=== PATIENT | male | born 1960 | race Caucasian/White ===

== ENCOUNTER → 2019-05-31 14:07 | Outpatient (BNVA) | payer BC, SELFPAY | PROVIDERS: Family Provider Nurse Practitioner; PCP Nurse Practitioner; Visit Provider Nurse Practitioner | DX: E11.65 Type 2 diabetes mellitus with hyperglycemia (principal); I10 Essential (primary) hypertension | CPT/HCPCS: 80053; 80061; 81003; 83036 ==

== ENCOUNTER → 2019-06-04 11:13 | Outpatient (BNVA) | payer BC, SELFPAY | PROVIDERS: Family Provider Nurse Practitioner; PCP Nurse Practitioner; Visit Provider Anesthesiology | DX: M51.16 Intervertebral disc disorders with radiculopathy, lumbar region (principal); M96.1 Postlaminectomy syndrome, not elsewhere classified; Z79.891 Long term (current) use of opiate analgesic; G89.29 Other chronic pain | CPT/HCPCS: 99214 ==

== ENCOUNTER → 2019-10-04 10:54 | Outpatient (BNVA) | payer BC, SELFPAY | PROVIDERS: Family Provider Nurse Practitioner; PCP Nurse Practitioner; Visit Provider Nurse Practitioner Family | DX: E11.65 Type 2 diabetes mellitus with hyperglycemia (principal); F41.1 Generalized anxiety disorder; E78.2 Mixed hyperlipidemia; I10 Essential (primary) hypertension; F41.9 Anxiety disorder, unspecified; F32.9 Major depressive disorder, single episode, unspecified | CPT/HCPCS: 80053; 80061; 83036; 85025 ==

== ENCOUNTER → 2019-10-08 08:59 | Outpatient (BNVA) | payer BC, SELFPAY | PROVIDERS: Family Provider Nurse Practitioner; PCP Nurse Practitioner; Visit Provider Anesthesiology | DX: M51.16 Intervertebral disc disorders with radiculopathy, lumbar region (principal); M96.1 Postlaminectomy syndrome, not elsewhere classified; Z79.891 Long term (current) use of opiate analgesic | CPT/HCPCS: 99213; 99214 ==

== ENCOUNTER → 2019-10-28 07:50 | Outpatient (BNVA) | payer BC, SELFPAY | PROVIDERS: Family Provider Nurse Practitioner; PCP Nurse Practitioner; Visit Provider Anesthesiology | DX: M70.62 Trochanteric bursitis, left hip (principal); Z79.891 Long term (current) use of opiate analgesic | CPT/HCPCS: 20610; 77002; 77003; J1030; J3490 ==

== ENCOUNTER → 2019-12-07 09:32 | Outpatient (BNVA) | payer BC, SELFPAY | PROVIDERS: Family Provider Nurse Practitioner; PCP Nurse Practitioner; Visit Provider Anesthesiology | DX: M51.16 Intervertebral disc disorders with radiculopathy, lumbar region (principal); M96.1 Postlaminectomy syndrome, not elsewhere classified; Z79.891 Long term (current) use of opiate analgesic | CPT/HCPCS: 99213; 99214 ==

== ENCOUNTER → 2019-12-29 13:21 | Outpatient (BNVA) | payer BC, SELFPAY | PROVIDERS: Family Provider Nurse Practitioner; PCP Nurse Practitioner; Visit Provider Anesthesiology | DX: M51.16 Intervertebral disc disorders with radiculopathy, lumbar region (principal); M96.1 Postlaminectomy syndrome, not elsewhere classified; Z79.891 Long term (current) use of opiate analgesic | CPT/HCPCS: 99213; 99214 ==

== ENCOUNTER → 2020-01-24 10:13 | Outpatient (BNVA) | payer BC, SELFPAY | PROVIDERS: Family Provider Nurse Practitioner; PCP Nurse Practitioner; Visit Provider Nurse Practitioner | DX: Z23 Encounter for immunization (principal); E11.65 Type 2 diabetes mellitus with hyperglycemia; E78.2 Mixed hyperlipidemia; I10 Essential (primary) hypertension; F41.9 Anxiety disorder, unspecified; F32.9 Major depressive disorder, single episode, unspecified | CPT/HCPCS: 80053; 81000; 83036 ==

== ENCOUNTER → 2020-02-01 13:01 | Outpatient (BNVA) | payer BC, SELFPAY | PROVIDERS: Family Provider Nurse Practitioner; PCP Nurse Practitioner; Visit Provider Anesthesiology | DX: M51.16 Intervertebral disc disorders with radiculopathy, lumbar region (principal); M96.1 Postlaminectomy syndrome, not elsewhere classified; Z79.891 Long term (current) use of opiate analgesic | CPT/HCPCS: 99213; 99214 ==

== ENCOUNTER → 2020-03-30 13:22 | Outpatient (BNVA) | payer BC, SELFPAY | PROVIDERS: Family Provider Nurse Practitioner; PCP Nurse Practitioner; Visit Provider Anesthesiology | DX: M51.16 Intervertebral disc disorders with radiculopathy, lumbar region (principal); M96.1 Postlaminectomy syndrome, not elsewhere classified; Z79.891 Long term (current) use of opiate analgesic | CPT/HCPCS: 99212; 99213; 99214 ==

== ENCOUNTER → 2020-04-03 14:09 | Outpatient (BNVA) | payer BC, SELFPAY | PROVIDERS: Family Provider Nurse Practitioner; PCP Nurse Practitioner; Visit Provider Anesthesiology Pain Medicine | DX: M54.42 Lumbago with sciatica, left side (principal); M25.552 Pain in left hip; M96.1 Postlaminectomy syndrome, not elsewhere classified; Z79.891 Long term (current) use of opiate analgesic | CPT/HCPCS: 99205; 99215 ==

== ENCOUNTER 2020-05-04 08:02 | Emergency (ER) | payer OTHER, SELFPAY ==
[2020-05-04] VITALS (8 sets, daily range): BP systolic 108–161; BP diastolic 72–93; PULSE 90–111; RESP 18–24; TEMP 36.4; O2SAT 84–93; BMI 47.2
--- NOTE | 2020-05-04 08:13 | ECG_ITS ---
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1960 Requested By: Shayy Anton Order Number: [id number] Reading MD: IRMA SAPP Measurements Intervals [place] Rate: 102 P: 40 CT: 152 QRS: 230 QRSD: 140 T: 56 QT: 356 QTc: 465 Interpretive Statements SINUS TACHYCARDIA RIGHT AXIS DEVIATION [QRS AXIS > 100] RIGHT BUNDLE BRANCH BLOCK [120+ ms QRS DURATION, UPRIGHT V1, 40+ ms S IN I/aVL/V4/V5/V6] Compared to ECG 01/31/2018 05:26:49 Right-axis deviation now present Sinus rhythm no longer present Electronically Signed On 05-04-2020 20:28:50 COMMERCIAL LITIGATION ATTORNEY by IRMA SAPP [email or web address] [email or web address] medical [email or web address]/[id number]
--- NOTE | 2020-05-04 08:13 | XR_ITS ---
WS: [id number] Portable AP upright chest, 05/04/2020 Clinical Data: COVID Comparison: PA and lateral chest, 12/02/2017. Findings: No nodules, masses or effusions are seen. There are calcified granulomas in both irene. The heart is normal. No pneumonia or pneumothorax is seen. The aortic arch shows mild calcification. XR/XR chest 1V portable [id number] Impression: Old granulomatous disease and atherosclerosis.
--- NOTE | 2020-05-04 08:16 | W.ED.COVID ---
HPI - COVID General: Chief Complaint: COVID symptoms Stated Complaint: Sob/Weakness Time Seen by Provider: 05/04/20 08:06 History of Present Illness: HPI Narrative: This patient is a 60-year-old male who presents today with concerns that he has Covid. His had Covid and finished her 10 days of quarantine 1 week ago. 2 days after she ended her quarantine he started having symptoms. He has had 5 days of extreme fatigue, shortness of breath, severe diarrhea and low-grade fevers. He said he has not really had much of a cough. He feels lightheaded when he gets up and moves around. He is a diabetic with a high BMI. He also has history of cardiac disease and high blood pressure. He does not normally use oxygen at home. MD complaint: reported COVID exposure and has COVID symptoms Prior covid testing: no COVID 19 common symptoms: positive fever(s), chills, dyspnea, fatigue, body aches, headache(s), nasal congestion, nausea and diarrhea COVID 19 other sytmptoms: positive requiring oxygen; negative chest pain Onset (ago): day(s) (5) Severity: slowly worsening Pertinent comorbid conditions: diabetes, hypertension, heart disease and obesity Treatment prior to arrival: other (Imodium) COVID Results: SARS-CoV-2 Antigen (Rapid) Positive (Negative) H 05/04/20 08:42 05/04/20 Review of Systems General: Reports: 10 or more systems reviewed and unremarkable except in HPI and below Const: Reports: fever(s), chills, body aches and fatigue Eyes: Denies: change in vision ENMT: Reports: nasal congestion Card: Denies: chest pain Resp: Reports: dyspnea GI: Reports: nausea and diarrhea : Denies: flank pain Musc: Denies: neck pain or back pain Skin/Breast: Denies: rash Neuro: Reports: headache(s) [place]/Lymph: Denies: easy bruising or easy bleeding [facility] PFSH: Medical History (Updated 05/04/20 @ 11:58 by Shayy Trevizo MD) Acute bilateral low back pain with left-sided sciatica Anxiety and depression CAD (coronary artery disease) Displacement of lumbar disc with radiculopathy Encounter for long-term opiate analgesic use Essential (primary) hypertension Greater trochanteric bursitis of left hip Insomnia 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 Lumbar disc disease with radiculopathy Mixed hyperlipidemia Obesity Post laminectomy syndrome Uncontrolled diabetes mellitus with hyperglycemia Surgical History History of lumbar surgery Left L4-L5 hemilaminotomy/foraminotomy; 01[place]30/2018[place] [facility] [place] of umbilical hernia 2017 Family History Mother Diabetes Heart disease Denies family history of Bleeding disorder Social History Smoking and tobacco status: former smoker Second hand smoke exposure: No Smoking risk assessment/counseling performed?: No Alcohol intake: never Desire information about alcohol rehabilitation?: No Counseling given: No Desire information about substance/drug rehabilitation?: No Counseling given: No Adopted: No Caregiver/support person: No Lives independently: Yes Household members: spouse Housing: House Marital status: Current occupational status: unemployed History of recent travel: No Current gender identity: Male Physical Exam Const: COMMON NORMALS: patient oriented x3, no limitations and alert GENERAL APPEARANCE: cooperative NUTRITIONAL APPEARANCE: obese morbidly obese HENMT: HEAD & SCALP: normal to inspection FACE & SINUS: normal facial exam Eye: GENERAL EYE: appearance normal, both eyes and all related structures Neck/C-Spine: COMMON NORMALS: supple, no meningeal signs and no JVD Chest: COMMONS NORMALS: normal inspection of the chest Resp: EFFORT & INSPECTION: Yes tachypneic AUSCULTATION: diminished lung sounds Cardio: COMMON NORMALS: no JVD, regular rhythm and No murmurs present (Cardio) RATE: tachycardic RHYTHM: regular rhythm GI: COMMON NORMALS: Normal to inspection, nondistended, normoactive bowel sounds present, Soft to palpation and non-tender INSPECTION: Yes normal to inspection AUSCULTATION: Yes normoactive bowel sounds PALPATION: Yes Soft to palpation Back/Pelvis: COMMON NORMALS: thoracic and lumbar spine normal to inspection Extremity: COMMON NORMALS: normal to inspection Neuro: COMMON NORMALS: patient oriented x3, moves all extremities, no focal motor deficits and no sensory deficits noted SENSORIUM/ORIENTATION: Yes alert MENINGEAL SIGNS: Yes no meningeal signs Psych: COMMON NORMALS: mental status grossly normal, cooperative and normal affect Skin: COMMON NORMALS: no rashes or lesions noted and turgor normal GENERAL SKIN EXAM: no rashes or lesions noted and turgor normal Course ED course: Patient with a positive Covid test which was not surprising given the clinical scenario. Chest x-ray was unremarkable but on CT it was clear that he had some Covid pneumonia. No PE. The rest of his labs were fairly unremarkable. He does have some evidence of elevated markers of inflammation. Blood sugar was elevated slightly and he was slightly hyponatremic. He remained comfortable on 2 or 3 L of oxygen in the ER. We discussed at some length the potential for worsening in the next few days. He is on day 5 and understands the day 7-10 is often the worst as far as respiratory issues. He also understands that he is at risk of deterioration given his history of diabetes, hypertension, obesity. We discussed options for admission versus going home with oxygen. He very much prefers to go home and I think that is completely appropriate at this time. He also understands that there is a reasonable chance that he may end up having to be hospitalized within the next few days. His is home with him and is recovered from Covid. He was sent home with oxygen at 3 L and a pulse oximeter. He was also sent home on Decadron and was given 1 dose here. Vital Signs: Vital signs: Vital Signs Temperature 97.5 F L 05/04/20 08:06 Pulse Rate 90 05/04/20 13:53 Respiratory Rate 24 H 05/04/20 13:53 Blood Pressure 125/93 05/04/20 13:53 Pulse Oximetry 93 05/04/20 13:53 MDM - COVID MDM Narrative: Medical decision making narrative: Covid very likely given the clinical scenario. Also history of cardiac disease and CHF is a possibility. Other viral infections. Bacterial pneumonia. Sepsis. [place]. EKG shows sinus tachycardia with a ventricular rate of 101. Normal intervals. Right bundle branch block is noted with a QRS duration of 136 ms. No ischemic changes. Lab Data: Labs: Lab Results 05/04/20 05/04/20 05/04/20 Range/Units 08:42 08:42 08:42 WBC 5.1 (4.0-10.0) 10^3/ uL RBC 6.20 H (4.1-5.3) 10^6/u L Hgb 17.8 H (11.7-16.6) g/dL Hct 53.7 H (42.0-52.0) % MCV 86.6 (80-94) fL MCH 28.7 (28.0-34.0) pg MCHC 33.1 (30.0-36.0) g/dL RDW 12.9 (12.1-15.1) % Plt Count 187 (130-400) 10^3/c mm MPV 10.1 (7.4-10.4) fL Neut % (Auto) 62.4 % Lymph % (Auto) 25.5 % [place] % (Auto) 10.7 % Eos % (Auto) 0.4 % Baso % (Auto) 0.6 % Neut # (Auto) 3.15 (1.8-7.7) 10^3/u L Lymph # (Auto) 1.3 (0.8-4.8) 10^3/u L [place] # (Auto) 0.5 (0.2-0.9) 10^3/u L Eos # (Auto) 0.0 (0.0-0.8) 10^3/u L Baso # (Auto) 0.0 (0.0-0.1) 10^3/u L Nucleated RBC % (a uto) 0 % Nucleated RBCs # 0.0 /100WBC ESR 23 H (0-10) mm/hr D-Dimer (0-0.59) ug/mIFE U Sodium 129 L (136-145) mmol/L Potassium 4.4 (3.5-5.1) mmol/L Chloride 89 L (98-107) mmol/L Carbon Dioxide 23 (22-29) mmol/L Anion Gap 21.4 H (5-19) BUN 15 (8-23) mg/dL Creatinine 0.9 (0.7-1.2) mg/dL GFR Calculation 85.5 L (90-130) mL/min Glucose 286 H (65-115) mg/dL Calculated Osmolal ity 279 L (285-295) mOsm/k g Lactic Acid (0.5-2.2) mmol/L Calcium 8.9 (8.5-10.5) mg/dL Ferritin 540 H (30-400) ng/mL Total Bilirubin 0.4 (0.15-1.2) mg/dL AST 50 H (0-40) U/L ALT 39 (0-41) U/L Alkaline Phosphata se 52 (40-130) IU/L Troponin T Baselin e (0-15) ng/L Troponin T 120 Min [place] (0-15) ng/L Delta Troponin T (0-10) ABS# C-Reactive Protein 22.7 H (0.0-4.9) mg/L NT-Pro-B Natriuret Pep 45 (0-125) pg/mL Total Protein 7.0 (6.6-8.7) g/dL Albumin 3.9 (3.5-5.2) g/dL Globulin 3.1 (1.3-4.6) g/dL Procalcitonin 0.15 (0-0.5) ng/mL Urine Color (Yellow) Urine Appearance (CLEAR) Urine pH (5-7) Ur Specific Gravit y (1.005-1.030) Urine Protein (Negative) Urine Glucose (UA) (Normal) Urine Ketones (Negative) Urine Blood (Negative) Urine Nitrate (Negative) Urine Bilirubin (Negative) Urine Urobilinogen (Negative) mg/dL Ur Leukocyte Stacey ase (Negative) SARS-CoV-2 Ag (Rap id) (Negative) 05/04/20 05/04/20 05/04/20 Range/Units 08:42 08:42 08:42 WBC (4.0-10.0) 10^3/ uL RBC (4.1-5.3) 10^6/u L Hgb (11.7-16.6) g/dL Hct (42.0-52.0) % MCV (80-94) fL MCH (28.0-34.0) pg MCHC (30.0-36.0) g/dL RDW (12.1-15.1) % Plt Count (130-400) 10^3/c mm MPV (7.4-10.4) fL Neut % (Auto) % Lymph % (Auto) % [place] % (Auto) % Eos % (Auto) % Baso % (Auto) % Neut # (Auto) (1.8-7.7) 10^3/u L Lymph # (Auto) (0.8-4.8) 10^3/u L [place] # (Auto) (0.2-0.9) 10^3/u L Eos # (Auto) (0.0-0.8) 10^3/u L Baso # (Auto) (0.0-0.1) 10^3/u L Nucleated RBC % (a uto) % Nucleated RBCs # /100WBC ESR (0-10) mm/hr D-Dimer 1.03 H (0-0.59) ug/mIFE U Sodium (136-145) mmol/L Potassium (3.5-5.1) mmol/L Chloride (98-107) mmol/L Carbon Dioxide (22-29) mmol/L Anion Gap (5-19) BUN (8-23) mg/dL Creatinine (0.7-1.2) mg/dL GFR Calculation (90-130) mL/min Glucose (65-115) mg/dL Calculated Osmolal ity (285-295) mOsm/k g Lactic Acid 2.0 (0.5-2.2) mmol/L Calcium (8.5-10.5) mg/dL Ferritin (30-400) ng/mL Total Bilirubin (0.15-1.2) mg/dL AST (0-40) U/L ALT (0-41) U/L Alkaline Phosphata se (40-130) IU/L Troponin T Baselin e (0-15) ng/L Troponin T 120 Min [place] (0-15) ng/L Delta Troponin T (0-10) ABS# C-Reactive Protein (0.0-4.9) mg/L NT-Pro-B Natriuret Pep (0-125) pg/mL Total Protein (6.6-8.7) g/dL Albumin (3.5-5.2) g/dL Globulin (1.3-4.6) g/dL Procalcitonin (0-0.5) ng/mL Urine Color (Yellow) Urine Appearance (CLEAR) Urine pH (5-7) Ur Specific Gravit y (1.005-1.030) Urine Protein (Negative) Urine Glucose (UA) (Normal) Urine Ketones (Negative) Urine Blood (Negative) Urine Nitrate (Negative) Urine Bilirubin (Negative) Urine Urobilinogen (Negative) mg/dL Ur Leukocyte Stacey ase (Negative) SARS-CoV-2 Ag (Rap id) Positive H (Negative) 05/04/20 05/04/20 05/04/20 Range/Units 08:42 09:35 11:07 WBC (4.0-10.0) 10^3/ uL RBC (4.1-5.3) 10^6/u L Hgb (11.7-16.6) g/dL Hct (42.0-52.0) % MCV (80-94) fL MCH (28.0-34.0) pg MCHC (30.0-36.0) g/dL RDW (12.1-15.1) % Plt Count (130-400) 10^3/c mm MPV (7.4-10.4) fL Neut % (Auto) % Lymph % (Auto) % [place] % (Auto) % Eos % (Auto) % Baso % (Auto) % Neut # (Auto) (1.8-7.7) 10^3/u L Lymph # (Auto) (0.8-4.8) 10^3/u L [place] # (Auto) (0.2-0.9) 10^3/u L Eos # (Auto) (0.0-0.8) 10^3/u L Baso # (Auto) (0.0-0.1) 10^3/u L Nucleated RBC % (a uto) % Nucleated RBCs # /100WBC ESR (0-10) mm/hr D-Dimer (0-0.59) ug/mIFE U Sodium (136-145) mmol/L Potassium (3.5-5.1) mmol/L Chloride (98-107) mmol/L Carbon Dioxide (22-29) mmol/L Anion Gap (5-19) BUN (8-23) mg/dL Creatinine (0.7-1.2) mg/dL GFR Calculation (90-130) mL/min Glucose (65-115) mg/dL Calculated Osmolal ity (285-295) mOsm/k g Lactic Acid (0.5-2.2) mmol/L Calcium (8.5-10.5) mg/dL Ferritin (30-400) ng/mL Total Bilirubin (0.15-1.2) mg/dL AST (0-40) U/L ALT (0-41) U/L Alkaline Phosphata se (40-130) IU/L Troponin T Baselin e 10 (0-15) ng/L Troponin T 120 Min [place] 9.90 (0-15) ng/L Delta Troponin T -0.10 L (0-10) ABS# C-Reactive Protein (0.0-4.9) mg/L NT-Pro-B Natriuret Pep (0-125) pg/mL Total Protein (6.6-8.7) g/dL Albumin (3.5-5.2) g/dL Globulin (1.3-4.6) g/dL Procalcitonin (0-0.5) ng/mL Urine Color Yellow (Yellow) Urine Appearance Clear (CLEAR) Urine pH 5 (5-7) Ur Specific Gravit y 1.020 (1.005-1.030) Urine Protein Neg (Negative) Urine Glucose (UA) 4+ H (Normal) Urine Ketones 1+ H (Negative) Urine Blood Neg (Negative) Urine Nitrate Negative (Negative) Urine Bilirubin Neg (Negative) Urine Urobilinogen Norm (Negative) mg/dL Ur Leukocyte Stacey ase Negative (Negative) SARS-CoV-2 Ag (Rap id) (Negative) COVID Results: SARS-CoV-2 Antigen (Rapid) Positive (Negative) H 05/04/20 08:42 05/04/20 Discharge Plan Discharge Patient Disposition: Home Clinical Impression: Severe acute respiratory syndrome coronavirus 2 (SARS-CoV-2) antibody negative, Essential (primary) hypertension Uncontrolled diabetes mellitus with hyperglycemia Qualifiers: Diabetes mellitus type: type 2 Qualified Code(s): E11.65 - Type 2 diabetes mellitus with hyperglycemia Obesity Qualifiers: Obesity type: unspecified obesity type Obesity classification: adult class 3 (BMI >= 40) Serious obesity comorbidity presence: with serious comorbidity Body mass index: BMI 45.0-49.9 Qualified Code(s): E66.01 - Morbid (severe) obesity due to excess calories Condition: Stable Prescriptions: New dexamethasone 6 mg tablet 6 mg PO DAILY Qty: 7 RF: 0 No Action hydrocodone-acetaminophen 10-325 mg tablet 1 tab PO TID PRN (Reason: pain) 30 Days Qty: 90 RF: 0 aspirin 81 mg tablet,delayed release (DR/EC) 81 mg PO QAM RF: 0 nitroglycerin 0.4 mg tablet, sublingual 0.4 mg SUBLINGUAL Q5M PRN (Reason: chest pain) Qty: 25 RF: 3 nortriptyline 50 mg capsule 50 mg PO BID Qty: 180 RF: 0 Invokana 300 mg tablet 300 mg PO QAM Qty: 90 RF: 0 escitalopram oxalate 20 mg tablet 20 mg PO DAILY Qty: 30 RF: 2 isosorbide mononitrate 30 mg tablet extended release 24 hr 30 mg PO QAM RF: 0 clopidogrel 75 mg tablet 75 mg PO QAM RF: 0 lisinopril 10 mg tablet 10 mg PO QPM RF: 0 fenofibrate nanocrystallized 145 mg tablet 145 mg PO BEDTIME RF: 0 dulaglutide 1.5 mg/0.5 mL pen injector 1.5 mg SUBCUT Q7D RF: 0 Discharge Orders: Discharge ED (Routine); Ordered 05/04/20 Ordered By: Shayy Trevizo Other Ambulatory Orders: DME: Oxygen (Order) Location: None Selected Ordered By: Shayy Trevizo Referrals: Kael Alvarez, [employer] [Primary Care Provider] - Discharge Diet: Usual diet Discharge Activity: Increase activity as tolerated Patient Instructions: Viral Pneumonia (ED) Activity Restrictions/Additional Instructions: Return to the ED if worsening symptoms including trouble breathing, vomiting, confusion. Use the oxygen as prescribed. You can go up to 5 liters per minute of flow if needed to keep the oxygen in your blood greater than 90%. If you have to use that much oxygen then you need to come back to the hospital. Coding Level of Care Code ED Floor Service Worker [place] for Katie Fwd Exam Comprehensive
--- NOTE | 2020-05-04 08:52 | PC.PHAR ---
pt states he takes the medications that are entered -pt states he sometimes takes the nortriptyline 50mg po qam,50mg po daily@21 and then sometimes has to take another one about 2am-pt states it varies depending on when he wakes up what he takes
[2020-05-04 08:53] LABS: Basophils % 0.6 %; Eosinophils % 0.4 %; Hematocrit 53.7 % (42.0-52.0); Hemoglobin 17.8 g/dL (11.7-16.6); Lymphocytes # 1.3 10^3/uL (0.8-4.8); Lymphocytes % 25.5 %; Mean Corpuscular HGB Conc 33.1 g/dL (30.0-36.0); Mean Corpuscular Hemoglobin 28.7 pg (28.0-34.0); Mean Corpuscular Volume 86.6 fL (80-94); Mean Platelet Volume 10.1 fL (7.4-10.4); Monocytes # 0.5 10^3/uL (0.2-0.9); Monocytes % 10.7 %; Neutrophils # 3.15 10^3/uL (1.8-7.7); Neutrophils % 62.4 %; Nucleated Red Blood Cells % 0 %; Platelet Count 187 10^3/cmm (130-400); Red Cell Distribution Width 12.9 % (12.1-15.1); White Blood Count 5.1 10^3/uL (4.0-10.0)
--- NOTE | 2020-05-04 09:01 | PC.NURSE ---
had the COVID. Has SOB with any kind of movement. Very tired and can sleep
[2020-05-04] MEDS: dexamethasone 10 mg/mL INJ IVP (09:08)
[2020-05-04 09:12] LABS: D Dimer 1.03 ug/mIFEU (0-0.59)
--- NOTE | 2020-05-04 09:12 | CT_ITS ---
WS: [id number] CTA OF THE CHEST WITH PULMONARY EMBOLISM PROTOCOL TECHNIQUE: High-resolution contrast enhanced CTA of the chest with coronal and sagittal reformatted i mages with pulmonary embolism protocol. MIP images are also reviewed. CLINICAL INFORMATION: elevated d-dimer, COVID COMPARISON: None. DLP: 1185.[address] scans at [facility] use at least one of these dose optimization techniques: automat ed exposure control; mA and/or kV adjustment per patient size (includes targeted exams where dose is matched to clinical indication); or iterative reconstruction. FINDINGS: Proximal main pulmonary arteries are normal. Segmental and subsegmental pulmonary arteries appear nor mal. No evidence of pulmonary embolus. No filling defects. Scattered bilateral hazy ground glass infi ltrates more prominent in the perihilar regions. Findings are compatible with COVID 19 pneumonia. No focal consolidation. Aortic calcification. Normal caliber thoracic aorta. Coronary calcification. No mediastinal or hilar lymphadenopathy. No axillary lymphadenopathy. Adrenal glands are normal. Diffuse fatty infiltrationliver. Hepatomegaly. Hypertrophic changes thorac ic spine. CT/CT angio chest PE protcl [id number] IMPRESSION: 1. No evidence of pulmonary embolus. 2. Scattered bilateral lateral hazy groundglass infiltrates more prominent in the perihilar regions compatible with COVID 19 pneumonia. 3. No focal consolidation. 4. Hepatomegaly with diffuse fatty infiltration.
[2020-05-04 09:15] LABS: SARS Covid-2 Antigen Positive (Negative)
[2020-05-04 09:17] LABS: Troponin(5th) Baseline 10 ng/L (0-15)
[2020-05-04 09:24] LABS: NT Pro B Type Natriuretic Pept 45 pg/mL (0-125); Procalcitonin 0.15 ng/mL (0-0.5)
[2020-05-04 09:36] LABS: Alanine Aminotransferase 39 U/L (0-41); Albumin Level 3.9 g/dL (3.5-5.2); Alkaline Phosphatase 52 IU/L (40-130); Anion Gap 21.4 (5-19); Aspartate Amino Transferase 50 U/L (0-40); Blood Urea Nitrogen 15 mg/dL (8-23); C Reactive Protein 22.7 mg/L (0.0-4.9); Calcium 8.9 mg/dL (8.5-10.5); Carbon Dioxide 23 mmol/L (22-29); Chloride 89 mmol/L (98-107); Ferritin 540 ng/mL (30-400); Globulin 3.1 g/dL (1.3-4.6); Glomerular Filtration Rate 85.5 mL/min (90-130); Glucose 286 mg/dL (65-115); Osmolality Calculated 279 mOsm/kg (285-295); Potassium 4.4 mmol/L (3.5-5.1); Sodium 129 mmol/L (136-145); Total Bilirubin 0.4 mg/dL (0.15-1.2)
[2020-05-04 09:49] LABS: Add Urine Microscopic? NO
[2020-05-04 10:08] LABS: Urine Appearance Clear (CLEAR); Urine Color Yellow (Yellow); pH Urine 5 (5-7)
[2020-05-04 10:09] LABS: Bilirubin Urine Neg (Negative); Blood Urine Neg (Negative); Glucose Urine UA 4+ (Normal); Ketones Urine 1+ (Negative); Leukocyte Esterase Urine Negative (Negative); Nitrate Urine Negative (Negative); Protein Urine Neg (Negative); Urobilinogen Urine Norm (Negative)
--- NOTE | 2020-05-04 10:15 | ECG_ITS ---
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
[2020-05-04 10:37] LABS: Erythrocyte Sedimentation Rate 23 mm/hr (0-10)
[2020-05-04] MEDS: iohexol 350 mg/mL 100 mL Btl IV ×2 (10:42→10:43)
== END 2020-05-04 13:54 | disposition home or self-care (01) ==
PROVIDERS: Emergency Provider Emergency Medicine; PCP Nurse Practitioner
DX: Z20.822 Contact with and (suspected) exposure to COVID-19 (principal); I10 Essential (primary) hypertension; E11.65 Type 2 diabetes mellitus with hyperglycemia; E66.01 Morbid (severe) obesity due to excess calories; Z68.42 Body mass index [BMI] 45.0-49.9, adult; Z79.02 Long term (current) use of antithrombotics/antiplatelets; Z79.82 Long term (current) use of aspirin; I25.10 Atherosclerotic heart disease of native coronary artery without angina pectoris; E78.2 Mixed hyperlipidemia; Z87.891 Personal history of nicotine dependence
CPT/HCPCS: 12345; 36415; 71045; 71275; 80053; 81003; 82728; 83605; 83880; 84145; 84484; 85025; 85378; 85651; 86140; 87426; 93005; 96374; 99283; 99284; J1100; Q9967

== ENCOUNTER → 2020-05-19 11:19 | Outpatient (BNVA) | payer OTHER, SELFPAY | PROVIDERS: PCP Nurse Practitioner; Visit Provider Nurse Practitioner | DX: E11.65 Type 2 diabetes mellitus with hyperglycemia (principal); I10 Essential (primary) hypertension | CPT/HCPCS: 80053; 80061; 81000; 83036 ==

== ENCOUNTER → 2020-05-24 10:50 | Outpatient (BNVA) | payer OTHER, SELFPAY | PROVIDERS: PCP Nurse Practitioner; Visit Provider Nurse Practitioner | DX: U07.1 COVID-19 (principal); E11.65 Type 2 diabetes mellitus with hyperglycemia; I10 Essential (primary) hypertension | CPT/HCPCS: 71046 ==

== ENCOUNTER → 2020-06-22 09:30 | Outpatient (BNVA) | payer OTHER, SELFPAY | PROVIDERS: PCP Nurse Practitioner; Visit Provider Anesthesiology | DX: M51.16 Intervertebral disc disorders with radiculopathy, lumbar region (principal); M96.1 Postlaminectomy syndrome, not elsewhere classified; F51.01 Primary insomnia; Z79.891 Long term (current) use of opiate analgesic | CPT/HCPCS: 99213 ==

== ENCOUNTER → 2020-07-20 14:37 | Outpatient (BNVA) | payer OTHER, SELFPAY | PROVIDERS: PCP Nurse Practitioner; Visit Provider Anesthesiology Pain Medicine | DX: M25.552 Pain in left hip (principal); M96.1 Postlaminectomy syndrome, not elsewhere classified; M54.42 Lumbago with sciatica, left side; Z79.891 Long term (current) use of opiate analgesic | CPT/HCPCS: 99215 ==

== ENCOUNTER → 2020-08-10 10:47 | Outpatient (BNVA) | payer OTHER, SELFPAY | PROVIDERS: PCP Nurse Practitioner; Visit Provider Anesthesiology | DX: M51.16 Intervertebral disc disorders with radiculopathy, lumbar region (principal); M96.1 Postlaminectomy syndrome, not elsewhere classified; Z79.891 Long term (current) use of opiate analgesic | CPT/HCPCS: 99213; 99214 ==

== ENCOUNTER → 2020-08-22 13:32 | Outpatient (BNVA) | payer OTHER, SELFPAY | PROVIDERS: PCP Nurse Practitioner; Referring Provider Anesthesiology; Visit Provider Orthopaedic Surgery | DX: M54.42 Lumbago with sciatica, left side (principal) | CPT/HCPCS: 72110 ==

== ENCOUNTER 2020-09-20 06:00 | Outpatient (RCR) | payer OTHER, SELFPAY | END 2020-10-18 23:59 | disposition home or self-care (01) | LOC: SPT 06:00 | PROVIDERS: PCP Nurse Practitioner; Referring Provider Orthopaedic Surgery; Visit Provider Orthopaedic Surgery | DX: M54.40 Lumbago with sciatica, unspecified side (principal) | CPT/HCPCS: 97110; 97140; 97163 ==

== ENCOUNTER → 2020-09-22 10:32 | Outpatient (BNVA) | payer OTHER, SELFPAY | PROVIDERS: PCP Nurse Practitioner; Visit Provider Nurse Practitioner | DX: E11.65 Type 2 diabetes mellitus with hyperglycemia (principal) | CPT/HCPCS: 80053; 80061; 81000; 83036 ==

== ENCOUNTER → 2020-10-27 10:54 | Outpatient (BNVA) | payer OTHER, SELFPAY | PROVIDERS: PCP Nurse Practitioner; Visit Provider Anesthesiology | DX: M51.16 Intervertebral disc disorders with radiculopathy, lumbar region (principal); M96.1 Postlaminectomy syndrome, not elsewhere classified; Z87.891 Personal history of nicotine dependence; Z79.891 Long term (current) use of opiate analgesic | CPT/HCPCS: 99213 ==

== ENCOUNTER → 2020-12-08 09:31 | Outpatient (BNVA) | payer OTHER, SELFPAY | PROVIDERS: PCP Nurse Practitioner; Visit Provider Nurse Practitioner | DX: E11.65 Type 2 diabetes mellitus with hyperglycemia (principal); F41.9 Anxiety disorder, unspecified; F32.9 Major depressive disorder, single episode, unspecified; I10 Essential (primary) hypertension; F51.01 Primary insomnia; E55.9 Vitamin D deficiency, unspecified | CPT/HCPCS: 80053; 80061; 81000; 82306; 83036; 83721; 84443 ==

== ENCOUNTER → 2021-01-05 10:40 | Outpatient (BNVA) | payer OTHER, SELFPAY | PROVIDERS: PCP Nurse Practitioner; Visit Provider Anesthesiology | DX: M51.16 Intervertebral disc disorders with radiculopathy, lumbar region (principal); M96.1 Postlaminectomy syndrome, not elsewhere classified; Z79.891 Long term (current) use of opiate analgesic | CPT/HCPCS: 99213 ==

== ENCOUNTER → 2021-03-06 09:05 | Outpatient (BNVA) | payer OTHER, SELFPAY | PROVIDERS: PCP Nurse Practitioner Family; Visit Provider Anesthesiology | DX: G89.29 Other chronic pain (principal); M51.16 Intervertebral disc disorders with radiculopathy, lumbar region; M96.1 Postlaminectomy syndrome, not elsewhere classified; Z79.891 Long term (current) use of opiate analgesic; Z79.899 Other long term (current) drug therapy; Z87.891 Personal history of nicotine dependence | CPT/HCPCS: 99214 ==

== ENCOUNTER → 2021-03-07 09:00 | Outpatient (BNVA) | payer OTHER, SELFPAY | PROVIDERS: PCP Nurse Practitioner Family; Visit Provider Nurse Practitioner Family | DX: E11.65 Type 2 diabetes mellitus with hyperglycemia (principal); M51.16 Intervertebral disc disorders with radiculopathy, lumbar region | CPT/HCPCS: 80053; 80061; 82043; 82306; 83036; 84443; 85025 ==

== ENCOUNTER → 2021-09-24 12:22 | Outpatient (BNVA) | payer OTHER, SELFPAY | PROVIDERS: PCP Nurse Practitioner Family; Visit Provider Family Medicine | DX: E11.65 Type 2 diabetes mellitus with hyperglycemia (principal); E78.2 Mixed hyperlipidemia; I10 Essential (primary) hypertension | CPT/HCPCS: 80053; 80061; 83036; 84443; 85025 ==

== ENCOUNTER 2021-10-23 06:00 | Outpatient (RCR) | payer OTHER, SELFPAY | END 2021-11-18 23:59 | disposition home or self-care (01) | LOC: TPT 06:00 | PROVIDERS: PCP Nurse Practitioner Family; Referring Provider Anesthesiology Pain Medicine; Visit Provider Anesthesiology Pain Medicine | DX: M96.1 Postlaminectomy syndrome, not elsewhere classified (principal) | CPT/HCPCS: 97110; 97163 ==

== ENCOUNTER 2021-11-19 06:00 | Outpatient (RCR) | payer OTHER, SELFPAY | END 2021-12-18 14:53 | disposition home or self-care (01) | LOC: TPT 06:00 | PROVIDERS: PCP Nurse Practitioner Family; Visit Provider Anesthesiology Pain Medicine | DX: M96.1 Postlaminectomy syndrome, not elsewhere classified (principal) | CPT/HCPCS: 97110 ==

== ENCOUNTER → 2022-01-28 09:57 | Outpatient (BNVA) | payer OTHER, SELFPAY | PROVIDERS: PCP Nurse Practitioner Family; Visit Provider Nurse Practitioner Family | DX: E11.65 Type 2 diabetes mellitus with hyperglycemia (principal); Z12.5 Encounter for screening for malignant neoplasm of prostate; M25.50 Pain in unspecified joint; Z23 Encounter for immunization; F51.01 Primary insomnia; I25.10 Atherosclerotic heart disease of native coronary artery without angina pectoris; Z78.9 Other specified health status; E78.2 Mixed hyperlipidemia; F41.9 Anxiety disorder, unspecified; K63.5 Polyp of colon; I10 Essential (primary) hypertension; F32.9 Major depressive disorder, single episode, unspecified | CPT/HCPCS: 80053; 80061; 82306; 82607; 83036; 84443; 84550; 85025; 85651; 86038; 86140; 86200; 86431; G0103 ==

== ENCOUNTER 2022-05-29 07:09 | Day surgery (SDC) | payer OTHER, SELFPAY ==
[2022-05-27 10:15] VITALS: BMI 42.8
[2022-05-29 07:30] VITALS: BP 177/106; PULSE 105; RESP 18; TEMP 36.3; O2SAT 93
[2022-05-29] MEDS: sodium chloride 0.9% 1,000 ML 30 ML IV (07:35)
[2022-05-29 07:42] LABS: Glucose Point of Care 224 mg/dL (70-110)
--- NOTE | 2022-05-29 07:43 | P.ANESASSM_ITS ---
Pre-Anesthetic Assessment Height/Weight: Height 1.75 m Weight 131.542 kg Temp Pulse Resp BP Pulse Ox O2 Del Method 97.4 F L 105 H 18 177/106 93 05/29/22 07:30 05/29/22 07:30 05/29/22 07:30 05/29/22 07:30 05/29/22 07:30 05/29/22 07:30 Operation Date: 05/29/22 08:15 Proposed Procedures p Colonoscopy 43219,Z12.11(Not Applicable) - Hitesh Cheney DO Familial anesthetic complications: none Was Beta Marty taken within 24 hours: N/A Was Clonidine taken within 24 hours: N/A Last intake: Intake Last Liquid Date 05/28/22 Last Liquid Time 22:00 Last Solid Date 05/27/22 Last Solid Time 22:00 Social No alcohol and No tobacco Exam alert, oriented x 3, clear to auscultation bilaterally and regular rate & rhythm Airway Mallampati: Class III Comments: Comments: full dunne CV/HEM Coronary Artery Disease and Hypertension 01/30/18 ECHO CONCLUSIONS ?Normal LV size and ejection fraction.? ?Segmental wall motion analysis is difficult. ? No gross wall motion abnormalities noted. ?There is no pericardial effusion. ?Normal aortic annular size. ?Technically difficult study 12/19/17 LEXISCAN IMPRESSIONS ?1. Medium-sized reversible perfusion abnormality of? mid to apical anterior, ?mid to apical septal and apical lateral monteiro.? This is suggestive of ischemia? in LAD territory. ?2. The left ventricular ejection fraction is normal with a value of 59%. ?3. Mild hypokinesis of mid to apical anterior, septal and lateral monteiro. ?4.? There are no prior studies to compare. CONCLUSION: 1. No significant EKG changes with the LexiScan infusion. 2. No LexiScan induced chest pain or cardiac arrhythmia. 3. Normal blood pressure and heart rate response. 4. Sestamibi/sestamibi perfusion scan pending; see separate report. 03/24/2018 PFT Spirometry indicates a mild restrictive ventilatory defect. There is no significant bronchodilator response. Clinical correlation is recommended. 01/05/18 [facility] Due to worsening of angina and heart failure we decided to proceed with attempt to open upmid LAD [employer].? Stress test was also positive in LAD. Please note that patient was brought? back to attempt over mid chronically occluded LAD for ongoing worsening of angina. In the past were not able to open it up through radial approach and because of the fact high acceptable radiation and contrast does was achieved therefore we recommended bringing him back to groin approach. Right common iliac artery was used to to approach#1 Left main is normal#2 LAD has mid chronic occlusion#3 LCx has luminal irregularity. He underwent coronary angiogram through Right femoral approach on 01/05/18 and lesion was crossed and several balloon angioplasties were performed. TIMI3 flow was restored. Vessel small to be stented. Metabolic Diabetes Mellitus and Morbid Obesity Anesthetic Plan ASA status: 4 Anesthesia: MAC Risk of > 500 ml blood loss (7ml/kg in children): No Medications/Allergies Home Medications Medication Instructions Recorded Confirmed Last Taken Type aspirin 81 mg tablet,delayed 81 mg PO QAM 05/31/19 05/27/22 05/24/22 History release nitroglycerin 0.4 mg sublingual 0.4 mg sublingual Q5M PRN chest 02/23/20 05/27/22 Unknown Rx tablet pain #25 tabs hydrocodone 10 mg-acetaminophen 1 tab PO QID PRN pain 30 days #120 05/11/21 05/27/22 05/15/22 Rx 325 mg tablet tabs ezetimibe 10 mg tablet (Zetia) 10 mg PO DAILY #90 tabs 01/15/22 05/27/22 05/26/22 Rx sertraline 50 mg tablet (Zoloft) 50 mg PO DAILY #30 tabs 01/28/22 05/27/22 Unknown Rx clopidogrel 75 mg tablet 75 mg PO QAM #90 tabs 02/08/22 05/27/22 05/22/22 Rx ketoconazole 2 % topical cream 1 applic topical BID #60 grams 04/01/22 05/27/22 05/08/22 Rx lisinopril 10 mg tablet See Rx Instructions .Route 04/05/22 05/27/22 05/26/22 Rx .COMPLEX #90 tabs dulaglutide 4.5 mg/0.5 mL 4.5 mg (0.5 mL) SUBCUT .weekly #2 04/10/22 05/27/22 05/26/22 Rx subcutaneous pen injector mL (Trulicity) isosorbide mononitrate 30 mg 30 mg PO QAM #90 tabs 05/01/22 05/27/22 05/26/22 Rx tablet,extended release 24 hr zolpidem 10 mg tablet 10 mg PO .at bedtime #30 tabs 05/01/22 05/27/22 05/28/22 Rx fluticasone propionate 50 1 spray intranasal DAILY PRN 05/02/22 05/27/22 05/26/22 History mcg/actuation nasal Congestion spray,suspension glipizide 5 mg tablet, extended 5 mg PO BID 05/02/22 05/27/22 05/26/22 History release 24 hr empagliflozin 25 mg tablet See Rx Instructions .Route 05/17/22 05/27/22 05/23/22 Rx (Jardiance) .COMPLEX #90 tabs cholecalciferol (vitamin D3) 50 50 mcg PO DAILY 05/27/22 05/27/22 05/27/22 History mcg (2,000 unit) capsule (Vitamin D3) Allergies Allergy/AdvReac Type Severity Reaction Status Date / Time Penicillins Allergy Unknown swelling Verified 05/10/22 15:14 pravastatin Allergy Unknown leg cramps Verified 05/10/22 15:14 atorvastatin [From Lipitor] AdvReac muscle Verified 05/10/22 15:14 cramps Current Medications Generic Name Dose Route Start Last Admin Trade Name Freq PRN Reason Stop Dose Admin Sodium Chloride 1,000 mls @ 30 mls/hr 05/29/22 07:15 05/29/22 07:35 Sodium Chloride 0.9% IV 05/30/22 07:14 30 mls/hr .Q24H ALYCIA Administration PFSH Anesthesia Medical History Acute bilateral low back pain with left-sided sciatica Anxiety and depression Bursitis of hip CAD (coronary artery disease) Displacement of lumbar disc with radiculopathy Encounter for long-term opiate analgesic use Essential (primary) hypertension Greater trochanteric bursitis of left hip 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 Lumbar disc disease with radiculopathy Mixed hyperlipidemia Obesity Post laminectomy syndrome Uncontrolled diabetes mellitus with hyperglycemia Surgical History History of lumbar surgery [place] L4-L[place]ilamin[place] [facility] [place] of [place] her[place] Family History Mother Diabetes Heart disease Denies family history of Bleeding disorder Social History Smoking and tobacco status: former smoker (quit 10 years) Quit status (tobacco): has quit using tobacco Year quit tobacco: 10 years ago Second hand smoke exposure: No Smoking risk assessment/counseling performed?: No Alcohol intake: never Desire information about alcohol rehabilitation?: No Counseling given: No Desire information about substance/drug rehabilitation?: No Counseling given: No Adopted: No Caregiver/support person: No Lives independently: Yes Household members: spouse Housing: House Marital status: Current occupational status: unemployed History of recent travel: No Current gender identity: Male Data Anesthesia Cardiac Studies: No Data to Display
--- NOTE | 2022-05-29 08:38 | W.PM.OPSUD ---
Surgery/Procedure H&P Update DATE OF PROCEDURE: May 29, 2022 DATE H&P PERFORMED: 05/10/22 PLANNED PROCEDURE: Operation Date: 05/29/22 08:15 Proposed Procedures p Colonoscopy 24655,Z12.11(Not Applicable) - Hitesh Cheney DO
[2022-05-29 09:00] VITALS: BP 137/68; PULSE 89; RESP 16; TEMP 36.1; O2SAT 93
[2022-05-29 09:09] VITALS: BP 132/87; PULSE 89; RESP 18; O2SAT 94
--- NOTE | 2022-05-29 13:41 | ANE.PACU2 ---
Inpatient post-anesthesia follow up: Airway intact: Yes Vital signs: Temperature 97 F Pulse Rate 89 Respiratory Rate 18 Blood Pressure 132/87 Pulse Oximetry 94 Oxygen Delivery Me thod Room Air Oxygen Flow Rate Fraction of Inspir ed Oxygen Hydration adequate: Yes Nausea and vomiting: No Pain level: 1 Mental status: Baseline
== END 2022-05-29 09:31 | disposition home or self-care (01) ==
PROVIDERS: PCP Nurse Practitioner Family; Visit Provider Surgery
PROC: 0DJD8ZZ Inspection of Lower Intestinal Tract, Via Natural or Artificial Opening Endoscopic (ICD-10-PCS; CPT 45378; principal; 2022-05-29 08:15)
DX: Z12.11 Encounter for screening for malignant neoplasm of colon (principal); K57.30 Diverticulosis of large intestine without perforation or abscess without bleeding; D12.4 Benign neoplasm of descending colon; I25.10 Atherosclerotic heart disease of native coronary artery without angina pectoris; I10 Essential (primary) hypertension; E11.9 Type 2 diabetes mellitus without complications; E66.01 Morbid (severe) obesity due to excess calories; Z68.41 Body mass index [BMI] 40.0-44.9, adult; E78.2 Mixed hyperlipidemia
CPT/HCPCS: 36416; 45385; 82962; 88305; J2704; J3490; J7030

== ENCOUNTER → 2022-06-20 10:27 | Outpatient (BNVA) | payer OTHER, SELFPAY | PROVIDERS: PCP Nurse Practitioner Family; Visit Provider Nurse Practitioner Family | DX: E11.65 Type 2 diabetes mellitus with hyperglycemia (principal); I10 Essential (primary) hypertension; Z78.9 Other specified health status; I25.10 Atherosclerotic heart disease of native coronary artery without angina pectoris; F51.01 Primary insomnia; E78.2 Mixed hyperlipidemia; F41.9 Anxiety disorder, unspecified; F32.9 Major depressive disorder, single episode, unspecified; K63.5 Polyp of colon | CPT/HCPCS: 80053; 80061; 82043; 83036; 84443; 85025 ==

== ENCOUNTER → 2022-10-23 11:51 | Outpatient (BNVA) | payer OTHER, SELFPAY | PROVIDERS: PCP Nurse Practitioner Family; Visit Provider Internal Medicine Cardiovascular Disease | DX: I25.10 Atherosclerotic heart disease of native coronary artery without angina pectoris (principal); I45.10 Unspecified right bundle-branch block | CPT/HCPCS: 93005 ==

== ENCOUNTER → 2022-10-28 11:46 | Outpatient (BNVA) | payer OTHER, SELFPAY | PROVIDERS: PCP Nurse Practitioner Family; Visit Provider Nurse Practitioner Family | DX: E11.65 Type 2 diabetes mellitus with hyperglycemia (principal) | CPT/HCPCS: 71046; 80053; 80061; 83036; 84443; 85025 ==

== ENCOUNTER 2022-12-02 13:40 | Outpatient (CLI) | payer OTHER, SELFPAY ==
--- NOTE | 2022-12-02 14:00 | CT_ITS ---
WS: [id number] CT CHEST TECHNIQUE: Noncontrast CT of the chest with coronal and sagittal reformatted images. CLINICAL INFORMATION: R91.8 - Other nonspecific abnormal finding of lung field COMPARISON: CTA chest 2020 DLP: 675.[address] scans at [facility] use at least one of these dose optimization techniques: automated e xposure control; mA and/or kV adjustment per patient size (includes targeted exams where dose is matc hed to clinical indication); or iterative reconstruction. FINDINGS: No acute pulmonary infiltrates. No focal pneumonia or pleural fluid. No acute pulmonary inf iltrates today. 5 mm noncalcified nodule left upper lobe laterally. 6 mm nodular thickening along the right fissure. Hepatomegaly diffuse fatty filtration. Normal GE junction. Visualized adrenal glands are normal. Sple hussein artery calcification. Normal caliber thoracic aorta. Aortic calcification. Coronary calcification . No mediastinal or hilar lymphadenopathy. No axillary lymphadenopathy. Mild thoracic kyphosis. Hypertrophic changes thoracic spine. IMPRESSION: 1. 5 mm noncalcified nodule left upper lobe. Recommend 12-month follow-up. 2. 6 mm nodular thickening along the right fissure. 3. No acute pulmonary infiltrates. No focal pneumonia or pleural fluid. 4. Diffuse fatty filtration of the liver. 5. Aortic calcification and coronary calcification.
== END 2022-12-02 13:41 | disposition home or self-care (01) ==
LOC: RAD 13:42
PROVIDERS: PCP Nurse Practitioner Family; Visit Provider Nurse Practitioner Family
DX: R91.8 Other nonspecific abnormal finding of lung field (principal); K76.0 Fatty (change of) liver, not elsewhere classified; I70.0 Atherosclerosis of aorta; I25.10 Atherosclerotic heart disease of native coronary artery without angina pectoris
CPT/HCPCS: 71250

== ENCOUNTER 2022-12-06 07:45 | Outpatient (CLI) | payer OTHER, SELFPAY ==
[2022-12-06 07:58] VITALS: BMI 44.3
--- NOTE | 2022-12-06 08:56 | NMCV_ITS ---
NM conor perf SPECT r/s* [id number] Dino Méndez Age: 62 Gender: M : 1960 Exam Date: 12/06/2022 09:19 Ordering Phys: Xiomara Cardenas MD ([email or web address]) Technologist: JOSE ELIAS [place] Exam Location: [facility] Indications: SHORTNESS OF BREATH, ATHEROSCLEROTIC HEART DISEASE STRESS TEST Please see separate stress test report in [facility] for full findings IMAGE PROTOCOL Rest/Stress 1 Lexiscan Day Radiopharmaceutical Dose (mCi) Administration Site Administered by Rest: Tc-99m 10.7 IV Chris Rooney, INCINERATOR OPERATOR Sestamibi Stress:Tc-99m 32.7 IV Chris Rooney, INCINERATOR OPERATOR Sestamibi Rest: 06-Dec-2022 60 Discovery 630 Stress: 06-Dec-2022 30 Discovery 630 0.4mg Lexiscan. Images obtained in supine and prone position. SPECT RESULTS Technical Quality: Excellent Raw Data Analysis: Normal Image Corrections: No attenuation or motion correction applied Summed Stress Score: 7 Summed Rest Score: 4 Summed Difference Score: 3 PERFUSION FINDINGS Small sized partially reversible perfusion abnormality of mild severity of mid to apical anterior, mid to apical anteroseptal and apical lateral monteiro on stress images. FUNCTIONAL RESULTS (calculated via Gated SPECT) Stress Image LV EF (%): 72 Stress EDV (mL):79 TID: 0.98 Stress ESV (mL):22 FUNCTIONAL FINDINGS: The left ventricle is normal in size. Transient Ischemia Dilatation of 0.98. The left ventricular ejection fraction is normal with a value of 72%. There is normal left ventricular wall thickening. Normal end diastolic and end systolic volumes. IMPRESSIONS 1. Small sized partially reversible perfusion abnormality of mild severity of mid to apical anterior, mid to apical anteroseptal and apical lateral monteiro. 2. This may represent old myocardial infarction in left anterior descending artery territory with mild per-infarct ischemia. 3. Overall left ventricular systolic function is normal without regional wall motion abnormalities, LVEF=72%. 4. EKG portion of the study will be reported separately. Xiomara Cardenas MD (Electronically Signed) Final Date: 08 December 2022 11:30 S
--- NOTE | 2022-12-06 08:56 | ECG_ITS ---
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 Interpretive Statements NAME OF STUDY: LEXISCAN SESTAMIBI STRESS TEST INDICATION: CAD,SOB PROCEDURE: At the baseline, the blood pressure was 145/86 mmHg, oxygen saturation 94% with a heart rate of 80 beats per min. The electrocardiogram showed sinus rhythm with first-degree AV block. Right bundle branch. The Lexiscan was infused over a period of 20 seconds. A total of 0.4 milligrams of Lexiscan was infused. The stress phase was continued for a total of 5 minutes. Heart rate at the end of the stress phase was 85 bpm, oxygen saturation 92% with a blood pressure 113/83 mm Hg. The EKG at the peak infusion revealed no significant ST-T wave changes. Sestamibi was injected 20 seconds after the Lexiscan infusion. Blood pressure at the end of the recovery phase was 151/101 mmHg, oxygen saturation 93% with a heart rate of 97 beats per minute. CONCLUSION: 1. No significant EKG changes with the LexiScan infusion. 2. No LexiScan induced chest pain or cardiac arrhythmia. 3. Normal blood pressure and heart rate response. 4. Sestamibi/sestamibi perfusion scan pending; see separate report. Electronically Signed On 12-09-2022 18:02:16 CDT by Xiomara Cardenas M.D. [email or web address]
[2022-12-06] MEDS: regadenoson 0.4 Mg/5 ml Syringe IVP (09:58)
[2022-12-06 10:11] VITALS: BP 151/101; PULSE 97
== END 2022-12-06 07:46 | disposition home or self-care (01) ==
PROVIDERS: PCP Nurse Practitioner Family; Visit Provider Internal Medicine Cardiovascular Disease
DX: I25.10 Atherosclerotic heart disease of native coronary artery without angina pectoris (principal); R06.02 Shortness of breath; R94.31 Abnormal electrocardiogram [ECG] [EKG]
CPT/HCPCS: 36415; 78452; 93017; 96374; A9500; J2785

== ENCOUNTER → 2022-12-10 11:08 | Outpatient (BNVA) | payer OTHER, SELFPAY | PROVIDERS: PCP Nurse Practitioner Family; Visit Provider Anesthesiology Pain Medicine | DX: M51.36 Other intervertebral disc degeneration, lumbar region (principal); M25.552 Pain in left hip; M47.816 Spondylosis without myelopathy or radiculopathy, lumbar region | CPT/HCPCS: 72110; 73502 ==

== ENCOUNTER 2022-12-16 14:25 | Oncology outpatient (recurring) (ONCR) | payer OTHER, SELFPAY ==
[2022-12-09 10:40] VITALS: BP 128/89; PULSE 93; RESP 18; TEMP 36.2; O2SAT 94
[2022-12-09 10:48] LABS: Reticulocyte % 1.3 % (0.5-2.0)
[2022-12-09 11:09] LABS: Ferritin 128 ng/mL (30-400); Iron 155 ug/dL (59-158)
[2022-12-16 14:27] VITALS: BP 169/83; PULSE 92; RESP 18; TEMP 35.7; O2SAT 96
[2022-12-16 14:42] LABS: Basophils # 0.1 10^3/uL (0.0-0.1); Basophils % 0.8 %; Eosinophils # 0.2 10^3/uL (0.0-0.8); Eosinophils % 2.3 %; Lymphocytes # 2.4 10^3/uL (0.8-4.8); Lymphocytes % 36.5 %; Mean Corpuscular HGB Conc 33.4 g/dL (30-55); Mean Corpuscular Hemoglobin 29.1 pg (27-33); Mean Corpuscular Volume 87.3 fl (82-101); Mean Platelet Volume 9.3 fL (7.4-10.4); Monocytes # 0.4 10^3/uL (0.2-0.9); Monocytes % 6.6 %; Neutrophils % 53.3 %; Nucleated Red Blood Cells % 0 %; Platelet Count 286 10^3/cmm (157-399); Red Blood Count 5.73 10^6/uL (3.85-5.65); Red Cell Distribution Width 13.2 % (12.1-15.1); White Blood Count 6.55 10^3/uL (3.29-11.43)
== END 2022-12-19 23:59 | disposition home or self-care (01) ==
PROVIDERS: PCP Nurse Practitioner Family; Visit Provider Internal Medicine Medical Oncology
DX: D45 Polycythemia vera (principal)
CPT/HCPCS: 36415; 82668; 82728; 83540; 85025; 85045; 99195

== ENCOUNTER → 2022-12-25 14:13 | Outpatient (BNVA) | payer OTHER, SELFPAY | PROVIDERS: PCP Nurse Practitioner Family; Visit Provider Anesthesiology Pain Medicine | DX: M16.9 Osteoarthritis of hip, unspecified (principal) | CPT/HCPCS: 77002 ==

== ENCOUNTER 2022-12-30 10:00 | Outpatient (CLI) | payer OTHER, SELFPAY ==
--- NOTE | 2022-12-30 10:00 | USCV_ITS ---
Dino Méndez Age: 62 Gender: M : 1960 Exam Date: 12/30/2022 10:32 Ordering Phys: Xiomara Cardenas MD ([email or web address]) Technologist: Helena Hinojosa [place] [facility] [place]: Exertional shortness of breath BP: 117 / 77 HR: 72 Rhythm: Sinus Technical Quality: Adequate MEASUREMENTS (Male / Female) Normal Values 2D ECHO LV Diastolic Diameter PLAX 3.3 cm 4.2 - 5.9 / 3.9 - 5.3 cm LV Systolic Diameter PLAX 1.7 cm IVS Diastolic Thickness 1.2 cm 0.6 - 1.0 / 0.6 - 0.9 cm IVS Systolic Thickness 2.5 cm LVPW Diastolic Thickness 1.7 cm 0.6 - 1.0 / 0.6 - 0.9 cm LVPW Systolic Thickness 2.5 cm LVOT Diameter 2.1 cm LV Ejection Fraction 2D Teich 80.8 % LV Ejection Fraction MOD 2C 50.5 % LV Ejection Fraction 2C AL 52.8 % LA Diameter 3.2 cm LA Width 2.4 cm LA Height 3.4 cm RA Width 3.8 cm RA Height 3.3 cm Aorta at Sinotubular Diameter 2.9 cm IVC Diameter 1.4 cm M-MODE Aortic Annulus Diameter 3.3 cm LA Ao Ratio MM 0.9 MV E Point Septal Separation 0.6 cm DOPPLER AV Peak Velocity 97.0 cm/s LVOT Peak Velocity 94.0 cm/s AV Area Cont Eq vti 3.4 cm squared AV Area Cont Eq pk 3.3 cm squared MV Peak Velocity 82.0 cm/s MV Area PHT 3.0 cm squared Mitral E to A Ratio 0.8 MV E' Velocity 35.5 cm/s Mitral E to MV E' Ratio 10.2 Mitral E to LV E' Lateral Ratio 8.7 Mitral E to LV E' Septal Ratio 12.6 TR Peak Velocity 68.0 cm/s TR Peak Gradient 1.8 mmHg Right Atrial Pressure 5.0 mmHg Pulmonary Artery Systolic Pressu 6.8 mmHg PV Peak Velocity 77.0 cm/s RV Acceleration Time 0.1 s RV Ejection Time 0.2 s RV AcT/ET 0.4 FINDINGS Left Ventricle Normal left ventricular size, systolic function and wall thickness. Left ventricular ejection fraction is estimated at 55 %. There is hypokinesis of basal to mid inferolateral and basal to mid inferior monteiro Normal diastolic function. Right Ventricle Normal right ventricular size and systolic function. RVSP could not be calculated due to incomplete tricuspid regurgitation velocity profile. Right Atrium Normal right atrial size. Left Atrium Normal left atrial size. Mitral Valve Structurally normal mitral valve. No mitral valve stenosis. No mitral valve regurgitation. Aortic Valve Structurally normal trileaflet aortic valve. No aortic valve stenosis. No aortic valve regurgitation. Tricuspid Valve Structurally normal tricuspid valve. Trace tricuspid valve regurgitation. Pulmonic Valve Pulmonic valve not well visualized. Pericardium No pericardial effusion. Aorta Normal size aortic root and proximal ascending aorta. IVC Normal inferior vena cava. CONCLUSIONS 1. Normal left ventricular size, systolic function and wall thickness. Left ventricular ejection fraction is estimated at 55 %. There is hypokinesis of basal to mid inferolateral and basal to mid inferior monteiro Normal diastolic function. 2. No significant valvular abnormality. 3. Direct comparison to previous study dated 01/30/2018 is not possible. Xiomara Cardenas MD (Electronically Signed) Final Date: 04 January 2023 22:10 S
== END 2022-12-30 10:01 | disposition home or self-care (01) ==
PROVIDERS: PCP Nurse Practitioner Family; Visit Provider Internal Medicine Cardiovascular Disease
DX: R06.02 Shortness of breath (principal)
CPT/HCPCS: 93306

== ENCOUNTER 2022-12-30 12:59 | Oncology outpatient (recurring) (ONCR) | payer OTHER, SELFPAY ==
[2022-12-30 13:04] VITALS: BP 173/82; PULSE 95; RESP 18; TEMP 35.6; O2SAT 92
[2022-12-30 13:26] LABS: Basophils # 0.1 10^3/uL (0.0-0.1); Basophils % 0.9 %; Eosinophils # 0.1 10^3/uL (0.0-0.8); Eosinophils % 1.7 %; Lymphocytes # 1.9 10^3/uL (0.8-4.8); Lymphocytes % 33.7 %; Mean Corpuscular HGB Conc 33.9 g/dL (30-55); Mean Corpuscular Hemoglobin 29.6 pg (27-33); Mean Corpuscular Volume 87.3 fl (82-101); Mean Platelet Volume 9.5 fL (7.4-10.4); Monocytes # 0.4 10^3/uL (0.2-0.9); Monocytes % 7.5 %; Neutrophils # 3.22 10^3/uL (1.8-7.7); Neutrophils % 55.9 %; Nucleated Red Blood Cells % 0 %; Platelet Count 298 10^3/cmm (157-399); Red Blood Count 5.61 10^6/uL (3.85-5.65); Red Cell Distribution Width 13.1 % (12.1-15.1); White Blood Count 5.76 10^3/uL (3.29-11.43)
[2022-12-30 17:16] LABS: Lactate Dehydrogenase 161 U/L (135-225)
[2023-01-01 14:20] LABS: Erythropoietin 16.9 mIU/mL (2.6-18.5)
[2023-01-07 14:34] LABS: CALR Exon 9 Mutation NOT DETECTED (NOT DETECTED); CSF3R Exon 14/17 Mutation NOT DETECTED (NOT DETECTED); JAK2 Exon 12 Mutation NOT DETECTED (NOT DETECTED); JAK2 V617 Block Specimen ID NG; JAK2 V617 Clinical Indication NG; JAK2 V617 Mutation NOT DETECTED (NOT DETECTED); JAK2 V617 Specimen Source NG; MPL Exon 12 Mutation NOT DETECTED (NOT DETECTED)
== END 2023-01-18 23:59 | disposition home or self-care (01) ==
PROVIDERS: Nurse Practitioner Family; PCP Nurse Practitioner Family; Visit Provider Internal Medicine Medical Oncology
DX: D45 Polycythemia vera (principal); Z53.9 Procedure and treatment not carried out, unspecified reason
CPT/HCPCS: 36415; 81270; 81279; 81339; 81479; 82668; 83615; 85025

== ENCOUNTER → 2022-12-31 14:36 | Outpatient (BNVA) | payer OTHER, SELFPAY | PROVIDERS: PCP Nurse Practitioner Family; Referring Provider Nurse Practitioner Family; Visit Provider Internal Medicine Pulmonary Disease | DX: J30.2 Other seasonal allergic rhinitis (principal); G47.00 Insomnia, unspecified; R06.02 Shortness of breath | CPT/HCPCS: 36415; 82785; 86003 ==

== ENCOUNTER 2023-01-15 08:58 | Outpatient (CLI) | payer OTHER, SELFPAY ==
[2023-01-15 10:08] VITALS: BP 150/91; BP 181/100
== END 2023-01-15 08:59 | disposition home or self-care (01) ==
PROVIDERS: PCP Nurse Practitioner Family; Visit Provider Internal Medicine Pulmonary Disease
DX: R06.02 Shortness of breath (principal)
CPT/HCPCS: 94010; 94618; 94726; 94729

== ENCOUNTER 2023-01-28 13:57 | Oncology outpatient (recurring) (ONCR) | payer OTHER, SELFPAY ==
[2023-01-28 14:16] VITALS: BP 127/78; PULSE 90; TEMP 36.8; O2SAT 96
[2023-01-28 14:25] LABS: Basophils # 0.1 10^3/uL (0.0-0.1); Eosinophils # 0.1 10^3/uL (0.0-0.8); Eosinophils % 2.1 %; Hematocrit 53.6 % (37-53); Lymphocytes # 2.4 10^3/uL (0.8-4.8); Lymphocytes % 37.8 %; Mean Corpuscular HGB Conc 33.2 g/dL (30-55); Mean Corpuscular Hemoglobin 29.6 pg (27-33); Mean Corpuscular Volume 89.2 fl (82-101); Mean Platelet Volume 9.4 fL (7.4-10.4); Monocytes # 0.5 10^3/uL (0.2-0.9); Monocytes % 8.7 %; Neutrophils # 3.13 10^3/uL (1.8-7.7); Neutrophils % 50.1 %; Nucleated Red Blood Cells % 0 %; Platelet Count 300 10^3/cmm (157-399); Red Blood Count 6.01 10^6/uL (3.85-5.65); White Blood Count 6.24 10^3/uL (3.29-11.43)
== END 2023-02-18 23:59 | disposition home or self-care (01) ==
PROVIDERS: Nurse Practitioner Family; PCP Nurse Practitioner Family; Visit Provider Internal Medicine Medical Oncology
DX: D45 Polycythemia vera (principal)
CPT/HCPCS: 36415; 85025

== ENCOUNTER → 2023-01-30 12:02 | Outpatient (BNVA) | payer OTHER, SELFPAY | PROVIDERS: PCP Nurse Practitioner Family; Visit Provider Family Medicine | DX: G47.00 Insomnia, unspecified (principal); E78.2 Mixed hyperlipidemia; I10 Essential (primary) hypertension; E11.65 Type 2 diabetes mellitus with hyperglycemia; F51.01 Primary insomnia | CPT/HCPCS: 80053; 80061; 83036; 84443; 85025 ==

== ENCOUNTER 2023-02-19 20:00 | Outpatient (CLI) | payer OTHER, SELFPAY | END 2023-02-19 20:01 | disposition home or self-care (01) | LOC: SLEEP 02-20 06:23 | PROVIDERS: PCP Nurse Practitioner Family; Visit Provider Internal Medicine Pulmonary Disease | DX: G47.00 Insomnia, unspecified (principal); G47.33 Obstructive sleep apnea (adult) (pediatric); G47.36 Sleep related hypoventilation in conditions classified elsewhere | CPT/HCPCS: 95810 ==

== ENCOUNTER 2023-04-09 05:33 | Observation (INO) | payer OTHER, SELFPAY ==
[2023-04-09] VITALS (15 sets, daily range): BP systolic 107–178; BP diastolic 70–101; PULSE 67–100; RESP 14–19; TEMP 36.3–36.8; O2SAT 88–96; BMI 43.5
[2023-04-09 05:56] LABS: Basophils # 0.1 10^3/uL (0.0-0.1); Basophils % 1.2 %; Eosinophils # 0.2 10^3/uL (0.0-0.8); Eosinophils % 3.3 %; Hematocrit 55.3 % (37-53); Lymphocytes # 2.2 10^3/uL (0.8-4.8); Lymphocytes % 42.1 %; Mean Corpuscular HGB Conc 32.5 g/dL (30-55); Mean Corpuscular Hemoglobin 28.4 pg (27-33); Mean Corpuscular Volume 87.2 fl (82-101); Mean Platelet Volume 9.3 fL (7.4-10.4); Monocytes # 0.4 10^3/uL (0.2-0.9); Monocytes % 8.6 %; Neutrophils # 2.29 10^3/uL (1.8-7.7); Neutrophils % 44.6 %; Nucleated Red Blood Cells % 0 %; Platelet Count 260 10^3/cmm (157-399); Red Blood Count 6.34 10^6/uL (3.85-5.65); Red Cell Distribution Width 13.3 % (12.1-15.1); White Blood Count 5.13 10^3/uL (3.29-11.43)
--- NOTE | 2023-04-09 05:57 | ED_ITS ---
HPI - Abdominal Pain 2 General: Chief Complaint: Abdominal Pain Stated Complaint: lower righ abd pain, lower side/back pain Time Seen by Provider: 04/09/23 05:41 Source: patient Mode of arrival: ambulatory History of Present Illness: 62-year-old male presents emergency room complaining of abdominal pain for the last 5 days. Localizes pain to the left side. (Nurses triage note states its right flank and right lower quadrant however 1 patient indicates to me the area of pain he refers to the left). patient has had vague abdominal pain for about 5 days states he has mild relief with bowel movements although he still had very small bowel movements in the morning daily feels like he has not really completely evacuating his bowel. He denies any dysuria urgency or frequency denies any hematuria no fever sweats or chills has not noticed anything else that exacerbates or relieves. MD elicited complaint: abdominal pain Onset (ago): day(s) (5) Location: LLQ and L flank Severity: mild Quality: cramping Exacerbating factors: nothing Relieving factors: other Associated Symptoms: Reports constipation and GI cramping; Denies anorexia, belching, bloating, change in bowel habits, change in stool character, chills, coffee ground emesis, diarrhea, dyspepsia, dysuria, excessive flatus, fever(s), heartburn, hematochezia, hematuria, hematemesis, fecal incontinence, loose stools, melena, nausea, poor appetite, syncope and vomiting Review of Systems 2 Const: Denies: fever(s) or chills Card: Denies: chest pain or syncope Resp: Denies: dyspnea GI: Reports: constipation and GI cramping; Denies: abdominal pain, nausea, vomiting, hematemesis, coffee ground emesis, heartburn, diarrhea, bloating, belching, excessive flatus, fecal incontinence, change in bowel habits, change in stool character, hematochezia or melena : Denies: dysuria, urinary frequency, urinary urgency or hematuria Musc: Denies: neck pain or back pain Skin/Breast: Denies: rash PFSH ED 2 PFSH: Medical History Secondary polycythemia Greater trochanteric bursitis of left hip Obesity CAD (coronary artery disease) Lumbar disc disease with radiculopathy 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 Post laminectomy syndrome Acute bilateral low back pain with left-sided sciatica Insomnia Mixed hyperlipidemia Anxiety and depression Essential (primary) hypertension Uncontrolled diabetes mellitus with hyperglycemia Surgical History History of umbilical hernia 2017 History of lumbar surgery Left L4-L5 hemilaminotomy/foraminotomy; 01/30/2018; [facility] [place] Family History Mother Diabetes Heart disease Denies family history of Bleeding disorder Social History Smoking and tobacco/nicotine status: former use of tobacco/nicotine Quit status (tobacco/nicotine): has quit using Year quit tobacco: 2009 Former quit date comment: 2ppd X 40 years Second hand smoke exposure: No Alcohol intake: never Substance/Drug Use: never Adopted: No Caregiver/support person: No Lives independently: Yes Household members: spouse Housing: House Marital status: Current occupational status: unemployed Do you think of yourself as: Straight/Heterosexual Current gender identity: Male Physical Exam 2 Const: COMMON NORMALS: no acute distress GENERAL APPEARANCE: cooperative and comfortable ORIENTATION/CONSCIOUSNESS: Yes awake, Yes oriented to person, Yes oriented to place and Yes oriented to time HENMT: COMMON NORMALS: normocephalic, atraumatic and hearing grossly normal bilaterally HEAD & SCALP: normocephalic and atraumatic Resp: COMMON NORMALS: normal respiratory effort, No retractions, No use of accessory muscles and clear to auscultation bilaterally AUSCULTATION: clear to auscultation bilaterally Cardio: COMMON NORMALS: regular rate, regular rhythm and No murmurs present (Cardio) RATE: regular rate RHYTHM: regular rhythm GI: COMMON NORMALS: Soft to palpation and No hepatosplenomegaly present A USCULTATION: Yes normoactive bowel sounds PALPATION: Yes Soft to palpation, No Tenderness to palpation present (GI), No Guarding due to palpation present (GI) and Yes No hepatosplenomegaly present Extremity: COMMON NORMALS: normal to inspection, capillary refill normal, no clubbing, cyanosis or edema, no calf tenderness and no pedal edema Neuro: SENSORIUM/ORIENTATION: Yes oriented to person, Yes oriented to place and Yes oriented to time Skin: COMMON NORMALS: no rashes or lesions noted GENERAL SKIN EXAM: no rashes or lesions noted Course 2 Vital Signs: Vital signs: Vital Signs Temperature 97.4 F L 04/09/23 05:38 Pulse Rate 72 04/09/23 07:52 Respiratory Rate 19 H 04/09/23 07:52 Blood Pressure 178/101 04/09/23 07:52 Pulse Oximetry 95 04/09/23 07:52 Oxygen Delivery Me thod Nasal Cannula 04/09/23 07:52 Oxygen Flow Rate 1 04/09/23 07:52 MDM - Abdominal Pain Medical Decision Making Mild elevation in his lipase but his CT does not show any peripancreatic inflammation. He is hypoxic when he is off his oxygen normally he is not on oxygen during the day he is on CPAP. He has a history of polycythemia vera which is thought to be secondary according to Dr. Pruett's previous evaluation. He has known coronary artery disease previous stress test done in November of this year showed some colby-infarct ischemia that is being treated medically according to Dr. Brandon's note it was not amenable to any kind of intervention. He is not having any chest pain at this time. He does have a history of some asthma with an FEV1 of 6 7% per Dr. Brandon's notes. Will place patient on observation keep n.p.o. Fluids discussed Dr. Kaplan he wants to evaluate the patient. Chest x-ray was normal patient has no history of DVT or PE May need CTA to further evaluate this may be chronic and previously undiagnosed he does not have any chest pain at this time is nonproductive and tachycardic relatively low index suspicion at this point for PE. Medical Records I reviewed the patient's medical records. Lab Data I reviewed the patient's lab results. 04/09/23 05:50 04/09/23 05:50 Labs/Radiology: Radiology Impressions Chest/Abdomen X-ray 04/09/23 06:27 IMPRESSION: No acute findings. Abdomen/Pelvis CT 04/09/23 06:31 IMPRESSION: No acute subdiaphragmatic pathology. Laboratory Results WBC 5.13 10^3/uL (3.29-11.43) 04/09/23 05:50 RBC 6.34 10^6/uL (3.85-5.65) H 04/09/23 05:50 Hgb 18.00 g/dL (11.27-16.99) H 04/09/23 05:50 Hct 55.3 % (37-53) H 04/09/23 05:50 MCV 87.2 fl (82-101) 04/09/23 05:50 MCH 28.4 pg (27-33) 04/09/23 05:50 MCHC 32.5 g/dL (30-55) 04/09/23 05:50 RDW 13.3 % (12.1-15.1) 04/09/23 05:50 Plt Count 260 10^3/cmm (157-399) 04/09/23 05:50 MPV 9.3 fL (7.4-10.4) 04/09/23 05:50 Neut % (Auto) 44.6 % 04/09/23 05:50 Lymph % (Auto) 42.1 % 04/09/23 05:50 Butler % (Auto) 8.6 % 04/09/23 05:50 Eos % (Auto) 3.3 % 04/09/23 05:50 Baso % (Auto) 1.2 % 04/09/23 05:50 Neut # (Auto) 2.29 10^3/uL (1.8-7.7) 04/09/23 05:50 Lymph # (Auto) 2.2 10^3/uL (0.8-4.8) 04/09/23 05:50 Butler # (Auto) 0.4 10^3/uL (0.2-0.9) 04/09/23 05:50 Eos # (Auto) 0.2 10^3/uL (0.0-0.8) 04/09/23 05:50 Baso # (Auto) 0.1 10^3/uL (0.0-0.1) 04/09/23 05:50 Nucleated RBC % (auto) 0 % 04/09/23 05:50 Nucleated RBCs # 0.0 /100WBC 04/09/23 05:50 Sodium 138 mmol/L (136-145) 04/09/23 05:50 Potassium 4.0 mmol/L (3.5-5.1) 04/09/23 05:50 Chloride 101 mmol/L (98-107) 04/09/23 05:50 Carbon Dioxide 26 mmol/L (22-29) 04/09/23 05:50 Anion Gap 15.0 (5-19) 04/09/23 05:50 BUN 7 mg/dL (8-23) L 04/09/23 05:50 Creatinine 0.7 mg/dL (0.7-1.2) 04/09/23 05:50 GFR Calculation 113.5 mL/min (90-130) 04/09/23 05:50 Glucose 180 mg/dL (65-115) H 04/09/23 05:50 Calculated Osmolality 289 mOsm/kg (285-295) 04/09/23 05:50 Lactic Acid 2.6 mmol/L (0.5-2.2) H 04/09/23 05:50 Calcium 9.6 mg/dL (8.5-10.5) 04/09/23 05:50 Total Bilirubin 0.4 mg/dL (0.15-1.2) 04/09/23 05:50 AST 25 U/L (0-40) 04/09/23 05:50 ALT 35 U/L (0-41) 04/09/23 05:50 Alkaline Phosphatase 62 U/L (40-130) 04/09/23 05:50 Total Protein 7.5 g/dL (6.6-8.7) 04/09/23 05:50 Albumin 4.1 g/dL (3.5-5.2) 04/09/23 05:50 Globulin 3.4 g/dL (1.3-4.6) 04/09/23 05:50 Triglycerides 130 mg/dL (0-150) 04/09/23 05:50 Lipase 259 U/L (13-60) H 04/09/23 05:50 Urine Color Yellow (Yellow) 04/09/23 05:58 Urine Appearance Clear (CLEAR) 04/09/23 05:58 Urine pH 5 (5-7) 04/09/23 05:58 Ur Specific Purdys 1.020 (1.005-1.030) 04/09/23 05:58 Urine Protein Neg (Negative) 04/09/23 05:58 Urine Glucose (UA) 4+ (Normal) H 04/09/23 05:58 Urine Ketones Negative (Negative) 04/09/23 05:58 Urine Blood Neg (Negative) 04/09/23 05:58 Urine Nitrate Negative (Negative) 04/09/23 05:58 Urine Bilirubin Neg (Negative) 04/09/23 05:58 Urine Urobilinogen Neg mg/dL (Negative) 04/09/23 05:58 Ur Leukocyte Esterase Negative (Negative) 04/09/23 05:58 All radiology interpretation(s) finalized by discharge Discharge Plan Discharge Patient Disposition: Placed in Observation Clinical Impression: Pancreatitis, Uncontrolled diabetes mellitus with hyperglycemia, CAD (coronary artery disease), Secondary polycythemia, CHANTE (obstructive sleep apnea), Hypoxia Condition: Stable Prescriptions: No Action aspirin 81 mg tablet,delayed release (DR/EC) 81 mg PO QAM albuterol sulfate [Ventolin HFA] 90 mcg/actuation HFA aerosol inhaler 2 puff inhalation Q6H PRN (Reason: shortness of breath or wheezing) Qty: 8.5 0RF lisinopril 10 mg tablet 10 mg PO DAILY Qty: 90 3RF Hold Instructions: hypotension isosorbide mononitrate 30 mg tablet extended release 24 hr 30 mg PO BID Qty: 90 3RF ezetimibe 10 mg tablet 10 mg PO DAILY Qty: 90 3RF budesonide-formoterol [Symbicort] 80-4.5 mcg/actuation HFA aerosol inhaler 2 puff inhalation BID Qty: 10.2 6RF Trulicity 4.5 mg/0.5 mL pen injector See Rx Instructions .ROUTE .COMPLEX Qty: 2 2RF Dose Instruction: INJECT 0.5ML (=4.5 MG) SUBCUTANEOUSLY ONCE WEEKLY (EVERY 7 DAYS) Rx Instructions: INJECT 0.5ML (=4.5 MG) SUBCUTANEOUSLY ONCE WEEKLY (EVERY 7 DAYS) ON FRIDAY insulin glargine [Basaglar KwikPen U-100 Insulin] 100 unit/mL (3 mL) insulin pen 10 unit SUBCUT DAILY Qty: 15 2RF clopidogrel 75 mg tablet 75 mg PO QAM Qty: 90 3RF Hold Instructions: Resume on 06/01/22. (DME) pen needle, diabetic 32 gauge x 1/4 needle See Rx Instructions .Route Qty: 100 12RF Rx Instructions: DAILY nitroglycerin 0.4 mg tablet, sublingual 0.4 mg SUBLINGUAL Q5M PRN (Reason: chest pain) Qty: 25 3RF Rx Instructions: do not exceed 3 doses per episode glipizide 5 mg tablet extended release 24hr 5 mg PO BID zolpidem 10 mg tablet 10 mg PO BEDTIME Jardiance 25 mg tablet 25 mg PO QAM Referrals: Birgit Álvarez FNP [Primary Care Provider] - Patient Instructions: Opioid Safety, Pain Management Coding Level of Care Code ED Representative for Katie Burt
[2023-04-09 06:00] LABS: Add Urine Microscopic? NO; Charge for UA Resulting for Rev
[2023-04-09] MEDS: ondansetron 2 mg/ML SDV 2 mL 4 MG IVP (06:06)
[2023-04-09] MEDS: sodium chloride 0.9% 1,000 ML 999 ML IV (06:06)
[2023-04-09 06:07] LABS: Bilirubin Urine Neg (Negative); Blood Urine Neg (Negative); Glucose Urine UA 4+ (Normal); Ketones Urine Negative (Negative); Leukocyte Esterase Urine Negative (Negative); Nitrate Urine Negative (Negative); Protein Urine Neg (Negative); Urine Appearance Clear (CLEAR); Urine Color Yellow (Yellow); Urobilinogen Urine Neg (Negative); pH Urine 5 (5-7)
--- NOTE | 2023-04-09 06:09 | ECG_ITS ---
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 Measurements Intervals [place] Rate: 73 P: 50 MI: 212 QRS: -50 QRSD: 134 T: 56 QT: 389 QTc: 430 Interpretive Statements SINUS RHYTHM WITH FIRST DEGREE AV BLOCK RIGHT BUNDLE BRANCH BLOCK [120+ ms QRS DURATION, UPRIGHT V1, 40+ ms S IN I/aVL/V4/V5/V6] LEFT ANTERIOR FASCICULAR BLOCK [QRS AXIS <= -45, QR IN I, RS IN II] Compared to ECG 10/23/2022 11:59:21 First degree AV block now present Left anterior fascicular block now present Right-axis deviation no longer present Electronically Signed On 04-09-2023 11:05:26 PAPER GLUING OPERATOR by Xiomara Cardenas M.D. [id number]
[2023-04-09 06:17] LABS: Alanine Aminotransferase 35 U/L (0-41); Albumin Level 4.1 g/dL (3.5-5.2); Alkaline Phosphatase 62 U/L (40-130); Aspartate Amino Transferase 25 U/L (0-40); Blood Urea Nitrogen 7 mg/dL (8-23); Calcium 9.6 mg/dL (8.5-10.5); Carbon Dioxide 26 mmol/L (22-29); Chloride 101 mmol/L (98-107); Globulin 3.4 g/dL (1.3-4.6); Glomerular Filtration Rate 113.5 mL/min (90-130); Glucose 180 mg/dL (65-115); Lipase 259 U/L (13-60); Osmolality Calculated 289 mOsm/kg (285-295); Sodium 138 mmol/L (136-145); Total Bilirubin 0.4 mg/dL (0.15-1.2); Total Protein 7.5 g/dL (6.6-8.7)
--- NOTE | 2023-04-09 06:27 | XRR_ITS ---
PROCEDURE INFORMATION: Exam: XR Abdomen Exam date and time: 04/09/2023 6:32 AM Age: 62 years old Clinical indication: Abdominal pain; Localized; Prior surgery; Surgery date: 6+ months; Surgery type: Umbilical hernia. Lumbar laminectomy; Patient HX: C/O left sided abd pain x 5 days TECHNIQUE: Imaging protocol: Radiologic exam of the abdomen. Views: 2 Views. Upright and supine views. COMPARISON: CR XR hip LT 2-3V wo/w pel* [id number] 12/10/2022 11:11 AM FINDINGS: Gastrointestinal tract: Normal. No bowel dilation. Intraperitoneal space: Normal. No free air. Bones/joints: Unremarkable for age. XR/XR acute abdomen series [id number] IMPRESSION: No acute findings.
--- NOTE | 2023-04-09 06:31 | CTR_ITS ---
PROCEDURE INFORMATION: Exam: CT Abdomen And Pelvis Without Contrast Exam date and time: 04/09/2023 6:47 AM Age: 62 years old Clinical indication: Abdominal pain; Localized; Prior surgery; Surgery date: 6+ months; Surgery type: Umbilical hernia. Lumbar laminectomy; Patient HX: C/O left sided abd pain x 5 days TECHNIQUE: Imaging protocol: Computed tomography of the abdomen and pelvis without contrast. Radiation optimization: All CT scans at this facility use at least one of these dose optimization techniques: automated exposure control; mA and/or kV adjustment per patient size (includes targeted exams where dose is matched to clinical indication); or iterative reconstruction. REPORTING DATA: Count of CT and Cardiac NM exams in prior 12 months: This patient has received 2 known CTs and 0 known cardiac nuclear medicine studies in the 12 months prior to the current study. COMPARISON: CR (ABDOMEN, ) 04/09/2023 6:32 AM RADIATION DOSE METRICS: Total DLP (mGy-cm): 1549.37 FINDINGS: Liver: Hepatic steatosis. 23 cm hepatomegaly. Gallbladder and bile ducts: Normal. No calcified stones. No ductal dilation. Pancreas: Normal. No ductal dilation. Spleen: Normal. No splenomegaly. Adrenal glands: Normal. No mass. Kidneys and ureters: Normal. No hydronephrosis. Stomach and bowel: Mild diverticulosis without evidence of diverticulitis. Appendix: No evidence of appendicitis. Intraperitoneal space: Unremarkable. No free air. No significant fluid collection. Vasculature: Extensive atherosclerotic calcifications of the aorta. Lymph nodes: Unremarkable. No enlarged lymph nodes. Urinary bladder: Unremarkable as visualized. Reproductive: Unremarkable as visualized. Bones/joints: Unremarkable. No acute fracture. Soft tissues: Small umbilical hernia containing only fat. CT/CT abdomen pelvis con [id number] IMPRESSION: No acute subdiaphragmatic pathology.
[2023-04-09 06:51] LABS: Lactic Sepsis W/Reflex 2.6 mmol/L (0.5-2.2); Triglycerides 130 mg/dL (0-150)
--- NOTE | 2023-04-09 07:05 | PC.NURSE ---
Report received from NADINE Rothman at this time. Lorna reported the patient was here for left flank pain. She stated blood had been drawn, urine had been sent to lab, fluids going, and patient placed on 1 L nc.
--- NOTE | 2023-04-09 07:14 | PC.NURSE ---
Rounded on patient. Patient was setting in bed. Patient reports no pain at this time. Patient recently came back from CT at this time patients fluids was disconnected. This RN reconnected the patients fluid. Patient was comfortable. Patient did not need to go to the restroom. Call light given to patient. Patient updated that we was waiting for his lab work and CT results to come back.
[2023-04-09 08:26] LABS: Reflex Lactate Order REFLEX LACTIC ORDERD
--- NOTE | 2023-04-09 08:51 | P.HP_ITS ---
Documented by User: Tavo Hydesanta 04/09/23 09:50 Providers/Chief Complaint 2 Admitting Physician: Sergio Kaplan MD Primary Care Provider: NICK Rodrigues Chief Complaint: lower righ abd pain, lower side/back pain History of Present Illness Patient is a 62-year-old male with a past medical history of CAD, chronic back pain, hyperlipidemia, hypertension, DM 2, CHANTE who presents the emergency room with abdominal pain. Patient will be admitted to the hospital for further medical management of constipation. Patient reports that he is started having abdominal pain approximately 5 days ago. He reports that the pain is located on the LUQ and LLQ. Some older ecchymosis noted to left abdomen area. States 2 days ago that he felt the abdominal pain started to radiate to his left backside, upper and lower. He reports I feel like I am not emptying my bowels and it feels like my belly is not moving like normal, feels like it is moving slow. States that he does have some mild relief with bowel movements, though not emptying. States that he is having some cramping and bloating for the past 5 days as well. He denies any nausea, vomiting, chest discomfort, swelling, fever, chills, diarrhea. States that his stool is hard and formed. Also denies passing gas, bloody stool or bloody sputum. He does report some shortness of breath which is chronic in nature. Reports that he did just recently have a sleep study performed and is waiting on CPAP machine to arrive as they are on backorder per patient. Patient also stated that had a recent diagnosis of hepatitis C as patient is concerned that he might have contracted this and questioned whether or not this was due to current abdominal illness. While in the emergency room, laboratory and radiology studies were performed. Patient received 1 L NS bolus and Zofran 4 mg x 1 for nausea. Review of Systems 2 Narrative: Comprehensive 10 point ROS is negative except for the corresponding HPI above. GI: Reports: abdominal pain, constipation, bloating and GI cramping; Denies: nausea, vomiting or hematemesis Medications/Allergies Home Medications Medication Instructions Recorded Confirmed Last Taken Type aspirin 81 mg tablet,delayed 81 mg PO QAM 05/31/19 04/09/23 04/08/23 History release albuterol sulfate 90 mcg/actuation 2 puff inhalation Q6H PRN 10/28/22 04/09/23 Unknown Rx aerosol inhaler (Ventolin HFA) shortness of breath or wheezing #8.5 grams budesonide-formoterol HFA 80 2 puff inhalation BID #10.2 grams 01/06/23 04/09/23 04/08/23 Rx mcg-4.5 mcg/actuation aerosol inhaler (Symbicort) dulaglutide 4.5 mg/0.5 mL See Rx Instructions .Route 01/22/23 04/09/23 04/06/23 Rx subcutaneous pen injector .COMPLEX #2 mL (Trulicity) ezetimibe 10 mg tablet 10 mg PO DAILY #90 tabs 01/30/23 04/09/23 04/08/23 Rx isosorbide mononitrate 30 mg 30 mg PO BID #90 tabs 01/30/23 04/09/23 04/08/23 Rx tablet,extended release 24 hr lisinopril 10 mg tablet 10 mg PO DAILY #90 tabs 01/30/23 04/09/23 04/08/23 Rx clopidogrel 75 mg tablet 75 mg PO QAM #90 tabs 02/11/23 04/09/23 04/08/23 Rx insulin glargine 100 unit/mL (3 10 unit (0.1 mL) SUBCUT DAILY #15 02/11/23 04/09/23 04/08/23 Rx mL) subcutaneous pen (Basaglar mL KwikPen U-100 Insulin) pen needle, diabetic 32 gauge x #100 ea 02/24/23 04/09/23 Unknown Rx 1/4 nitroglycerin 0.4 mg sublingual 0.4 mg sublingual Q5M PRN chest 03/10/23 04/09/23 Unknown Rx tablet pain #25 tabs empagliflozin 25 mg tablet 25 mg PO QAM 04/09/23 04/09/23 04/08/23 History (Jardiance) glipizide 5 mg tablet, extended 5 mg PO BID 04/09/23 04/09/23 04/08/23 History release 24 hr zolpidem 10 mg tablet 10 mg PO BEDTIME 04/09/23 04/09/23 04/08/23 History Allergies Allergy/AdvReac Type Severity Reaction Status Date / Time cat dander Allergy Mild ALGY-Conges Verified 04/09/23 07:40 jm dog dander Allergy Mild ALGY-Conges Verified 04/09/23 07:40 jm house dust Allergy Mild ALGY-Conges Verified 04/09/23 07:40 jm Penicillins Allergy Unknown swelling Verified 04/09/23 07:40 pravastatin Allergy Unknown leg cramps Verified 04/09/23 07:40 atorvastatin [From Lipitor] AdvReac muscle Verified 04/09/23 07:40 cramps PFSH Acute 2 PFSH: Medical History Secondary polycythemia Greater trochanteric bursitis of left hip Obesity CAD (coronary artery disease) Lumbar disc disease with radiculopathy 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 Post laminectomy syndrome Acute bilateral low back pain with left-sided sciatica Insomnia Mixed hyperlipidemia Anxiety and depression Essential (primary) hypertension Uncontrolled diabetes mellitus with hyperglycemia Surgical History History of umbilical hernia 2017 History of lumbar surgery Left L4-L5 hemilaminotomy[place]aminotomy[place] [facility] [place] History Mother Diabetes Heart disease Denies family history of Bleeding disorder Social History Smoking and tobacco/nicotine status: former use of tobacco/nicotine Quit status (tobacco/nicotine): has quit using Year quit tobacco: 2009 Former quit date comment: 2ppd X 40 years Second hand smoke exposure: No Alcohol intake: never Substance/Drug Use: never Adopted: No Caregiver/support person: No Lives independently: Yes Household members: spouse Housing: House Marital status: Current occupational status: unemployed Do you think of yourself as: Straight/Heterosexual Current gender identity: Male Vitals/I&O/Wt Last Vital Signs Temp 97.4 F L 04/09/23 05:38 Pulse 72 04/09/23 07:52 Resp 19 H 04/09/23 07:52 BP 178/101 04/09/23 07:52 Pulse Ox 95 04/09/23 07:52 O2 Del Method Nasal Cannula 04/09/23 07:52 O2 Flow Rate 1 04/09/23 07:52 04/08/23 04/09/23 04/09/23 22:59 06:59 14:59 Intake Total 1000 / 1000 Balance 1000 / 1000 Weight last 48 hrs Weight 133.81 kg Physical Exam 2 Narrative: General: Alert, able to answer questions appropriately, pleasant HEENT: Dry mucous membranes, Neck: Supple Lymph: No lymphadenopathy noted Chest: Normal to inspection, even chest rise Respiratory: Nasal flaring, mild SOB, slight prolonged expiratory phase, clear lungs per auscultation Cardio: RRR, pulses 2+ radial and dorsalis pedis. GI: Hypoactive bowel sounds in all 4 quadrants. Obese, tender on palpation to left upper and lower quadrant. : Deferred Back: Chronic pain in nature Skin: Ecchymosis noted to Left Abdomen. Data 04/09/23 05:50 04/09/23 05:50 Other Labs: Glucose 180, lactic acid 2.6 lipase 259, urine glucose 4+ CXR: My impression: No infiltrates seen. No pneumothorax. Gastric bubble present. Radiologist's impression: No acute findings CT Abd/Pel: Radiologist's impression: No acute subdiaphragmatic pathology. A&P Assessment and plan (1) Constipation: Radiology imaging CT abdomen pelvis unremarkable. Though some stool noted in transverse and descending colon. Fleets enema Docusate/Senna PO (2) Hypoxia: Seems chronic in nature. Currently on 1L/NC at 95 to 96% SpO2. Nursing staff to remove oxygen and reevaluate patient. Maintain SpO2 of >90%. (3) CAD (coronary artery disease): Stable at this time. No complaint of chest discomfort at this time. Slight SOB which appears to be chronic in nature for the past couple of years. Last stress test was performed on 12/06/2022 which revealed no significant EKG changes, chest pain, arrhythmias, or abnormalities in blood pressure or heart rate. Recent echocardiogram performed on 12/30/2022 revealed ejection fraction estimated at 55% with hypokinesis of basal to mid inferior lateral and basal to mid inferior monteiro with normal diastolic function. Did note some trace tricuspid valve regurgitation. We will continue his aspirin, Plavix, isosorbide mononitrate, and Zetia. Qualifiers: Associated angina: without angina Coronary Disease-Associated Artery/Lesion type: elim ira artery [place] vs. transplanted heart: elim ira heart Qualified Code(s): I25.10 - Atherosclerotic heart disease of elim ira coronary artery without angina pectoris (4) Essential (primary) hypertension: Stable at this time. Will continue his lisinopril (5) Uncontrolled diabetes mellitus with hyperglycemia: Seems somewhat noncompliant with diet though reports that he is compliant with his insulin and p.o. diabetic medication. Recent hemoglobin A1c performed in which revealed 8.0. Glucose level in emergency room was 180. Patient is currently receiving Lantus 10 units daily, glipizide 5 mg twice daily, Jardiance 25 mg p.o. daily, Trulicity. Qualifiers: Diabetes mellitus type: type 2 Qualified Code(s): E11.65 - Type 2 diabetes mellitus with hyperglycemia Plan Plan as stated above. Radiology imaging was unremarkable though some stool noted on transverse and descending large intestine. Seems to be most likely consistent with constipation. We will perform fleets enema for patient as well as oral constipation medication. CODE STATUS: Full code. In the event patient is unable to answer questions for his self, Sun , will answer questions for the patient. Coding Level of Care Code 63602 Diagnoses Constipation K59.00 Hypoxia R09.02 Coronary artery disease involving elim ira coronary artery of elim ira heart without angina pectoris I25.10 Associated angina: without angina Coronary Disease-Associated Artery/Lesion type: elim ira artery [place] vs. transplanted heart: elim ira heart Essential (primary) hypertension I10 Uncontrolled type 2 diabetes mellitus with hyperglycemia E11.65 Diabetes mellitus type: type 2 Time Spent (min) 36 Documented by User: Sergio Kaplan MD 04/09/23 12:36 Providers/Chief Complaint 2 Chief Complaint: lower righ abd pain, lower side/back pain History of Present Illness Patient is a 62-year-old male with a past medical history of CAD, chronic back pain, hyperlipidemia, hypertension, DM 2, CHANTE who presents the emergency room with abdominal pain. Patient will be admitted to the hospital for further medical management of constipation. Patient reports that he is started having abdominal pain approximately 5 days ago. He reports that the pain is located on the LUQ and LLQ. Some older ecchymosis noted to left abdomen area. States 2 days ago that he felt the abdominal pain started to radiate to his left backside, upper and lower. He reports I feel like I am not emptying my bowels and it feels like my belly is not moving like normal, feels like it is moving slow. States that he does have some mild relief with bowel movements, though not emptying. States that he is having some cramping and bloating for the past 5 days as well. He denies any nausea, vomiting, chest discomfort, swelling, fever, chills, diarrhea. States that his stool is hard and formed. Also denies passing gas, bloody stool or bloody sputum. He does report some shortness of breath which is chronic in nature. Reports that he did just recently have a sleep study performed and is waiting on CPAP machine to arrive as they are on backorder per patient. Patient also stated that had a recent diagnosis of hepatitis C as patient is concerned that he might have contracted this and questioned whether or not this was due to current abdominal illness. He denies any chest pain. He reports no pleuritic pain, and no change in the abdominal pain with breathing deep. While in the emergency room, laboratory and radiology studies were performed. Patient received 1 L NS bolus and Zofran 4 mg x 1 for nausea. Review of Systems 2 Card: Denies: chest pain Resp: Reports: dyspnea Medications/Allergies Home Medications Medication Instructions Recorded Confirmed Last Taken Type aspirin 81 mg tablet,delayed 81 mg PO QAM 05/31/19 04/09/23 04/08/23 History release albuterol sulfate 90 mcg/actuation 2 puff inhalation Q6H PRN 10/28/22 04/09/23 Unknown Rx aerosol inhaler (Ventolin HFA) shortness of breath or wheezing #8.5 grams budesonide-formoterol HFA 80 2 puff inhalation BID #10.2 grams 01/06/23 04/09/23 04/08/23 Rx mcg-4.5 mcg/actuation aerosol inhaler (Symbicort) dulaglutide 4.5 mg/0.5 mL See Rx Instructions .Route 01/22/23 04/09/23 04/06/23 Rx subcutaneous pen injector .COMPLEX #2 mL (Trulicity) ezetimibe 10 mg tablet 10 mg PO DAILY #90 tabs 01/30/23 04/09/23 04/08/23 Rx isosorbide mononitrate 30 mg 30 mg PO BID #90 tabs 01/30/23 04/09/23 04/08/23 Rx tablet,extended release 24 hr lisinopril 10 mg tablet 10 mg PO DAILY #90 tabs 01/30/23 04/09/23 04/08/23 Rx clopidogrel 75 mg tablet 75 mg PO QAM #90 tabs 02/11/23 04/09/23 04/08/23 Rx insulin glargine 100 unit/mL (3 10 unit (0.1 mL) SUBCUT DAILY #15 02/11/23 04/09/23 04/08/23 Rx mL) subcutaneous pen (Basaglar mL KwikPen U-100 Insulin) pen needle, diabetic 32 gauge x #100 ea 02/24/23 04/09/23 Unknown Rx 1/4 nitroglycerin 0.4 mg sublingual 0.4 mg sublingual Q5M PRN chest 03/10/23 04/09/23 Unknown Rx tablet pain #25 tabs empagliflozin 25 mg tablet 25 mg PO QAM 04/09/23 04/09/23 04/08/23 History (Jardiance) glipizide 5 mg tablet, extended 5 mg PO BID 04/09/23 04/09/23 04/08/23 History release 24 hr zolpidem 10 mg tablet 10 mg PO BEDTIME 04/09/23 04/09/23 04/08/23 History Allergies Allergy/AdvReac Type Severity Reaction Status Date / Time cat dander Allergy Mild ALGY-Conges Verified 04/09/23 07:40 jm dog dander Allergy Mild ALGY-Conges Verified 04/09/23 07:40 jm house dust Allergy Mild ALGY-Conges Verified 04/09/23 07:40 jm Penicillins Allergy Unknown swelling Verified 04/09/23 07:40 pravastatin Allergy Unknown leg cramps Verified 04/09/23 07:40 atorvastatin [From Lipitor] AdvReac muscle Verified 04/09/23 07:40 cramps PFSH Acute 2 PFSH: Medical History Secondary polycythemia Greater trochanteric bursitis of left hip Obesity CAD (coronary artery disease) Lumbar disc disease with radiculopathy USP (current) use of opiate analgesic Post laminectomy syndrome Acute bilateral low back pain with left-sided sciatica Insomnia Mixed hyperlipidemia Anxiety and depression Essential (primary) hypertension Uncontrolled diabetes mellitus with hyperglycemia Surgical History History of umbilical hernia 2017 History of lumbar surgery Left L4-L5 [place]ilaminotomy[place]amin[place] [facility] [place] History Mother Diabetes Heart disease Denies family history of Bleeding disorder Social History Smoking and tobacco/nicotine status: former use of tobacco/nicotine Quit status (tobacco/nicotine): has quit using Year quit tobacco: 2009 Former quit date comment: 2ppd X 40 years Second hand smoke exposure: No Alcohol intake: never Substance/Drug Use: never Adopted: No Caregiver/support person: No Lives independently: Yes Household members: spouse Housing: House Marital status: Current occupational status: unemployed Do you think of yourself as: Straight/Heterosexual Current gender identity: Male Data 04/09/23 05:50 04/09/23 05:50 Other data: EKG per my read demonstrates sinus rhythm, left axis deviation, right bundle branch block. A&P Assessment and plan (1) Constipation: Radiology imaging CT abdomen pelvis unremarkable. Though some stool noted in transverse and descending colon. Fleets enema Docusate/Senna PO Lipase is slightly elevated. Patient's symptomatology does not go completely along with pancreatitis. No pancreas inflammation is noted on CT scan. Okay to initiate diet, clear liquids (2) Hypoxia: Seems chronic in nature. Currently on 1L/NC at 95 to 96% SpO2. Nursing staff to remove oxygen and reevaluate patient. Maintain SpO2 of >90%. Home oxygen evaluation when ultimately discharged (3) CAD (coronary artery disease): Qualifiers: Associated angina: without angina Coronary Disease-Associated Artery/Lesion type: elim ira artery [place] vs. transplanted heart: elim ira heart Qualified Code(s): I25.10 - Atherosclerotic heart disease of elim ir[place] coronary artery without angina pectoris (4) Essential (primary) hypertension: (5) Uncontrolled diabetes mellitus with hyperglycemia: Seems somewhat noncompliant with diet though reports that he is compliant with his insulin and p.o. diabetic medication. Recent hemoglobin A1c performed in which revealed 8.0. Glucose level in emergency room was 180. Patient is currently receiving Lantus 10 units daily, glipizide 5 mg twice daily, Jardiance 25 mg p.o. daily, Trulicity. Discontinue Trulicity as this could be associated with elevated pancreatic enzymes and constipation Continue Lantus Hold glipizide and Jardiance Sliding scale insulin Qualifiers: Diabetes mellitus type: type 2 Qualified Code(s): E11.65 - Type 2 diabetes mellitus with hyperglycemia Attestations 2 Medical Necessity Statement*: Will need less than 2 midnight stay for evaluation and treatment of abdominal discomfort Diagnoses Constipation K59.00 Hypoxia R09.02 Coronary artery disease involving elim ira coronary artery of elim ira heart without angina pectoris I25.10 Associated angina: without angina Coronary Disease-Associated Artery/Lesion type: elim ira artery [place] vs. transplanted heart: elim ira heart Essential (primary) hypertension I10 Uncontrolled type 2 diabetes mellitus with hyperglycemia E11.65 Diabetes mellitus type: type 2 Time Spent (min) 36
[2023-04-09 09:05] LABS: Lactic Acid level (Lactate) 1.2 mmol/L (0.5-2.2)
[2023-04-09] MEDS: sennosides-docusate Tablet 2 TAB PO (10:22)
[2023-04-09] MEDS: bisacodyl 10 mg Supp PR (10:24)
[2023-04-09 11:59] LABS: Glucose Point of Care 129 mg/dL (70-110)
[2023-04-09] MEDS: ipratropium-albuterol 3 mL Neb INHALATION ×2 (13:34→19:52)
[2023-04-09] MEDS: enoxaparin 40 mg/0.4 mL Syringe SUBCUT (13:59)
[2023-04-09] MEDS: sodium chloride 0.9% 1,000 ML 100 ML IV ×2 (13:59→23:03)
[2023-04-09 16:33] LABS: Glucose Point of Care 90 mg/dL (70-110)
[2023-04-09] MEDS: docusate sodium 100 mg Capsule PO (17:17)
[2023-04-09] MEDS: pantoprazole DR 40 mg Tablet PO (17:17)
[2023-04-09] MEDS: isosorbide mononitrate ER 30 mg Tablet PO (17:17)
[2023-04-09] MEDS: budesonide 0.5 mg/2 mL Neb INHALATION (19:52)
[2023-04-09 20:03] LABS: Glucose Point of Care 139 mg/dL (70-110)
[2023-04-09] MEDS: zolpidem 5 mg Tablet 10 MG PO (21:03)
[2023-04-09] MEDS: sennosides 8.6 mg Tablet 17.2 MG PO (21:03)
[2023-04-10 02:00] VITALS: RESP 18
[2023-04-10 04:29] VITALS: BP 107/70; PULSE 72; RESP 18; TEMP 36.6; O2SAT 92
[2023-04-10 05:01] LABS: Basophils # 0.1 10^3/uL (0.0-0.1); Basophils % 1.3 %; Eosinophils # 0.2 10^3/uL (0.0-0.8); Eosinophils % 3.6 %; Hematocrit 49.3 % (37-53); Lymphocytes # 2.1 10^3/uL (0.8-4.8); Lymphocytes % 44.4 %; Mean Corpuscular HGB Conc 32.5 g/dL (30-55); Mean Corpuscular Hemoglobin 28.9 pg (27-33); Mean Corpuscular Volume 89.2 fl (82-101); Mean Platelet Volume 9.8 fL (7.4-10.4); Monocytes # 0.4 10^3/uL (0.2-0.9); Monocytes % 8.8 %; Neutrophils # 1.95 10^3/uL (1.8-7.7); Neutrophils % 41.7 %; Nucleated Red Blood Cells % 0 %; Platelet Count 222 10^3/cmm (157-399); Red Blood Count 5.53 10^6/uL (3.85-5.65); Red Cell Distribution Width 13.3 % (12.1-15.1); White Blood Count 4.68 10^3/uL (3.29-11.43)
[2023-04-10 05:18] LABS: Alanine Aminotransferase 26 U/L (0-41); Albumin Level 3.5 g/dL (3.5-5.2); Alkaline Phosphatase 43 U/L (40-130); Aspartate Amino Transferase 21 U/L (0-40); Blood Urea Nitrogen 7 mg/dL (8-23); Calcium 8.6 mg/dL (8.5-10.5); Carbon Dioxide 27 mmol/L (22-29); Chloride 104 mmol/L (98-107); Globulin 2.4 g/dL (1.3-4.6); Glomerular Filtration Rate 97.3 mL/min (90-130); Glucose 139 mg/dL (65-115); Osmolality Calculated 288 mOsm/kg (285-295); Sodium 139 mmol/L (136-145); Total Bilirubin 0.5 mg/dL (0.15-1.2); Total Protein 5.9 g/dL (6.6-8.7)
[2023-04-10] MEDS: aspirin 81 mg EC Tablet PO (05:18)
[2023-04-10] MEDS: clopidogrel 75 mg Tablet PO (05:18)
[2023-04-10 06:32] LABS: Glucose Point of Care 170 mg/dL (70-110)
[2023-04-10 07:32] VITALS: BP 130/82; PULSE 80; RESP 17; TEMP 36.5; O2SAT 93
[2023-04-10 08:20] VITALS: PULSE 73; RESP 18; O2SAT 96
[2023-04-10] MEDS: budesonide 0.5 mg/2 mL Neb INHALATION (08:20)
[2023-04-10] MEDS: ipratropium-albuterol 3 mL Neb INHALATION (08:20)
[2023-04-10] MEDS: sodium chloride 0.9% 1,000 ML 100 ML IV (08:30)
[2023-04-10] MEDS: pantoprazole DR 40 mg Tablet PO (08:30)
[2023-04-10] MEDS: lisinopril 10 mg Tablet PO (08:30)
[2023-04-10] MEDS: insulin lispro 100 unit/1 mL SUBCUT (08:30)
[2023-04-10] MEDS: insulin glargine 100 units/1 mL 10 UNIT SUBCUT (08:30)
[2023-04-10] MEDS: isosorbide mononitrate ER 30 mg Tablet PO (08:30)
[2023-04-10] MEDS: docusate sodium 100 mg Capsule PO (08:30)
[2023-04-10] MEDS: ezetimibe 10 mg Tablet PO (08:30)
--- NOTE | 2023-04-10 10:19 | PC.CHAP ---
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 [] Patient/Family/Request visit [] Outpatient visit [] Follow-up visit [] Physician referral [] Code/Alert [x] Routine visit [] Staff referral [] Actively dying [] Patient sleeping [] Family support [] [] Out of room [] Palliative care [] [x] Receiving care in room [] Pre-surgical visit [] Trauma [] Long length of stay [] ICU visit [] Other: Relational/Emotional Strength [x] Patient feels connected with others/family/visitors/staff [] Distress [] Loneliness/isolation [] Abandonment Spirituality of Patient [x] Person of Abigail [] Attends [employer]ian of their Abigail [x] Believes in Prayer [] Reads Bible or Gnosticist materials [] There are Spiritual issues to be addressed Concentrator Operator Interventions [x] Prayer [x] Active listening [x] Non-anxious presence [x] Spiritual/emotional support [] Crisis/trauma care [x] Spiritual counseling [] Bereavement support [] Provided bereavement packet [] Provided Bible/devotional materials [] Provided toy/stuffed animal, coloring book to patient or family member [] Provided Communion [] Anointing/[place] [] Salvation [x] Completed spiritual assessment [] Other: Impact on Illness or Injury [] Angry [] Fearful [] Anxious [] Often cries [] Exhaustion [] Unable to work [] Unable to attend orthodox [] Unable to walk/stand [] Unable to read [] Unable to drive [] Unable to eat/drink [] Unable to sleep [] Unable to be with family [] Patient intubated [] Other: Summary pancreas blood checking test and waiting on doctor for resukts well be going home Time spent with patient 10 mins
[2023-04-10] MEDS: polyethylene glycol 3350 Pkt 17 gm PO (10:34)
[2023-04-10 11:10] LABS: Glucose Point of Care 127 mg/dL (70-110)
[2023-04-10 11:44] VITALS: BP 112/66; PULSE 81; RESP 17; TEMP 36.3; O2SAT 90
[2023-04-10] MEDS: enoxaparin 40 mg/0.4 mL Syringe SUBCUT (12:12)
--- NOTE | 2023-04-10 12:19 | P.DS_ITS ---
Discharge Providers Date of Admission: 04/09/23 08:53 Date of Discharge: April 10, 2023 Attending Provider at Admission: Sergio Kaplan MD Attending Provider at Discharge: Sergio Kaplan MD Primary Care Provider: NICK Rodrigues Diagnoses at Discharge Discharge Diagnosis (1) Constipation: Status: Acute (2) Hypoxia: Status: Acute (3) CAD (coronary artery disease): Status: Acute Qualifiers: Coronary Disease-Associated Artery/Lesion type: [place] artery [place] vs. transplanted heart: [place] heart Associated angina: without angina Qualified Code(s): I25.10 - Atherosclerotic heart disease of [place] coronary artery without angina pectoris (4) Essential (primary) hypertension: Status: Chronic (5) Uncontrolled diabetes mellitus with hyperglycemia: Status: Chronic Qualifiers: Diabetes mellitus type: type 2 Qualified Code(s): E11.65 - Type 2 diabetes mellitus with hyperglycemia Reason for Visit Reason for Visit: lower righ abd pain, lower side/back pain Hospital Course Hospital Course Patient is a 62-year-old white male who presented to the hospital with concerns of abdominal discomfort. Lipase was slightly high. CT scan demonstrated a fair amount of stool, but no pancreas inflammation. There is still concern of pancreatitis. Oxygen level was slightly low, but he had no pleuritic pain and no tachycardia. He was initiated on clear liquids, fluids, and stool regimen was started. With this he had several large bowel movements, and abdominal discomfort went away. Secondary to question of pancreatitis Trulicity was discontinued on discharge. He will discuss with primary care provider if this could be restarted in the future. He was able to come off oxygen during his hospital stay. However, he has underlying COPD and may need this in the future. He can be tested on outpatient follow-up. He was given opportunity ask questions, and agreed with the plan. He will follow-up with his primary care provider 3 to 5 days. Physical Exam Narrative: General exam no distress Neck is supple Cardiovascular regular rate rhythm Lungs clear Abdomen is soft Extremities no sinus clubbing edema Discharge Data Studies Completed and Pending Completed Studies During Hospitalization Category Date Time Status CT abdomen pelvis wo con [id number] Stat Cat Scan 04/09/23 06:31 Completed XR acute abdomen series [id number] Stat Exams 04/09/23 06:27 Completed Radiology Impressions Chest/Abdomen X-ray 04/09/23 06:27 IMPRESSION: No acute findings. Abdomen/Pelvis CT 04/09/23 06:31 IMPRESSION: No acute subdiaphragmatic pathology. Laboratory Results WBC 4.68 10^3/uL (3.29-11.43) 04/10/23 04:21 RBC 5.53 10^6/uL (3.85-5.65) 04/10/23 04:21 Hgb 16.00 g/dL (11.27-16.99) 04/10/23 04:21 Hct 49.3 % (37-53) 04/10/23 04:21 MCV 89.2 fl (82-101) 04/10/23 04:21 MCH 28.9 pg (27-33) 04/10/23 04:21 MCHC 32.5 g/dL (30-55) 04/10/23 04:21 RDW 13.3 % (12.1-15.1) 04/10/23 04:21 Plt Count 222 10^3/cmm (157-399) 04/10/23 04:21 MPV 9.8 fL (7.4-10.4) 04/10/23 04:21 Neut % (Auto) 41.7 % 04/10/23 04:21 Lymph % (Auto) 44.4 % 04/10/23 04:21 [place] % (Auto) 8.8 % 04/10/23 04:21 Eos % (Auto) 3.6 % 04/10/23 04:21 Baso % (Auto) 1.3 % 04/10/23 04:21 Neut # (Auto) 1.95 10^3/uL (1.8-7.7) 04/10/23 04:21 Lymph # (Auto) 2.1 10^3/uL (0.8-4.8) 04/10/23 04:21 [place] # (Auto) 0.4 10^3/uL (0.2-0.9) 04/10/23 04:21 Eos # (Auto) 0.2 10^3/uL (0.0-0.8) 04/10/23 04:21 Baso # (Auto) 0.1 10^3/uL (0.0-0.1) 04/10/23 04:21 Nucleated RBC % (auto) 0 % 04/10/23 04:21 Nucleated RBCs # 0.0 /100WBC 04/10/23 04:21 Sodium 139 mmol/L (136-145) 04/10/23 04:21 Potassium 4.0 mmol/L (3.5-5.1) 04/10/23 04:21 Chloride 104 mmol/L (98-107) 04/10/23 04:21 Carbon Dioxide 27 mmol/L (22-29) 04/10/23 04:21 Anion Gap 12.0 (5-19) 04/10/23 04:21 BUN 7 mg/dL (8-23) L 04/10/23 04:21 Creatinine 0.8 mg/dL (0.7-1.2) 04/10/23 04:21 GFR Calculation 97.3 mL/min (90-130) 04/10/23 04:21 Glucose 139 mg/dL (65-115) H 04/10/23 04:21 POC Glucose 127 mg/dL (70-110) H 04/10/23 10:59 Calculated Osmolality 288 mOsm/kg (285-295) 04/10/23 04:21 Lactic Acid 2.6 mmol/L (0.5-2.2) H 04/09/23 05:50 Lactic Acid (Sepsis) 1.2 mmol/L (0.5-2.2) 04/09/23 08:40 Calcium 8.6 mg/dL (8.5-10.5) 04/10/23 04:21 Total Bilirubin 0.5 mg/dL (0.15-1.2) 04/10/23 04:21 AST 21 U/L (0-40) 04/10/23 04:21 ALT 26 U/L (0-41) 04/10/23 04:21 Alkaline Phosphatase 43 U/L (40-130) 04/10/23 04:21 Total Protein 5.9 g/dL (6.6-8.7) L D 04/10/23 04:21 Albumin 3.5 g/dL (3.5-5.2) 04/10/23 04:21 Globulin 2.4 g/dL (1.3-4.6) 04/10/23 04:21 Triglycerides 130 mg/dL (0-150) 04/09/23 05:50 Lipase 259 U/L (13-60) H 04/09/23 05:50 Urine Color Yellow (Yellow) 04/09/23 05:58 Urine Appearance Clear (CLEAR) 04/09/23 05:58 Urine pH 5 (5-7) 04/09/23 05:58 Ur Specific [place] 1.020 (1.005-1.030) 04/09/23 05:58 Urine Protein Neg (Negative) 04/09/23 05:58 Urine Glucose (UA) 4+ (Normal) H 04/09/23 05:58 Urine Ketones Negative (Negative) 04/09/23 05:58 Urine Blood Neg (Negative) 04/09/23 05:58 Urine Nitrate Negative (Negative) 04/09/23 05:58 Urine Bilirubin Neg (Negative) 04/09/23 05:58 Urine Urobilinogen Neg mg/dL (Negative) 04/09/23 05:58 Ur Leukocyte Esterase Negative (Negative) 04/09/23 05:58 Vitals Last Vital Signs Temp 97.4 F L 04/10/23 11:44 Pulse 81 04/10/23 11:44 Resp 17 04/10/23 11:44 BP 112/66 04/10/23 11:44 Pulse Ox 90 04/10/23 11:44 O2 Del Method Room Air 04/10/23 11:44 O2 Flow Rate 1 04/10/23 02:00 Discharge Plan Discharge Patient Disposition: Home Condition: Stable Prescriptions: New pantoprazole [Protonix] 40 mg tablet,delayed release (DR/EC) 40 mg PO DAILY Qty: 30 0RF docusate sodium 100 mg Capsule 100 mg PO BID Qty: 60 0RF polyethylene glycol 3350 17 gram Powder In Packet 17 g PO BID Qty: 60 0RF Continued aspirin 81 mg tablet,delayed release (DR/EC) 81 mg PO QAM albuterol sulfate [Ventolin HFA] 90 mcg/actuation HFA aerosol inhaler 2 puff inhalation Q6H PRN (Reason: shortness of breath or wheezing) Qty: 8.5 0RF lisinopril 10 mg tablet 10 mg PO DAILY Qty: 90 3RF Hold Instructions: hypotension isosorbide mononitrate 30 mg tablet extended release 24 hr 30 mg PO BID Qty: 90 3RF ezetimibe 10 mg tablet 10 mg PO DAILY Qty: 90 3RF budesonide-formoterol [Symbicort] 80-4.5 mcg/actuation HFA aerosol inhaler 2 puff inhalation BID Qty: 10.2 6RF insulin glargine [Basaglar KwikPen U-100 Insulin] 100 unit/mL (3 mL) insulin pen 10 unit SUBCUT DAILY Qty: 15 2RF clopidogrel 75 mg tablet 75 mg PO QAM Qty: 90 3RF Hold Instructions: Resume on 06/01/22. (DME) pen needle, diabetic 32 gauge x 1/4 needle See Rx Instructions .Route Qty: 100 12RF Rx Instructions: DAILY nitroglycerin 0.4 mg tablet, sublingual 0.4 mg SUBLINGUAL Q5M PRN (Reason: chest pain) Qty: 25 3RF Rx Instructions: do not exceed 3 doses per episode glipizide 5 mg tablet extended release 24hr 5 mg PO BID zolpidem 10 mg tablet 10 mg PO BEDTIME Jardiance 25 mg tablet 25 mg PO QAM Discontinued Trulicity 4.5 mg/0.5 mL pen injector See Rx Instructions .ROUTE .COMPLEX Qty: 2 2RF Dose Instruction: INJECT 0.5ML (=4.5 MG) SUBCUTANEOUSLY ONCE WEEKLY (EVERY 7 DAYS) Rx Instructions: INJECT 0.5ML (=4.5 MG) SUBCUTANEOUSLY ONCE WEEKLY (EVERY 7 DAYS) ON FRIDAY Discharge Orders: Discharge Order (Routine); Ordered 04/10/23 Ordered By: Sergio Kaplan Referrals: Birgit Álvarez FNP [Primary Care Provider] - 4-7 days (We have notified your physician's clinic of the need for a follow-up appointment to be scheduled. If you have not heard from them within the next 2 business days, please call them directly. ) Discharge Diet: Diabetic Discharge Activity: Increase activity as tolerated Patient Instructions: Opioid Safety, Pain Management Activity Restrictions/Additional Instructions: Take all medicine as prescribed Follow-up with your primary care provider 3 to 5 days Stop Trulicity Continue MiraLAX, Colace on discharge. Titrate to 1 soft bowel movement daily. Return for any concerns Low-fat diet Discharge Attestations Time Spent in Discharge Care*: greater than 30 min Quality Metrics Clinical Quality Measures [ No reported AMI, CVA or VTE this stay] Coding Level of Care Code 23156 Total time (in minutes) for Discharge: 38 Diagnoses Constipation K59.00 Hypoxia R09.02 Coronary artery disease involving [place] coronary artery of [place] heart without angina pectoris I25.10 Coronary Disease-Associated Artery/Lesion type: [place] artery [place] vs. transplanted heart: [place] heart Associated angina: without angina Essential (primary) hypertension I10 Uncontrolled type 2 diabetes mellitus with hyperglycemia E11.65 Diabetes mellitus type: type 2
[2023-04-10 13:30] VITALS: BP 112/66; PULSE 81; RESP 17; TEMP 36.3; O2SAT 90
== END 2023-04-10 13:00 | disposition home or self-care (01) ==
LOC: ER 07:58 → MEDSURG 11:43
PROVIDERS: Admitting Provider Internal Medicine; Emergency Provider Family Medicine; PCP Nurse Practitioner Family; Visit Provider Internal Medicine
DX: K59.00 Constipation, unspecified (principal); R09.02 Hypoxemia; I25.10 Atherosclerotic heart disease of native coronary artery without angina pectoris; I10 Essential (primary) hypertension; E11.65 Type 2 diabetes mellitus with hyperglycemia; J44.9 Chronic obstructive pulmonary disease, unspecified; E78.5 Hyperlipidemia, unspecified; E11.9 Type 2 diabetes mellitus without complications; G47.33 Obstructive sleep apnea (adult) (pediatric); B19.20 Unspecified viral hepatitis C without hepatic coma; Z79.82 Long term (current) use of aspirin; E66.9 Obesity, unspecified; Z68.41 Body mass index [BMI] 40.0-44.9, adult; Z79.891 Long term (current) use of opiate analgesic; G89.29 Other chronic pain; E78.2 Mixed hyperlipidemia; Z87.891 Personal history of nicotine dependence
CPT/HCPCS: 36415; 36416; 74022; 74176; 80053; 81003; 82962; 83605; 83690; 84478; 85025; 93005; 94640; 96361; 96372; 96374; 96375; 99285; G0378; J1650; J1815; J2405; J7030; J7626

== ENCOUNTER 2023-04-15 12:52 | Emergency (ER) | payer OTHER, SELFPAY ==
[2023-04-15 13:26] VITALS: BP 134/76; PULSE 98; RESP 16; TEMP 37.1; O2SAT 93; BMI 43.5
--- NOTE | 2023-04-15 13:43 | ED_ITS ---
HPI - Abdominal Pain 2 General: Chief Complaint: Abdominal Pain Stated Complaint: left, upper abd pain Time Seen by Provider: 04/15/23 13:31 Source: patient Mode of arrival: ambulatory History of Present Illness: 62-year-old male with a known history of pancreatitis presents emergency room complaining of persistent abdominal pain since he was seen here last week during the hospitalization he never had any inflammation of his pancreas is scans showed constipation he was treated with aggressive bowel regimen and had improvement of his symptoms. He was on Trulicity when he was admitted that was stopped because of the elevation of his lipase. MD elicited complaint: abdominal pain Pertinent past history: constipation and other (Pancreatitis) Onset (ago): week(s) Pain Consistency: constant Location: LUQ Severity: moderate Quality: sharp Associated Symptoms: Reports bloating, constipation, GI cramping, dyspepsia, nausea and poor appetite; Denies anorexia, belching, change in bowel habits, change in stool character, chills, coffee ground emesis, diarrhea, dysuria, excessive flatus, fever(s), heartburn, hematochezia, hematuria, hematemesis, fecal incontinence, loose stools, melena, syncope and vomiting Review of Systems 2 Const: Denies: fever(s) or chills Card: Denies: chest pain or syncope Resp: Denies: dyspnea GI: Reports: abdominal pain, nausea, constipation, bloating and GI cramping; Denies: vomiting, hematemesis, coffee ground emesis, heartburn, diarrhea, belching, excessive flatus, fecal incontinence, change in bowel habits, change in stool character, hematochezia or melena : Denies: dysuria or hematuria Musc: Denies: neck pain or back pain Skin/Breast: Denies: rash PFSH ED 2 PFSH: Medical History Secondary polycythemia Greater trochanteric bursitis of left hip Obesity CAD (coronary artery disease) Lumbar disc disease with radiculopathy shelter (current) use of opiate analgesic Post laminectomy syndrome Acute bilateral low back pain with left-sided sciatica Insomnia Mixed hyperlipidemia Anxiety and depression Essential (primary) hypertension Uncontrolled diabetes mellitus with hyperglycemia Surgical History History of umbilical hernia 2017 History of lumbar surgery [place] L4-L5 [place]ilaminotomy[place]amin[place] [facility] [place] Mother Diabetes Heart disease Denies family history of Bleeding disorder Social History Smoking and tobacco/nicotine status: former use of tobacco/nicotine Quit status (tobacco/nicotine): has quit using Year quit tobacco: 2009 Former quit date comment: 2ppd X 40 years Second hand smoke exposure: No Alcohol intake: never Substance/Drug Use: never Adopted: No Caregiver/support person: No Lives independently: Yes Household members: spouse Housing: House Marital status: Current occupational status: unemployed Do you think of yourself as: Straight/Heterosexual Current gender identity: Male Physical Exam 2 Const: COMMON NORMALS: no acute distress GENERAL APPEARANCE: cooperative and comfortable ORIENTATION/CONSCIOUSNESS: Yes awake, Yes oriented to person, Yes oriented to place and Yes oriented to time HENMT: COMMON NORMALS: normocephalic, atraumatic and hearing grossly normal bilaterally HEAD & SCALP: normocephalic and atraumatic Resp: COMMON NORMALS: normal respiratory effort, No retractions, No use of accessory muscles and clear to auscultation bilaterally AUSCULTATION: clear to auscultation bilaterally Cardio: COMMON NORMALS: regular rate, regular rhythm and No murmurs present (Cardio) RATE: regular rate RHYTHM: regular rhythm GI: COMMON NORMALS: No hepatosplenomegaly present AUSCULTATION: Yes normoactive bowel sounds PALPATION: Yes Tenderness to palpation present (GI) Details: LUQ, No Guarding due to palpation present (GI) and Yes No hepatosplenomegaly present Extremity: COMMON NORMALS: normal to inspection, capillary refill normal, no clubbing, cyanosis or edema, no calf tenderness and no pedal edema Neuro: SENSORIUM/ORIENTATION: Yes oriented to person, Yes oriented to place and Yes oriented to time Skin: COMMON NORMALS: no rashes or lesions noted GENERAL SKIN EXAM: no rashes or lesions noted Course 2 Vital Signs: Vital signs: Vital Signs Temperature 98.8 F 04/15/23 13:26 Pulse Rate 92 04/15/23 16:00 Respiratory Rate 16 04/15/23 13:26 Blood Pressure 119/72 04/15/23 16:00 Pulse Oximetry 91 04/15/23 16:00 Oxygen Delivery Me thod Room Air 04/15/23 16:00 MDM - Abdominal Pain Medical Decision Making Labs and imaging reviewed no acute findings on the CT no leukocytosis. Reflux GERD diet increase pantoprazole to twice daily 10 days then daily follow-up with primary care if not improving Lab Data 04/15/23 14:10 04/15/23 14:10 Labs/Radiology: Radiology Impressions Abdomen/Pelvis CT 04/15/23 14:42 IMPRESSION: No acute findings. Hepatic steatosis. COMMENTS: Consistent with the [place] [employer]'s Incidental Findings Committee white paper (J Am Jaime Radiol 2018): Any incidental renal lesion less than 1 cm or classified as too small to characterize, or any incidental cystic renal lesion characterized as simple-appearing, is likely benign. No follow-up imaging is recommended for these lesions per consensus recommendations based on imaging criteria. Laboratory Results WBC 6.97 10^3/uL (3.29-11.43) 04/15/23 14:10 RBC 5.82 10^6/uL (3.85-5.65) H 04/15/23 14:10 Hgb 16.80 g/dL (11.27-16.99) 04/15/23 14:10 Hct 50.6 % (37-53) 04/15/23 14:10 MCV 86.9 fl (82-101) 04/15/23 14:10 MCH 28.9 pg (27-33) 04/15/23 14:10 MCHC 33.2 g/dL (30-55) 04/15/23 14:10 RDW 13.3 % (12.1-15.1) 04/15/23 14:10 Plt Count 244 10^3/cmm (157-399) 04/15/23 14:10 MPV 9.2 fL (7.4-10.4) 04/15/23 14:10 Neut % (Auto) 59.2 % 04/15/23 14:10 Lymph % (Auto) 29.8 % 04/15/23 14:10 [place] % (Auto) 8.0 % 04/15/23 14:10 Eos % (Auto) 2.0 % 04/15/23 14:10 Baso % (Auto) 0.7 % 04/15/23 14:10 Neut # (Auto) 4.12 10^3/uL (1.8-7.7) 04/15/23 14:10 Lymph # (Auto) 2.1 10^3/uL (0.8-4.8) 04/15/23 14:10 [place] # (Auto) 0.6 10^3/uL (0.2-0.9) 04/15/23 14:10 Eos # (Auto) 0.1 10^3/uL (0.0-0.8) 04/15/23 14:10 Baso # (Auto) 0.1 10^3/uL (0.0-0.1) 04/15/23 14:10 Nucleated RBC % (auto) 0 % 04/15/23 14:10 Nucleated RBCs # 0.0 /100WBC 04/15/23 14:10 Sodium 140 mmol/L (136-145) 04/15/23 14:10 Potassium 4.3 mmol/L (3.5-5.1) 04/15/23 14:10 Chloride 102 mmol/L (98-107) 04/15/23 14:10 Carbon Dioxide 26 mmol/L (22-29) 04/15/23 14:10 Anion Gap 16.3 (5-19) 04/15/23 14:10 BUN 12 mg/dL (8-23) 04/15/23 14:10 Creatinine 0.9 mg/dL (0.7-1.2) 04/15/23 14:10 GFR Calculation 85.0 mL/min (90-130) L 04/15/23 14:10 Glucose 229 mg/dL (65-115) H 04/15/23 14:10 Calculated Osmolality 297 mOsm/kg (285-295) H 04/15/23 14:10 Calcium 9.1 mg/dL (8.5-10.5) 04/15/23 14:10 Total Bilirubin 0.2 mg/dL (0.15-1.2) 04/15/23 14:10 AST 18 U/L (0-40) 04/15/23 14:10 ALT 24 U/L (0-41) 04/15/23 14:10 Alkaline Phosphatase 57 U/L (40-130) 04/15/23 14:10 Total Protein 6.8 g/dL (6.6-8.7) 04/15/23 14:10 Albumin 3.8 g/dL (3.5-5.2) 04/15/23 14:10 Globulin 3.0 g/dL (1.3-4.6) 04/15/23 14:10 Lipase 41 U/L (13-60) 04/15/23 14:10 Urine Color Yellow (Yellow) 04/15/23 15:24 Urine Appearance Clear (CLEAR) 04/15/23 15:24 Urine pH 5 (5-7) 04/15/23 15:24 Ur Specific [place] 1.005 (1.005-1.030) 04/15/23 15:24 Urine Protein Neg (Negative) 04/15/23 15:24 Urine Glucose (UA) 4+ (Normal) H 04/15/23 15:24 Urine Ketones Negative (Negative) 04/15/23 15:24 Urine Blood Neg (Negative) 04/15/23 15:24 Urine Nitrate Negative (Negative) 04/15/23 15:24 Urine Bilirubin Neg (Negative) 04/15/23 15:24 Urine Urobilinogen Norm mg/dL (Negative) 04/15/23 15:24 Ur Leukocyte Esterase Negative (Negative) 04/15/23 15:24 All radiology interpretation(s) finalized by discharge Discharge Plan Discharge Patient Disposition: Home Clinical Impression: Abdominal pain, GERD (gastroesophageal reflux disease) Condition: Stable Prescriptions: New Protonix 40 mg tablet,delayed release (DR/EC) 40 mg PO BID 10 Days Qty: 40 0RF Rx Instructions: 1 p.o. twice daily x 10 days then 1 p.o. daily No Action aspirin 81 mg tablet,delayed release (DR/EC) 81 mg PO QAM albuterol sulfate [Ventolin HFA] 90 mcg/actuation HFA aerosol inhaler 2 puff inhalation Q6H PRN (Reason: shortness of breath or wheezing) Qty: 8.5 0RF lisinopril 10 mg tablet 10 mg PO DAILY Qty: 90 3RF Hold Instructions: hypotension isosorbide mononitrate 30 mg tablet extended release 24 hr 30 mg PO BID Qty: 90 3RF ezetimibe 10 mg tablet 10 mg PO DAILY Qty: 90 3RF budesonide-formoterol [Symbicort] 80-4.5 mcg/actuation HFA aerosol inhaler 2 puff inhalation BID Qty: 10.2 6RF insulin glargine [Basaglar KwikPen U-100 Insulin] 100 unit/mL (3 mL) insulin pen 10 unit SUBCUT DAILY Qty: 15 2RF clopidogrel 75 mg tablet 75 mg PO QAM Qty: 90 3RF Hold Instructions: Resume on 06/01/22. (DME) pen needle, diabetic 32 gauge x 1/4 needle See Rx Instructions .Route Qty: 100 12RF Rx Instructions: DAILY nitroglycerin 0.4 mg tablet, sublingual 0.4 mg SUBLINGUAL Q5M PRN (Reason: chest pain) Qty: 25 3RF Rx Instructions: do not exceed 3 doses per episode ketoconazole 2 % shampoo See Rx Instructions .ROUTE .COMPLEX Rx Instructions: APPLY TO AFFECTED AREA TOPICALLY WEEKLY NEEDED 1-2 TIMES, SITTING 5 MINUTES BEFORE RINSING. glipizide 5 mg tablet extended release 24hr 5 mg PO BID zolpidem 10 mg tablet 10 mg PO BEDTIME Jardiance 25 mg tablet 25 mg PO QAM polyethylene glycol 3350 17 gram Powder In Packet 17 g PO BID Qty: 60 0RF docusate sodium 100 mg Capsule 100 mg PO BID Qty: 60 0RF pantoprazole [Protonix] 40 mg tablet,delayed release (DR/EC) 40 mg PO DAILY Qty: 30 0RF Discharge Orders: Discharge ED (Routine); Ordered 04/15/23 Ordered By: Samson Garcia Referrals: Birgit Álvarez, [facility] [Primary Care Provider] - Discharge Diet: As Directed Discharge Activity: Increase activity as tolerated Patient Instructions: Diet for Stomach Ulcers and Gastritis (ED), GERD (Gastroesophageal Reflux Disease) (ED), Abdominal Pain (ED), Opioid Safety, Pain Management Activity Restrictions/Additional Instructions: Thank you for choosing [facility] for your healthcare needs today. Please realize this is an emergency room and that we are providing you with a medical screening exam and this may not be complete and all inclusive of all the testing and or work up that you may need to determine your ailment or severity of your illness. It is very important that you follow up as instructed or that you return to the Emergency Department should you have concerns or if your condition changes or worsens in any way. Your laboratory studies and CT showed no significant abnormality. Suspect you have reflux that is causing abdominal pain start on pantoprazole 1 pill twice daily for 10 days then once daily diet for gastritis and stomach ulcers. Follow-up with your primary care doctor. Coding Level of Care Code ED Media Monitor for Katie Burt
[2023-04-15 13:51] VITALS: BP 146/78; PULSE 96; O2SAT 93
[2023-04-15 14:09] VITALS: BP 120/75; PULSE 99; O2SAT 92
[2023-04-15 14:22] LABS: Basophils # 0.1 10^3/uL (0.0-0.1); Basophils % 0.7 %; Eosinophils # 0.1 10^3/uL (0.0-0.8); Hematocrit 50.6 % (37-53); Lymphocytes # 2.1 10^3/uL (0.8-4.8); Lymphocytes % 29.8 %; Mean Corpuscular HGB Conc 33.2 g/dL (30-55); Mean Corpuscular Hemoglobin 28.9 pg (27-33); Mean Corpuscular Volume 86.9 fl (82-101); Mean Platelet Volume 9.2 fL (7.4-10.4); Monocytes # 0.6 10^3/uL (0.2-0.9); Neutrophils # 4.12 10^3/uL (1.8-7.7); Neutrophils % 59.2 %; Nucleated Red Blood Cells % 0 %; Platelet Count 244 10^3/cmm (157-399); Red Blood Count 5.82 10^6/uL (3.85-5.65); Red Cell Distribution Width 13.3 % (12.1-15.1); White Blood Count 6.97 10^3/uL (3.29-11.43)
[2023-04-15 14:38] LABS: Alanine Aminotransferase 24 U/L (0-41); Albumin Level 3.8 g/dL (3.5-5.2); Alkaline Phosphatase 57 U/L (40-130); Anion Gap 16.3 (5-19); Aspartate Amino Transferase 18 U/L (0-40); Blood Urea Nitrogen 12 mg/dL (8-23); Calcium 9.1 mg/dL (8.5-10.5); Carbon Dioxide 26 mmol/L (22-29); Chloride 102 mmol/L (98-107); Glucose 229 mg/dL (65-115); Lipase 41 U/L (13-60); Osmolality Calculated 297 mOsm/kg (285-295); Potassium 4.3 mmol/L (3.5-5.1); Sodium 140 mmol/L (136-145); Total Bilirubin 0.2 mg/dL (0.15-1.2); Total Protein 6.8 g/dL (6.6-8.7)
--- NOTE | 2023-04-15 14:42 | CTR_ITS ---
PROCEDURE INFORMATION: Exam: CT Abdomen And Pelvis With Contrast Exam date and time: 04/15/2023 3:10 PM Age: 62 years old Clinical indication: Abdominal pain; Localized; Left upper quadrant (luq); Additional info: Abd pain TECHNIQUE: Imaging protocol: Computed tomography of the abdomen and pelvis with contrast. Radiation optimization: All CT scans at this facility use at least one of these dose optimization techniques: automated exposure control; mA and/or kV adjustment per patient size (includes targeted exams where dose is matched to clinical indication); or iterative reconstruction. Contrast material: OMNI 350; Contrast volume: 100 ml; Contrast route: INTRAVENOUS (IV); REPORTING DATA: Count of CT and Cardiac NM exams in prior 12 months: This patient has received 3 known CTs and 0 known cardiac nuclear medicine studies in the 12 months prior to the current study. COMPARISON: CT abdomen pelvis wo con [id number] 04/09/2023 6:47 AM RADIATION DOSE METRICS: Total DLP (mGy-cm): 1349 FINDINGS: Liver: Hepatic steatosis. Gallbladder and bile ducts: Normal. No calcified stones. No ductal dilation. Pancreas: Normal. No ductal dilation. Spleen: Normal. No splenomegaly. Adrenal glands: Normal. No mass. Kidneys and ureters: Small right renal cyst. Stomach and bowel: Diverticulosis without evidence of diverticulitis. Appendix: No evidence of appendicitis. Intraperitoneal space: Unremarkable. No free air. No significant fluid collection. Vasculature: Unremarkable. No abdominal aortic aneurysm. Lymph nodes: Unremarkable. No enlarged lymph nodes. Urinary bladder: Unremarkable as visualized. Reproductive: Unremarkable as visualized. Bones/joints: Unremarkable. No acute fracture. Soft tissues: Unremarkable. CT/CT abdomen pelvis w con* [id number] IMPRESSION: No acute findings. Hepatic steatosis. COMMENTS: Consistent with the [place] [employer]'s Incidental Findings Committee white paper (J Am Jaime Radiol 2018): Any incidental renal lesion less than 1 cm or classified as too small to characterize, or any incidental cystic renal lesion characterized as simple-appearing, is likely benign. No follow-up imaging is recommended for these lesions per consensus recommendations based on imaging criteria.
[2023-04-15 14:56] VITALS: BP 120/66; PULSE 93; O2SAT 92
[2023-04-15] MEDS: iohexol 350 mg/mL 500 mL Btl (per mL) IV (15:14)
--- NOTE | 2023-04-15 15:39 | PC.PHAR ---
PT NO LONGER TAKING THE TRULICITY OF 04/15/23
[2023-04-15 16:00] VITALS: BP 119/72; PULSE 92; O2SAT 91
[2023-04-15 16:13] LABS: Add Urine Microscopic? NO; Charge for UA Resulting for Rev
[2023-04-15 16:15] LABS: Bilirubin Urine Neg (Negative); Blood Urine Neg (Negative); Glucose Urine UA 4+ (Normal); Ketones Urine Negative (Negative); Leukocyte Esterase Urine Negative (Negative); Nitrate Urine Negative (Negative); Protein Urine Neg (Negative); Specific Gravity, Urine 1.005 (1.005-1.030); Urine Appearance Clear (CLEAR); Urine Color Yellow (Yellow); Urobilinogen Urine Norm (Negative); pH Urine 5 (5-7)
== END 2023-04-15 16:35 | disposition home or self-care (01) ==
PROVIDERS: Emergency Medicine; Emergency Provider Family Medicine; PCP Nurse Practitioner Family
DX: K21.9 Gastro-esophageal reflux disease without esophagitis (principal); K76.0 Fatty (change of) liver, not elsewhere classified; Z79.82 Long term (current) use of aspirin; Z79.02 Long term (current) use of antithrombotics/antiplatelets; Z79.4 Long term (current) use of insulin; Z79.84 Long term (current) use of oral hypoglycemic drugs; Z87.891 Personal history of nicotine dependence; I25.10 Atherosclerotic heart disease of native coronary artery without angina pectoris; E78.2 Mixed hyperlipidemia; I10 Essential (primary) hypertension; E11.9 Type 2 diabetes mellitus without complications
CPT/HCPCS: 36415; 74177; 80053; 81003; 83690; 85025; 99285; Q9967

== ENCOUNTER 2023-05-01 11:12 | Oncology outpatient (recurring) (ONCR) | payer MEDICARE, SELFPAY ==
[2023-05-01 11:57] VITALS: BP 121/77; PULSE 101; TEMP 36.7; O2SAT 92
[2023-05-01 12:07] LABS: Basophils # 0.1 10^3/uL (0.0-0.1); Basophils % 0.8 %; Eosinophils # 0.1 10^3/uL (0.0-0.8); Eosinophils % 1.4 %; Hematocrit 53.7 % (37-53); Lymphocytes # 2.8 10^3/uL (0.8-4.8); Lymphocytes % 34.4 %; Mean Corpuscular HGB Conc 34.3 g/dL (30-55); Mean Corpuscular Hemoglobin 28.9 pg (27-33); Mean Corpuscular Volume 84.3 fl (82-101); Mean Platelet Volume 9.7 fL (7.4-10.4); Monocytes # 0.6 10^3/uL (0.2-0.9); Monocytes % 6.9 %; Neutrophils # 4.49 10^3/uL (1.8-7.7); Nucleated Red Blood Cells % 0 %; Platelet Count 295 10^3/cmm (157-399); Red Blood Count 6.37 10^6/uL (3.85-5.65); Red Cell Distribution Width 13.3 % (12.1-15.1)
[2023-05-01 12:24] LABS: Alanine Aminotransferase 29 U/L (0-41); Alkaline Phosphatase 63 U/L (40-130); Anion Gap 17.5 (5-19); Aspartate Amino Transferase 19 U/L (0-40); Blood Urea Nitrogen 19 mg/dL (8-23); Calcium 9.5 mg/dL (8.5-10.5); Carbon Dioxide 22 mmol/L (22-29); Chloride 101 mmol/L (98-107); Ferritin 82 ng/mL (30-400); Globulin 3.6 g/dL (1.3-4.6); Glomerular Filtration Rate 113.2 mL/min (90-130); Glucose 267 mg/dL (65-115); Iron 144 ug/dL (59-158); Osmolality Calculated 294 mOsm/kg (285-295); Percent Saturation 36.1 % (20-50); Potassium 4.5 mmol/L (3.5-5.1); Sodium 136 mmol/L (136-145); Total Bilirubin 0.6 mg/dL (0.15-1.2); Total Iron Binding Capacity 398 mcg/dl; Total Protein 7.6 g/dL (6.6-8.7); Unsaturated Iron Binding 254 ug/dL (112-347)
[2023-05-01 14:01] VITALS: BP 117/78; PULSE 130
== END 2023-05-21 23:59 | disposition home or self-care (01) ==
PROVIDERS: Internal Medicine; PCP Nurse Practitioner Family; Visit Provider Internal Medicine Medical Oncology
DX: D45 Polycythemia vera (principal); D75.1 Secondary polycythemia; R79.89 Other specified abnormal findings of blood chemistry; E11.65 Type 2 diabetes mellitus with hyperglycemia; Z79.899 Other long term (current) drug therapy
CPT/HCPCS: 80053; 82728; 83540; 83550; 85025; 99195; 99213

== ENCOUNTER 2023-06-02 09:53 | Oncology outpatient (recurring) (ONCR) | payer MEDICARE, SELFPAY ==
[2023-06-02 10:10] VITALS: BP 146/78; PULSE 96; RESP 16; TEMP 36.6; O2SAT 92
[2023-06-02 10:33] LABS: Basophils # 0.1 10^3/uL (0.0-0.1); Eosinophils # 0.1 10^3/uL (0.0-0.8); Eosinophils % 1.7 %; Hematocrit 48.2 % (37-53); Lymphocytes # 1.6 10^3/uL (0.8-4.8); Lymphocytes % 30.3 %; Mean Corpuscular HGB Conc 33.8 g/dL (30-55); Mean Corpuscular Hemoglobin 29.2 pg (27-33); Mean Corpuscular Volume 86.2 fl (82-101); Mean Platelet Volume 9.7 fL (7.4-10.4); Monocytes # 0.3 10^3/uL (0.2-0.9); Monocytes % 6.6 %; Neutrophils # 3.12 10^3/uL (1.8-7.7); Nucleated Red Blood Cells % 0 %; Platelet Count 248 10^3/cmm (157-399); Red Blood Count 5.59 10^6/uL (3.85-5.65); Red Cell Distribution Width 14.4 % (12.1-15.1); White Blood Count 5.19 10^3/uL (3.29-11.43)
== END 2023-06-19 23:59 | disposition home or self-care (01) ==
PROVIDERS: Internal Medicine; PCP Nurse Practitioner Family; Visit Provider Internal Medicine Medical Oncology
DX: D75.1 Secondary polycythemia
CPT/HCPCS: 36415; 85025

== ENCOUNTER → 2023-06-05 10:55 | Outpatient (BNVA) | payer MEDICARE, SELFPAY | PROVIDERS: PCP Nurse Practitioner Family; Visit Provider Nurse Practitioner Family | DX: E11.65 Type 2 diabetes mellitus with hyperglycemia (principal); Z12.5 Encounter for screening for malignant neoplasm of prostate; Z11.59 Encounter for screening for other viral diseases; E55.9 Vitamin D deficiency, unspecified | CPT/HCPCS: 80053; 80061; 82043; 82306; 83036; 83721; 84443; 85025; 86803; G0103 ==

== ENCOUNTER → 2023-07-03 13:45 | Outpatient (BNVA) | payer MEDICARE, SELFPAY | PROVIDERS: PCP Nurse Practitioner Family; Visit Provider Internal Medicine Cardiovascular Disease | DX: R06.02 Shortness of breath (principal); I25.10 Atherosclerotic heart disease of native coronary artery without angina pectoris; I10 Essential (primary) hypertension; E78.2 Mixed hyperlipidemia; Z87.891 Personal history of nicotine dependence | CPT/HCPCS: 99214 ==

== ENCOUNTER → 2023-07-10 11:13 | Outpatient (BNVA) | payer MEDICARE, SELFPAY | PROVIDERS: PCP Nurse Practitioner Family; Visit Provider Nurse Practitioner Family | DX: E11.65 Type 2 diabetes mellitus with hyperglycemia (principal) | CPT/HCPCS: 80053 ==

== ENCOUNTER 2023-08-04 10:35 | Oncology outpatient (recurring) (ONCR) | payer MEDICARE, SELFPAY ==
[2023-08-04 11:06] LABS: Basophils % 0.7 %; Eosinophils # 0.1 10^3/uL (0.0-0.8); Eosinophils % 2.4 %; Hematocrit 49.8 % (37-53); Lymphocytes # 1.9 10^3/uL (0.8-4.8); Lymphocytes % 32.1 %; Mean Corpuscular HGB Conc 33.7 g/dL (30-55); Mean Corpuscular Hemoglobin 29.2 pg (27-33); Mean Corpuscular Volume 86.5 fl (82-101); Mean Platelet Volume 9.9 fL (7.4-10.4); Monocytes # 0.4 10^3/uL (0.2-0.9); Monocytes % 7.3 %; Neutrophils % 57.3 %; Nucleated Red Blood Cells % 0 %; Platelet Count 255 10^3/cmm (157-399); Red Blood Count 5.76 10^6/uL (3.85-5.65); Red Cell Distribution Width 13.6 % (12.1-15.1); White Blood Count 5.92 10^3/uL (3.29-11.43)
[2023-08-04 11:22] LABS: Alanine Aminotransferase 32 U/L (0-41); Albumin Level 3.9 g/dL (3.5-5.2); Alkaline Phosphatase 61 U/L (40-130); Anion Gap 16.4 (5-19); Aspartate Amino Transferase 26 U/L (0-40); Blood Urea Nitrogen 13 mg/dL (8-23); Calcium 9.6 mg/dL (8.5-10.5); Carbon Dioxide 23 mmol/L (22-29); Chloride 101 mmol/L (98-107); Globulin 3.2 g/dL (1.3-4.6); Glomerular Filtration Rate 135.2 mL/min (90-130); Glucose 250 mg/dL (65-115); Osmolality Calculated 291 mOsm/kg (285-295); Potassium 4.4 mmol/L (3.5-5.1); Sodium 136 mmol/L (136-145); Total Bilirubin 0.5 mg/dL (0.15-1.2); Total Protein 7.1 g/dL (6.6-8.7)
== END 2023-08-19 23:59 | disposition home or self-care (01) ==
PROVIDERS: Internal Medicine; PCP Nurse Practitioner Family; Visit Provider Internal Medicine Medical Oncology
DX: D75.1 Secondary polycythemia (principal)
CPT/HCPCS: 36415; 80053; 85025; 99213

== ENCOUNTER → 2023-09-17 09:47 | Outpatient (BNVA) | payer MEDICARE, SELFPAY | PROVIDERS: PCP Nurse Practitioner Family; Visit Provider Nurse Practitioner Family | DX: E11.65 Type 2 diabetes mellitus with hyperglycemia (principal); I10 Essential (primary) hypertension | CPT/HCPCS: 80053; 80061; 82607; 83036; 84443; 85025 ==

== ENCOUNTER → 2023-09-18 10:49 | Outpatient (BNVA) | payer MEDICARE, SELFPAY | PROVIDERS: PCP Nurse Practitioner Family; Visit Provider Anesthesiology Pain Medicine | DX: M54.50 Low back pain, unspecified (principal); G89.29 Other chronic pain | CPT/HCPCS: 72110; 99214 ==

== ENCOUNTER → 2023-10-06 14:12 | Outpatient (BNVA) | payer MEDICARE, SELFPAY | PROVIDERS: PCP Nurse Practitioner Family; Visit Provider Anesthesiology Pain Medicine | DX: M54.16 Radiculopathy, lumbar region (principal); M54.42 Lumbago with sciatica, left side | CPT/HCPCS: 64483; 64484; J1100; J3490 ==

== ENCOUNTER 2023-11-03 08:57 | Oncology outpatient (recurring) (ONCR) | payer MEDICARE, SELFPAY ==
[2023-11-03 09:14] LABS: Basophils # 0.1 10^3/uL (0.0-0.1); Basophils % 1.1 %; Eosinophils # 0.2 10^3/uL (0.0-0.8); Eosinophils % 3.4 %; Hematocrit 52.8 % (37-53); Lymphocytes % 35.6 %; Mean Corpuscular HGB Conc 33.5 g/dL (30-55); Mean Corpuscular Hemoglobin 29.2 pg (27-33); Mean Corpuscular Volume 87.1 fl (82-101); Mean Platelet Volume 9.5 fL (7.4-10.4); Monocytes # 0.5 10^3/uL (0.2-0.9); Neutrophils # 2.89 10^3/uL (1.8-7.7); Neutrophils % 51.4 %; Nucleated Red Blood Cells % 0 %; Platelet Count 264 10^3/cmm (157-399); Red Blood Count 6.06 10^6/uL (3.85-5.65); White Blood Count 5.62 10^3/uL (3.29-11.43)
[2023-11-03 09:35] LABS: Alanine Aminotransferase 31 U/L (0-41); Albumin Level 4.1 g/dL (3.5-5.2); Alkaline Phosphatase 58 U/L (40-130); Anion Gap 15.5 (5-19); Aspartate Amino Transferase 25 U/L (0-40); Blood Urea Nitrogen 14 mg/dL (8-23); Calcium 9.1 mg/dL (8.5-10.5); Carbon Dioxide 25 mmol/L (22-29); Chloride 101 mmol/L (98-107); Globulin 3.3 g/dL (1.3-4.6); Glomerular Filtration Rate 135.2 mL/min (90-130); Glucose 183 mg/dL (65-115); Osmolality Calculated 289 mOsm/kg (285-295); Potassium 4.5 mmol/L (3.5-5.1); Sodium 137 mmol/L (136-145); Total Bilirubin 0.4 mg/dL (0.15-1.2); Total Protein 7.4 g/dL (6.6-8.7)
[2023-11-03 11:44] VITALS: BP 128/74; PULSE 78; RESP 16; TEMP 36.6; O2SAT 96
== END 2023-11-19 23:59 | disposition home or self-care (01) ==
PROVIDERS: Nurse Practitioner Family; PCP Nurse Practitioner Family; Visit Provider Internal Medicine Medical Oncology
DX: D75.1 Secondary polycythemia (principal); D12.6 Benign neoplasm of colon, unspecified; R25.2 Cramp and spasm; Z87.891 Personal history of nicotine dependence; M54.50 Low back pain, unspecified; G89.29 Other chronic pain; Z79.899 Other long term (current) drug therapy
CPT/HCPCS: 36415; 80053; 83735; 85025; 99195; 99214

== ENCOUNTER → 2023-12-25 07:54 | Outpatient (BNVA) | payer MEDICARE, SELFPAY | PROVIDERS: PCP Nurse Practitioner Family; Visit Provider Nurse Practitioner Family | DX: L57.8 Other skin changes due to chronic exposure to nonionizing radiation (principal); L81.4 Other melanin hyperpigmentation; D22.4 Melanocytic nevi of scalp and neck; L57.0 Actinic keratosis; L21.8 Other seborrheic dermatitis; Z85.828 Personal history of other malignant neoplasm of skin | CPT/HCPCS: 17000; 99214 ==

== ENCOUNTER → 2024-01-09 09:28 | Outpatient (BNVA) | payer MEDICARE, SELFPAY | PROVIDERS: PCP Nurse Practitioner Family; Visit Provider Nurse Practitioner Family | DX: I25.10 Atherosclerotic heart disease of native coronary artery without angina pectoris (principal); I10 Essential (primary) hypertension; Z87.891 Personal history of nicotine dependence | CPT/HCPCS: 99214 ==

== ENCOUNTER 2024-01-15 13:03 | Outpatient (CLI) | payer MEDICARE, SELFPAY ==
--- NOTE | 2024-01-15 13:17 | CT_ITS ---
WS: [id number] CT LUMBAR SPINE TECHNIQUE: Noncontrast CT of the lumbar spine with coronal and sagittal reformatted images. CLINICAL INFORMATION: DISC DEGENERATION, WEAKNESS OF EXTREMITY, LUMBAR RADI COMPARISON: None. DLP: 2190.[address] scans at [facility] use at least one of these dose optimization techniques: automated e xposure control; mA and/or kV adjustment per patient size (includes targeted exams where dose is matc hed to clinical indication); or iterative reconstruction. FINDINGS: Mild lumbar curve. No acute compression. Disc space narrowing worse at L4-5 with vacuum disc phenomen on progressed since 2019. Adrenal glands are normal. Splenic artery calcification. Prior LEFT hemilam inectomy L4-5. L1-L2: Normal. L2-L3: RIGHT foraminal protrusion impinges the exiting RIGHT L2 nerve root with moderate RIGHT forami nal narrowing. LEFT foramen and spinal canal are patent. This appears progressed compared to previous . L3-L4: Mild annular bulging. Mild bilateral foraminal narrowing. Mild facet arthropathy. L4-L5: LEFT subarticular disc protrusion with moderate central canal stenosis. Impingement of the LEF T subarticular recess. Severe LEFT foraminal narrowing. Disc material measures 10 x 15 mm. AP by cran iocaudal. This appears new or progressed compared to previous. Mild RIGHT foraminal narrowing. Prior LEFT hemilaminectomy. Moderate facet arthropathy. L5-S1: Small central disc osteophyte protrusion. Slight contact of the LEFT S1 nerve root. Mild LEFT foraminal narrowing. Moderate facet arthropathy. Spinal canal is patent. Visualized pelvic bony structures: Normal. Paravertebral soft tissues: Normal. CT/CT lumbar spine wo con* [id number] IMPRESSION: 1. Mild lumbar curve. No acute compression. 2. Desiccation L4-5 with vacuum disc phenomenon progressed compared to 2019. 3. Large LEFT paracentral and subarticular protrusion L4-5 impinges the LEFT s ubarticular recess with moderate central canal stenosis. Impingement of juvencio ing LEFT L5 nerve root. This could be further evaluated with MRI. This appears progressed since 2019. Prior remote hemilaminectomy at this level. Severe LEFT L4-5 foraminal narrowing. Recommend spine surgery consultation. 4. RIGHT foraminal protrusion L2-3 appears progressed compared to previous
--- NOTE | 2024-01-15 13:30 | CT_ITS ---
WS: [id number] CT chest wo con [id number] HISTORY: R91.1 - Solitary pulmonary nodule TECHNIQUE: Axial imaging performed through the thorax. Coronal and sagittal reformats are submitted. All CT scans at [facility] use at least one of these dose optimization techniques: automated exposure control; mA and/or kV adjustment per patient size (includes targeted exams where dose is mat ched to clinical indication); or iterative reconstruction. CONTRAST: None DLP: 2190.38 mGy.cm COMPARISON: 12/02/2022, 05/04/2020 Lungs and central airway: Moderate pulmonary hyperexpansion. 4 mm LEFT upper lobe pulmonary nodule is stable with no increase in size. Stable RIGHT perifissural nodule measuring 5 mm. No new pulmonary m ass or nodule. No pneumonia. Pleura: Normal. No pleural effusion. Heart and pericardium: Normal size heart with no pericardial effusion. Mediastinum and irene: No mediastinum or hilar adenopathy. Vessels: Mild atherosclerosis thoracic aorta. No aneurysm. Normal size pulmonary artery. Chest wall and lower neck: No soft tissue masses. Upper abdomen: Visualized liver demonstrates moderate hepatic steatosis. Liver also appears enlarged. The adrenal glands are not included in their entirety. Osseous structures: Increase in thoracic kyphosis with degenerative spondylitic changes. CT/CT chest wo con [id number] IMPRESSION: 1. No interval change in the 4 mm nodule LEFT upper lobe. No additional imagin g necessary. Nodule was also present on 05/04/2020. 2. Benign stable RIGHT perifissural nodule. 3. No pneumonia. 4. Hepatic steatosis. 5. Mild atherosclerosis aorta.
== END 2024-01-15 13:04 | disposition home or self-care (01) ==
LOC: RAD 13:05
PROVIDERS: PCP Nurse Practitioner Family; Visit Provider Nurse Practitioner Family
DX: R91.8 Other nonspecific abnormal finding of lung field (principal); M51.36 Other intervertebral disc degeneration, lumbar region; M51.26 Other intervertebral disc displacement, lumbar region; M54.16 Radiculopathy, lumbar region; M48.061 Spinal stenosis, lumbar region without neurogenic claudication; M99.63 Osseous and subluxation stenosis of intervertebral foramina of lumbar region; M47.896 Other spondylosis, lumbar region; M47.898 Other spondylosis, sacral and sacrococcygeal region; K76.0 Fatty (change of) liver, not elsewhere classified
CPT/HCPCS: 71250; 72131

== ENCOUNTER → 2024-01-29 11:48 | Outpatient (BNVA) | payer MEDICARE, SELFPAY | PROVIDERS: PCP Nurse Practitioner Family; Visit Provider Nurse Practitioner Family | DX: E11.65 Type 2 diabetes mellitus with hyperglycemia (principal); I10 Essential (primary) hypertension; E55.9 Vitamin D deficiency, unspecified | CPT/HCPCS: 80053; 80061; 82306; 82607; 83036; 84443; 85025 ==

== ENCOUNTER 2024-02-04 12:13 | Oncology outpatient (recurring) (ONCR) | payer MEDICARE, SELFPAY ==
[2024-02-04 13:06] LABS: Basophils # 0.1 10^3/uL (0.0-0.1); Basophils % 0.7 %; Eosinophils # 0.1 10^3/uL (0.0-0.8); Eosinophils % 1.1 %; Hematocrit 53.1 % (37-53); Lymphocytes # 1.8 10^3/uL (0.8-4.8); Lymphocytes % 20.2 %; Mean Corpuscular HGB Conc 32.6 g/dL (30-55); Mean Corpuscular Hemoglobin 27.8 pg (27-33); Mean Corpuscular Volume 85.4 fl (82-101); Mean Platelet Volume 9.6 fL (7.4-10.4); Monocytes # 0.5 10^3/uL (0.2-0.9); Monocytes % 5.5 %; Neutrophils # 6.37 10^3/uL (1.8-7.7); Neutrophils % 71.9 %; Nucleated Red Blood Cells % 0 %; Platelet Count 253 10^3/cmm (157-399); Red Blood Count 6.22 10^6/uL (3.85-5.65); Red Cell Distribution Width 13.5 % (12.1-15.1); White Blood Count 8.86 10^3/uL (3.29-11.43)
[2024-02-04 13:24] LABS: Alanine Aminotransferase 27 U/L (0-41); Albumin Level 4.2 g/dL (3.5-5.2); Alkaline Phosphatase 64 U/L (40-130); Aspartate Amino Transferase 20 U/L (0-40); Blood Urea Nitrogen 22 mg/dL (8-23); Calcium 10.1 mg/dL (8.5-10.5); Carbon Dioxide 25 mmol/L (22-29); Chloride 100 mmol/L (98-107); Creatinine Clr Calc Pharmacy 125.3995; Globulin 3.1 g/dL (1.3-4.6); Glomerular Filtration Rate 113.2 mL/min (90-130); Glucose 184 mg/dL (65-115); Magnesium 1.9 mg/dL (1.7-2.3); Osmolality Calculated 290 mOsm/kg (285-295); Sodium 136 mmol/L (136-145); Total Bilirubin 0.4 mg/dL (0.15-1.2); Total Protein 7.3 g/dL (6.6-8.7)
[2024-02-04 13:27] LABS: Anion Gap 15.7 (5-19); Potassium 4.7 mmol/L (3.5-5.1)
== END 2024-02-19 23:59 | disposition home or self-care (01) ==
PROVIDERS: Nurse Practitioner; PCP Nurse Practitioner Family; Visit Provider Internal Medicine Medical Oncology
DX: D75.1 Secondary polycythemia (principal); Z87.891 Personal history of nicotine dependence; Z79.899 Other long term (current) drug therapy; M25.551 Pain in right hip; M79.604 Pain in right leg; M79.671 Pain in right foot; Z85.828 Personal history of other malignant neoplasm of skin; R91.1 Solitary pulmonary nodule
CPT/HCPCS: 36415; 80053; 83735; 85025; 99195; 99214

== ENCOUNTER → 2024-02-09 13:01 | Outpatient (BNVA) | payer MEDICARE, SELFPAY | PROVIDERS: PCP Nurse Practitioner Family; Visit Provider Nurse Practitioner Family | DX: J32.9 Chronic sinusitis, unspecified (principal) | CPT/HCPCS: 70220 ==

== ENCOUNTER 2024-02-23 14:58 | Outpatient (CLI) | payer MEDICARE, SELFPAY ==
[2024-02-23] MEDS: iohexol 350 mg/mL 500 mL Btl (per mL) IV (15:16)
--- NOTE | 2024-02-23 15:30 | CT_ITS ---
WS: [id number] CT SINUSES TECHNIQUE: Contrast-enhanced CT of the paranasal sinuses with coronal and sagittal reformatted images . CLINICAL INFORMATION: J32.9 - Chronic sinusitis, unspecified COMPARISON: None. DLP: [address] scans at [facility] use at least one of these dose optimization techniques: automated e xposure control; mA and/or kV adjustment per patient size (includes targeted exams where dose is matc hed to clinical indication); or iterative reconstruction. FINDINGS: Mild S-shaped nasal septal deviation with a rightward and leftward directed spurs. Frontal sinuses ar e well aerated. Retention cyst or polyp LEFT maxillary sinus measuring 1.7 x 1.5 cm. Mild polypoid mu cosal thickening RIGHT inferior maxillary sinus. Trace mucosal thickening in the ethmoid air cells. F rontal sinuses are well aerated. Sphenoid sinuses are well aerated. Sphenoid ostia are patent. Mild n arrowing of the LEFT greater than RIGHT ostiomeatal units which remain patent. Normal posterior nasopharynx. Normal parapharyngeal fat. Mastoid air cells are well aerated. Vascular calcification. No other acute findings. CT/CT sinus w con [id number] IMPRESSION: 1. Mild S-shaped nasal septal deviation with a small rightward and leftward di rected spur. 2. Paranasal sinuses are well aerated. 3. 1.7 x 1.5 cm retention cyst or polyp in the LEFT lateral maxillary sinus. 4. Slight polypoid mucosal thickening in the inferior maxillary sinuses bilate rally. 5. Mild narrowing of the ostiomeatal units which remain patent. 6. Trace mucosal thickening in the ethmoid air cells. 7. Mastoid air cells are well aerated.
== END 2024-02-23 14:59 | disposition home or self-care (01) ==
LOC: RAD 14:58
PROVIDERS: PCP Nurse Practitioner Family; Visit Provider Nurse Practitioner Family
DX: J32.9 Chronic sinusitis, unspecified (principal); J34.89 Other specified disorders of nose and nasal sinuses; J34.1 Cyst and mucocele of nose and nasal sinus
CPT/HCPCS: 70487

== ENCOUNTER 2024-03-17 13:19 | Oncology outpatient (recurring) (ONCR) | payer MEDICARE, SELFPAY ==
[2024-03-17 14:32] LABS: Basophils # 0.1 10^3/uL (0.0-0.1); Basophils % 1.1 %; Eosinophils # 0.1 10^3/uL (0.0-0.8); Eosinophils % 1.7 %; Lymphocytes # 2.3 10^3/uL (0.8-4.8); Lymphocytes % 35.9 %; Mean Corpuscular HGB Conc 32.5 g/dL (30-55); Mean Corpuscular Hemoglobin 27.2 pg (27-33); Mean Corpuscular Volume 83.5 fl (82-101); Mean Platelet Volume 9.5 fL (7.4-10.4); Monocytes # 0.6 10^3/uL (0.2-0.9); Monocytes % 8.9 %; Neutrophils # 3.36 10^3/uL (1.8-7.7); Neutrophils % 52.2 %; Nucleated Red Blood Cells % 0 %; Platelet Count 286 10^3/cmm (157-399); Red Blood Count 6.11 10^6/uL (3.85-5.65); Red Cell Distribution Width 13.7 % (12.1-15.1); White Blood Count 6.43 10^3/uL (3.29-11.43)
[2024-03-17 15:20] VITALS: BP 131/72; PULSE 65; RESP 18; TEMP 36.8; O2SAT 95
== END 2024-03-20 23:59 | disposition home or self-care (01) ==
LOC: ONCMED 13:19
PROVIDERS: PCP Nurse Practitioner Family; Visit Provider Internal Medicine
DX: D75.1 Secondary polycythemia (principal)
CPT/HCPCS: 36415; 85025; 99195

== ENCOUNTER 2024-04-12 09:03 | Oncology outpatient (recurring) (ONCR) | payer MEDICARE, SELFPAY ==
[2024-04-12 10:00] LABS: Basophils # 0.1 10^3/uL (0.0-0.1); Basophils % 1.1 %; Eosinophils # 0.1 10^3/uL (0.0-0.8); Eosinophils % 1.8 %; Hematocrit 48.3 % (37-53); Lymphocytes # 1.8 10^3/uL (0.8-4.8); Lymphocytes % 32.4 %; Mean Corpuscular HGB Conc 32.1 g/dL (30-55); Mean Corpuscular Hemoglobin 26.2 pg (27-33); Mean Corpuscular Volume 81.6 fl (82-101); Mean Platelet Volume 9.3 fL (7.4-10.4); Monocytes # 0.5 10^3/uL (0.2-0.9); Monocytes % 8.3 %; Neutrophils % 56.2 %; Nucleated Red Blood Cells % 0 %; Platelet Count 302 10^3/cmm (157-399); Red Blood Count 5.92 10^6/uL (3.85-5.65); Red Cell Distribution Width 13.6 % (12.1-15.1); White Blood Count 5.68 10^3/uL (3.29-11.43)
== END 2024-04-20 23:59 | disposition home or self-care (01) ==
LOC: ONCMED 09:03
PROVIDERS: Nurse Practitioner; PCP Nurse Practitioner Family; Visit Provider Internal Medicine
DX: D75.1 Secondary polycythemia; Z79.899 Other long term (current) drug therapy
CPT/HCPCS: 36415; 85025; 99195

== ENCOUNTER 2024-05-12 09:05 | Oncology outpatient (recurring) (ONCR) | payer MEDICARE, SELFPAY ==
[2024-05-12 09:34] LABS: Basophils # 0.1 10^3/uL (0.0-0.1); Basophils % 1.2 %; Eosinophils # 0.2 10^3/uL (0.0-0.8); Eosinophils % 2.7 %; Hematocrit 45.7 % (37-53); Lymphocytes # 1.8 10^3/uL (0.8-4.8); Lymphocytes % 32.1 %; Mean Corpuscular HGB Conc 31.7 g/dL (30-55); Mean Corpuscular Hemoglobin 25.2 pg (27-33); Mean Corpuscular Volume 79.5 fl (82-101); Mean Platelet Volume 9.3 fL (7.4-10.4); Monocytes # 0.5 10^3/uL (0.2-0.9); Monocytes % 8.9 %; Neutrophils % 54.9 %; Nucleated Red Blood Cells % 0 %; Platelet Count 304 10^3/cmm (157-399); Red Blood Count 5.75 10^6/uL (3.85-5.65); Red Cell Distribution Width 13.7 % (12.1-15.1); White Blood Count 5.64 10^3/uL (3.29-11.43)
[2024-05-12 09:52] LABS: Alanine Aminotransferase 22 U/L (0-41); Albumin Level 3.9 g/dL (3.5-5.2); Alkaline Phosphatase 60 U/L (40-130); Anion Gap 15.2 (5-19); Aspartate Amino Transferase 21 U/L (0-40); Blood Urea Nitrogen 10 mg/dL (8-23); Calcium 9.5 mg/dL (8.5-10.5); Carbon Dioxide 25 mmol/L (22-29); Chloride 102 mmol/L (98-107); Globulin 3.2 g/dL (1.3-4.6); Glomerular Filtration Rate 166.4 mL/min (90-130); Glucose 143 mg/dL (65-115); Osmolality Calculated 288 mOsm/kg (285-295); Potassium 4.2 mmol/L (3.5-5.1); Sodium 138 mmol/L (136-145); Total Bilirubin 0.5 mg/dL (0.15-1.2); Total Protein 7.1 g/dL (6.6-8.7)
[2024-05-12 11:22] LABS: Erythrocyte Sedimentation Rate 26 mm/hr (0-10)
[2024-05-12 11:31] LABS: Ferritin 23 ng/mL (30-400); Iron 40 ug/dL (59-158); Lactate Dehydrogenase 135 U/L (135-225); Percent Saturation 8.8 % (20-50); Total Iron Binding Capacity 452 mcg/dl; Unsaturated Iron Binding 412 ug/dL (112-347)
[2024-05-24 12:14] LABS: Erythropoietin 24.7 mIU/mL (2.6-18.5)
== END 2024-05-21 23:59 | disposition home or self-care (01) ==
PROVIDERS: Nurse Practitioner; PCP Nurse Practitioner Family; Visit Provider Internal Medicine
DX: D75.1 Secondary polycythemia (principal); E11.65 Type 2 diabetes mellitus with hyperglycemia; G47.33 Obstructive sleep apnea (adult) (pediatric); G93.32 Myalgic encephalomyelitis/chronic fatigue syndrome; E66.9 Obesity, unspecified; Z68.42 Body mass index [BMI] 45.0-49.9, adult; Z87.891 Personal history of nicotine dependence; Z85.828 Personal history of other malignant neoplasm of skin; Z99.89 Dependence on other enabling machines and devices
CPT/HCPCS: 36415; 80053; 82668; 82728; 83540; 83550; 83615; 85025; 85651; 86140; 99213

== ENCOUNTER 2024-05-28 10:47 | Outpatient (CLI) | payer MEDICARE, SELFPAY ==
--- NOTE | 2024-05-28 10:54 | CTR_ITS ---
PROCEDURE INFORMATION: Exam: CT Neck With Contrast Exam date and time: 05/28/2024 11:23 AM Age: 64 years old Clinical indication: Pain; Other: Ear; Additional info: Otalgia, right ear TECHNIQUE: Imaging protocol: Computed tomography of the neck with contrast. Radiation optimization: All CT scans at this facility use at least one of these dose optimization techniques: automated exposure control; mA and/or kV adjustment per patient size (includes targeted exams where dose is matched to clinical indication); or iterative reconstruction. Contrast material: OMNI 350; Contrast volume: 100 ml; Contrast route: INTRAVENOUS (IV); COMPARISON: No relevant prior studies available. RADIATION DOSE METRICS: Total DLP (mGy-cm): 288.54 FINDINGS: Paranasal sinuses: There are mucous retention cysts in the maxillary sinuses. No fluid in the visible portions of the paranasal sinuses. Mastoid air cells: The mastoid air cells are clear. Salivary glands: The parotid glands are normal. The submandibular glands are normal. Pharynx: The nasopharynx is unremarkable. There is no significant pharyngeal tonsillar enlargement. The oropharynx is unremarkable. There is no significant palatine tonsillar enlargement. The hypopharynx is unremarkable. There is no significant lingual tonsillar enlargement. Larynx: The larynx and epiglottis are normal. Thyroid: The thyroid gland is unremarkable. Trachea: The visible portion of the trachea is normal. Lungs: Mild nonspecific ground-glass opacity and air trapping in the lung apices. Lymph nodes: There is no cervical or supraclavicular lymphadenopathy. Vasculature: There is mild atherosclerotic disease of the left internal carotid artery origin. Internal jugular veins are patent. Vertebral arteries are patent. Bones/joints: Temporomandibular joints are unremarkable. There is mild degenerative disc disease in the cervical spine. Skull base is unremarkable. Middle ears are clear. Soft tissues: There is no fluid or edema in the retropharyngeal space. Musculature is unremarkable. No edema. CT/CT neck w con* [id number] IMPRESSION: 1. No cause for the patient's symptoms is identified. 2. Incidental findings above.
[2024-05-28] MEDS: iohexol 350 mg/mL 500 mL Btl (per mL) IV (11:38)
== END 2024-05-28 10:48 | disposition home or self-care (01) ==
LOC: RAD 10:49
PROVIDERS: PCP Nurse Practitioner Family; Visit Provider Specialist
DX: J32.8 Other chronic sinusitis (principal); H92.01 Otalgia, right ear; J34.1 Cyst and mucocele of nose and nasal sinus; R91.8 Other nonspecific abnormal finding of lung field; I65.22 Occlusion and stenosis of left carotid artery; M50.30 Other cervical disc degeneration, unspecified cervical region
CPT/HCPCS: 70491

== ENCOUNTER → 2024-06-07 13:18 | Outpatient (BNVA) | payer MEDICARE, SELFPAY | PROVIDERS: PCP Nurse Practitioner Family; Visit Provider Nurse Practitioner Family | DX: E11.65 Type 2 diabetes mellitus with hyperglycemia (principal); Z12.5 Encounter for screening for malignant neoplasm of prostate; I10 Essential (primary) hypertension; E78.2 Mixed hyperlipidemia; E55.9 Vitamin D deficiency, unspecified; F51.01 Primary insomnia | CPT/HCPCS: 80061; 83036; 83735; G0103 ==

== ENCOUNTER → 2024-06-23 08:29 | Outpatient (BNVA) | payer MEDICARE, SELFPAY | PROVIDERS: PCP Nurse Practitioner Family; Visit Provider Nurse Practitioner Family | DX: L81.4 Other melanin hyperpigmentation (principal); D22.4 Melanocytic nevi of scalp and neck; Z08 Encounter for follow-up examination after completed treatment for malignant neoplasm; Z85.828 Personal history of other malignant neoplasm of skin; L57.0 Actinic keratosis | CPT/HCPCS: 17000; 99214 ==

== ENCOUNTER 2024-07-07 11:55 | Oncology outpatient (recurring) (ONCR) | payer MEDICARE, SELFPAY ==
[2024-07-07 13:02] LABS: Basophils # 0.1 10^3/uL (0.0-0.1); Eosinophils # 0.1 10^3/uL (0.0-0.8); Eosinophils % 2.2 %; Lymphocytes # 1.9 10^3/uL (0.8-4.8); Lymphocytes % 38.4 %; Mean Corpuscular HGB Conc 31.4 g/dL (30-55); Mean Corpuscular Hemoglobin 23.9 pg (27-33); Mean Corpuscular Volume 76.1 fl (82-101); Mean Platelet Volume 9.4 fL (7.4-10.4); Monocytes # 0.5 10^3/uL (0.2-0.9); Monocytes % 9.3 %; Neutrophils # 2.46 10^3/uL (1.8-7.7); Neutrophils % 48.9 %; Nucleated Red Blood Cells % 0 %; Platelet Count 290 10^3/cmm (157-399); Red Blood Count 5.78 10^6/uL (3.85-5.65); Red Cell Distribution Width 15.9 % (12.1-15.1); White Blood Count 5.03 10^3/uL (3.29-11.43)
[2024-07-07 13:10] LABS: Erythrocyte Sedimentation Rate 33 mm/hr (0-10)
[2024-07-07 13:27] LABS: Alanine Aminotransferase 23 U/L (0-41); Albumin Level 3.9 g/dL (3.5-5.2); Alkaline Phosphatase 70 U/L (40-130); Anion Gap 15.2 (5-19); Aspartate Amino Transferase 25 U/L (0-40); Blood Urea Nitrogen 14 mg/dL (8-23); C Reactive Protein 4.9 mg/L (0.0-4.9); Calcium 9.4 mg/dL (8.5-10.5); Carbon Dioxide 24 mmol/L (22-29); Chloride 102 mmol/L (98-107); Ferritin 17 ng/mL (30-400); Glomerular Filtration Rate 134.8 mL/min (90-130); Glucose 134 mg/dL (65-115); Iron 37 ug/dL (59-158); Lactate Dehydrogenase 146 U/L (135-225); Osmolality Calculated 286 mOsm/kg (285-295); Percent Saturation 8.1 % (20-50); Potassium 4.2 mmol/L (3.5-5.1); Sodium 137 mmol/L (136-145); Total Bilirubin 0.3 mg/dL (0.15-1.2); Total Iron Binding Capacity 454 mcg/dl; Total Protein 6.9 g/dL (6.6-8.7); Unsaturated Iron Binding 417 ug/dL (112-347)
[2024-07-13 11:59] LABS: Erythropoietin 26.3 mIU/mL (2.6-18.5)
== END 2024-07-19 23:59 | disposition home or self-care (01) ==
PROVIDERS: PCP Nurse Practitioner Family; Visit Provider Internal Medicine
DX: D75.1 Secondary polycythemia (principal); E11.65 Type 2 diabetes mellitus with hyperglycemia; G47.33 Obstructive sleep apnea (adult) (pediatric); Z99.89 Dependence on other enabling machines and devices; E66.9 Obesity, unspecified; Z68.42 Body mass index [BMI] 45.0-49.9, adult; M79.671 Pain in right foot; M25.551 Pain in right hip; F44.89 Other dissociative and conversion disorders; M79.604 Pain in right leg; Z79.891 Long term (current) use of opiate analgesic; Z85.828 Personal history of other malignant neoplasm of skin
CPT/HCPCS: 80053; 82668; 82728; 83540; 83550; 83615; 84550; 85025; 85651; 86140; 99213

== ENCOUNTER → 2024-07-12 16:26 | Outpatient (BNVA) | payer MEDICARE, SELFPAY | PROVIDERS: PCP Nurse Practitioner Family; Visit Provider Internal Medicine Cardiovascular Disease | DX: R07.9 Chest pain, unspecified (principal) | CPT/HCPCS: 93005; 99214 ==

== ENCOUNTER → 2024-07-13 08:53 | Outpatient (BNVA) | payer MEDICARE, SELFPAY | PROVIDERS: PCP Nurse Practitioner Family; Visit Provider Nurse Practitioner Family | DX: L21.8 Other seborrheic dermatitis (principal); L57.8 Other skin changes due to chronic exposure to nonionizing radiation; L81.4 Other melanin hyperpigmentation; D22.4 Melanocytic nevi of scalp and neck; S60.052A Contusion of left little finger without damage to nail, initial encounter; X58.XXXA Exposure to other specified factors, initial encounter; Z08 Encounter for follow-up examination after completed treatment for malignant neoplasm; Z85.828 Personal history of other malignant neoplasm of skin; L57.0 Actinic keratosis | CPT/HCPCS: 17000; 99214 ==

== ENCOUNTER 2024-10-06 12:01 | Oncology outpatient (recurring) (ONCR) | payer MEDICARE, SELFPAY ==
[2024-10-06 12:19] LABS: Basophils # 0.1 10^3/uL (0.0-0.1); Basophils % 0.9 %; Eosinophils # 0.1 10^3/uL (0.0-0.8); Hematocrit 47.5 % (37-53); Lymphocytes # 1.9 10^3/uL (0.8-4.8); Lymphocytes % 31.9 %; Mean Corpuscular HGB Conc 31.8 g/dL (30-55); Mean Corpuscular Hemoglobin 24.1 pg (27-33); Mean Corpuscular Volume 75.8 fl (82-101); Mean Platelet Volume 8.9 fL (7.4-10.4); Monocytes # 0.5 10^3/uL (0.2-0.9); Monocytes % 8.9 %; Neutrophils # 3.29 10^3/uL (1.8-7.7); Neutrophils % 56.1 %; Nucleated Red Blood Cells % 0 %; Platelet Count 295 10^3/cmm (157-399); Red Blood Count 6.27 10^6/uL (3.85-5.65); White Blood Count 5.86 10^3/uL (3.29-11.43)
[2024-10-06 12:21] LABS: Erythrocyte Sedimentation Rate 31 mm/hr (0-10)
[2024-10-06 12:36] LABS: Alanine Aminotransferase 24 U/L (0-41); Alkaline Phosphatase 62 U/L (40-130); Anion Gap 15.5 (5-19); Aspartate Amino Transferase 27 U/L (0-40); Blood Urea Nitrogen 16 mg/dL (8-23); Calcium 9.5 mg/dL (8.5-10.5); Carbon Dioxide 24 mmol/L (22-29); Chloride 102 mmol/L (98-107); Globulin 3.5 g/dL (1.3-4.6); Glomerular Filtration Rate 96.7 mL/min (90-130); Glucose 101 mg/dL (65-115); Osmolality Calculated 285 mOsm/kg (285-295); Potassium 4.5 mmol/L (3.5-5.1); Sodium 137 mmol/L (136-145); Total Bilirubin 0.3 mg/dL (0.15-1.2); Total Protein 7.5 g/dL (6.6-8.7); Uric Acid 4.7 mg/dL (3.4-7.0)
[2024-10-06 13:12] LABS: Lactate Dehydrogenase 156 U/L (135-225)
[2024-10-06 14:48] LABS: Iron 41 ug/dL (59-158); Percent Saturation 8.5 % (20-50); Total Iron Binding Capacity 480 mcg/dl; Unsaturated Iron Binding 439 ug/dL (112-347)
[2024-10-11 09:54] LABS: Erythropoietin 19.6 mIU/mL (2.6-18.5)
== END 2024-10-18 23:59 | disposition home or self-care (01) ==
PROVIDERS: Internal Medicine; PCP Nurse Practitioner Family; Visit Provider Nurse Practitioner Family
DX: D75.1 Secondary polycythemia (principal); E55.9 Vitamin D deficiency, unspecified; Z87.891 Personal history of nicotine dependence; G47.33 Obstructive sleep apnea (adult) (pediatric); R03.0 Elevated blood-pressure reading, without diagnosis of hypertension
CPT/HCPCS: 36415; 80053; 82668; 83540; 83550; 83615; 84550; 85025; 85651; 86140; 99214

== ENCOUNTER 2025-01-05 08:51 | Oncology outpatient (recurring) (ONCR) | payer MEDICARE, SELFPAY ==
[2025-01-05 09:21] LABS: Hematocrit 49.3 % (37-53); Hemoglobin 16.10 g/dL (11.27-16.99); Mean Corpuscular HGB Conc 32.7 g/dL (30-55); Mean Corpuscular Hemoglobin 25.3 pg (27-33); Mean Corpuscular Volume 77.4 fl (82-101); Nucleated Red Blood Cells % 0 %; Platelet Count 294 10^3/cmm (157-399); Red Blood Count 6.37 10^6/uL (3.85-5.65); White Blood Count 5.40 10^3/uL (3.29-11.43)
[2025-01-05 09:38] LABS: Alanine Aminotransferase 21 U/L (0-41); Albumin Level 3.8 g/dL (3.5-5.2); Alkaline Phosphatase 56 U/L (40-130); Anion Gap 16.4 (5-19); Aspartate Amino Transferase 20 U/L (0-40); Blood Urea Nitrogen 16 mg/dL (8-23); Calcium 9.4 mg/dL (8.5-10.5); Carbon Dioxide 25 mmol/L (22-29); Chloride 101 mmol/L (98-107); Creatinine Clr Calc Pharmacy 119.1385; Globulin 3.5 g/dL (1.3-4.6); Glucose 136 mg/dL (65-115); Iron 80 ug/dL (59-158); Osmolality Calculated 289 mOsm/kg (285-295); Potassium 4.4 mmol/L (3.5-5.1); Sodium 138 mmol/L (136-145); Total Iron Binding Capacity 415 mcg/dl; Total Protein 7.3 g/dL (6.6-8.7); Unsaturated Iron Binding 335 ug/dL (112-347)
[2025-01-05 12:15] VITALS: BP 124/72; PULSE 84; RESP 17; TEMP 36.6; O2SAT 96
== END 2025-01-18 23:59 | disposition home or self-care (01) ==
PROVIDERS: PCP Nurse Practitioner Family; Visit Provider Nurse Practitioner Family
DX: D75.1 Secondary polycythemia (principal); Z87.891 Personal history of nicotine dependence; Z99.89 Dependence on other enabling machines and devices; G47.33 Obstructive sleep apnea (adult) (pediatric); E66.9 Obesity, unspecified; Z68.41 Body mass index [BMI] 40.0-44.9, adult; R53.82 Chronic fatigue, unspecified
CPT/HCPCS: 36415; 80053; 83540; 83550; 85025; 99195; 99214

== ENCOUNTER → 2025-01-11 11:35 | Outpatient (BNVA) | payer MEDICARE, SELFPAY | PROVIDERS: PCP Nurse Practitioner Family; Visit Provider Nurse Practitioner Family | DX: E11.65 Type 2 diabetes mellitus with hyperglycemia (principal); Z79.891 Long term (current) use of opiate analgesic | CPT/HCPCS: 80053; 80061; 82306; 82607; 83036; 84443 ==

== ENCOUNTER 2025-02-01 07:54 | Outpatient (CLI) | payer MEDICARE, SELFPAY ==
--- NOTE | 2025-02-01 | ECG_ITS ---
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 Interpretive Statements Procedure: A total of 0.4 mg of Lexiscan was infused over 20 seconds. The stress phase was continued for a total of 5 minutes. Sestamibi was injected 20 seconds after the Lexiscan infusion. Findings: The baseline blood pressure was 143/75 with a heart rate of 65 bpm. The lowest blood pressure after Lexiscan injection was 124/76 with an increase in heart rate to 99 bpm. In recovery the patient's blood pressure was 146/80 with a heart rate of 80 bpm. The baseline EKG showed normal sinus rhythm with first-degree AV block and right bundle branch block. There were no ST-T wave changes during stress test. Conclusion: 1. Normal EKG response to Lexiscan infusion 2. No Lexiscan induced chest pain or cardiac arrhythmia. 3. Normal blood pressure and heart rate response. 4. Nuclear myocardial perfusion scan pending; see separate report. Electronically Signed On 02-01-2025 22:14:33 CDT by Mitchell Padilla M.D. [email or web address]
[2025-02-01 08:16] VITALS: BMI 40.8
--- NOTE | 2025-02-01 08:19 | NMCV_ITS ---
NM conor perf SPECT r/s* [id number] Dino Méndez Age: 64 Gender: M : 1960 Exam Date: 02/01/2025 08:47 Ordering Phys: Mervin Justin MD ([email or web address]) Technologist: JOSE ELIAS Forrester Exam Location: [facility] [place] Indications: cp STRESS TEST [facility] IMAGE PROTOCOL Rest/Stress 1 Lexiscan Day Radiopharmaceutical Dose (mCi) Administration Site Administered by Rest: Tc-99m 10.8 IV JOSE ELIAS Oakes Sestamibi Stress:Tc-99m 32.6 IV JOSE ELIAS Forrester Sestamijani Rest: 01-Feb-2025 60 Discovery 630 Stress: 01-Feb-2025 30 Discovery 630 0.4mg Lexiscan. Images obtained in supine and prone position. SPECT RESULTS Technical Quality: Good Raw Data Analysis: Normal Image Corrections: No attenuation or motion correction applied Summed Stress Score: 8 Summed Rest Score: 0 Summed Difference Score: 8 PERFUSION FINDINGS There is a medium sized area of moderately reduced tracer counts in the apical cap and apical septal wall regions that reverses on the resting images consistent with reversible ischemia. FUNCTIONAL RESULTS (calculated via Gated SPECT) Stress Image LV EF (%): 72 Stress EDV (mL):104 TID: 1.16 Stress ESV (mL):29 FUNCTIONAL FINDINGS: There is normal left ventricular systolic function. EF 72%. IMPRESSIONS Myocardial perfusion imaging is abnormal with evidence of a medium sized area of moderate apical cap and apical septal ischemia. There is normal left ventricular systolic function. EF 72%. Mitchell Padilla MD, FACC (Electronically Signed) Final Date: 01 February 2025 13:18 S
[2025-02-01 09:42] VITALS: BP 146/80; PULSE 77
== END 2025-02-01 07:55 | disposition home or self-care (01) ==
LOC: CDL 07:58
PROVIDERS: PCP Nurse Practitioner Family; Visit Provider Internal Medicine Cardiovascular Disease
DX: R07.9 Chest pain, unspecified (principal); I25.9 Chronic ischemic heart disease, unspecified
CPT/HCPCS: 36415; 78452; 93017; 96374; A9500; J2785

== ENCOUNTER 2025-02-02 10:40 | Oncology outpatient (recurring) (ONCR) | payer MEDICARE, SELFPAY ==
[2025-02-02 11:13] LABS: Hematocrit 46.4 % (37-53); Hemoglobin 15.40 g/dL (11.27-16.99); Mean Corpuscular HGB Conc 33.2 g/dL (30-55); Mean Corpuscular Hemoglobin 26.0 pg (27-33); Mean Corpuscular Volume 78.2 fl (82-101); Nucleated Red Blood Cells % 0 %; Platelet Count 260 10^3/cmm (157-399); Red Blood Count 5.93 10^6/uL (3.85-5.65); White Blood Count 5.58 10^3/uL (3.29-11.43)
[2025-02-02 11:31] LABS: Alanine Aminotransferase 20 U/L (0-41); Albumin Level 4.0 g/dL (3.5-5.2); Alkaline Phosphatase 61 U/L (40-130); Anion Gap 17.6 (5-19); Aspartate Amino Transferase 21 U/L (0-40); Blood Urea Nitrogen 17 mg/dL (8-23); Calcium 9.7 mg/dL (8.5-10.5); Carbon Dioxide 22 mmol/L (22-29); Chloride 100 mmol/L (98-107); Globulin 3.4 g/dL (1.3-4.6); Glucose 156 mg/dL (65-115); Iron 45 ug/dL (59-158); Osmolality Calculated 285 mOsm/kg (285-295); Potassium 4.6 mmol/L (3.5-5.1); Sodium 135 mmol/L (136-145); Total Iron Binding Capacity 446 mcg/dl; Total Protein 7.4 g/dL (6.6-8.7); Unsaturated Iron Binding 401 ug/dL (112-347)
[2025-02-02 13:59] VITALS: BP 142/78; PULSE 85; RESP 17; TEMP 36.9; O2SAT 92
== END 2025-02-18 23:59 | disposition home or self-care (01) ==
LOC: ONCMED 10:41
PROVIDERS: Nurse Practitioner; PCP Nurse Practitioner Family; Visit Provider Nurse Practitioner Family
DX: D75.1 Secondary polycythemia (principal)
CPT/HCPCS: 36415; 80053; 83540; 83550; 85025; 99195

== ENCOUNTER → 2025-02-08 07:57 | Outpatient (BNVA) | payer MEDICARE, SELFPAY | PROVIDERS: PCP Nurse Practitioner Family; Visit Provider Nurse Practitioner Family | DX: L57.8 Other skin changes due to chronic exposure to nonionizing radiation (principal); D18.01 Hemangioma of skin and subcutaneous tissue; L81.4 Other melanin hyperpigmentation; Z08 Encounter for follow-up examination after completed treatment for malignant neoplasm; Z85.828 Personal history of other malignant neoplasm of skin; L57.0 Actinic keratosis | CPT/HCPCS: 17000; 99213 ==

== ENCOUNTER → 2025-02-22 13:21 | Outpatient (BNVA) | payer MEDICARE, SELFPAY | PROVIDERS: PCP Nurse Practitioner Family; Visit Provider Nurse Practitioner Family | DX: I25.10 Atherosclerotic heart disease of native coronary artery without angina pectoris (principal); I10 Essential (primary) hypertension; E11.65 Type 2 diabetes mellitus with hyperglycemia; D75.1 Secondary polycythemia; E66.9 Obesity, unspecified; Z68.41 Body mass index [BMI] 40.0-44.9, adult; Z79.84 Long term (current) use of oral hypoglycemic drugs; Z79.85 Long-term (current) use of injectable non-insulin antidiabetic drugs; Z87.891 Personal history of nicotine dependence; Z79.4 Long term (current) use of insulin | CPT/HCPCS: 99214 ==

== ENCOUNTER 2025-03-07 07:19 | Outpatient (CLI) | payer MEDICARE, SELFPAY ==
[2025-03-07] VITALS (22 sets, daily range): BP systolic 124–159; BP diastolic 65–86; PULSE 68–87; RESP 14–20; TEMP 36.6; O2SAT 90–94; BMI 40.8
--- NOTE | 2025-03-07 07:35 | XACV_ITS ---
Exam Room: 2 Ht: 175 cm Wt: 126 kg BSA: 2.53 m2 Gender: Male : 1960 Any Known Allergies: Penicillins Exam Priority: Routine Procedure(s): Procedure Description: Diagnostic procedure Procedure Description: Left Heart Catheterization Procedure Description: Coronary Angiography Procedure Description: Pressure Wire Nhan MONROY; Diagnostic Cath Status: Elective Diagnostic Findings * The left main is a medium caliber vessel with no significant stenotic lesions. * The Left anterior descending artery is a medium caliber vessel which was found to be totally occluded after the first septal perennial house manager. The first diagonal branch was found to be a medium caliber vessel with a mild diffuse disease. * The left circumflex artery is a medium caliber vessel with minimal intimal regularities proximally. The first obtuse marginal branch is a relatively small caliber vessel with a mild to moderate diffuse disease. The second obtuse marginal artery is medium caliber vessel which was found to have a proximal 60 to 70% lesion involving the ostium. The mid and distal circumflex artery was found to have minimal intimal irregularities. * The right coronary artery is a medium caliber dominant vessel which was found to have 20 to 30% diffuse eccentric narrowing with calcification in the proximal to the mid segment. The distal artery and the terminal bifurcation branches are found to have minimal intimal irregularities. PCI Status: Elective Interventional Findings * Procedure detail: We engaged left main artery with XB 3.0 guide catheter. IV heparin was administered to maintain anticoagulation. iFR wire was used to cross the stenosis. iFR value of 0.97 was obtained. As this was non-ischemic, no further interventions were needed. Patient left the laboratory tester in a stable condition. . Conclusions 1. This 64 old white male with history of atherosclerotic heart disease and a previous NM, presented with increasing shortness of breath and fatigue. The Myocardial perfusion imaging was found to be abnormal, suggesting moderate area of ischemia in the inferior wall region. To further evaluate the coronary status, a cardiac catheterization was recommended. Patient underwent left heart catheterization with left and right coronary angiogram today. The findings are as follows. 2. No severe left main disease. The left and descending artery is totally occluded after the first septal perennial house manager. The first diagonal branch was found to have mild diffuse disease. The second OM branch of the circumflex artery was found to have proximal 60 to 70% lesion, involving the ostium. The rest of the circumflex and the right coronary artery were found to have mild diffuse disease. LVEDP of 15 mmHg.. 3. mild diffuse disease. 4. Based on the angiogram findings, it was thought to be appropriate to consider IFR of the obtuse marginal artery lesion. I reviewed and discussed the cardiac catheterization data with Dr. Bruno who concurred with this plan. Dr. Bruno took over further management this patient at this point. . 5. iFR was non-ischemic. Medical therapy. Recommendations * Aggressive medical therapy for coronary artery disease. * Outpatient cardiology follow up in 2 weeks. Interventional RX Recommendation: medical therapy and/or counseling Anticoagulation: Heparin LV EDP: 15 mmHg Left Ventriculography Findings: * The LV gram was not performed because of the concern about the dye overload. The LVEDP was 15 mmHg. Pressures Phase:Rest AO : 118 / 66 ( 83 ) @ 8:38:00 AM 117 / 65 ( 87 ) @ 8:45:00 AM 117 / 65 ( 88 ) @ 8:45:00 AM 118 / 64 ( 85 ) @ 8:48:00 AM 120 / 70 ( 93 ) @ 8:57:00 AM 122 / 74 ( 96 ) @ 9:02:00 AM LV : 117 / 1 / 14 @ 8:45:00 AM 117 / 2 / 15 @ 8:45:00 AM Valves Phase:DefaultPhase AV : 0.0 @ 9:06:16 AM AV Mean Gradient: 0.0 @ 9:06:16 AM Clinical Evaluation EBL: 5mL-10mL Procedural Details Procedure Consent Obtained. Pre-Procedure Time Out. Identified patient by full name and date of as verbalized by the patient/guarantor. Does the consent match the physician's order: No. Accurate & Complete Informed Consent: Yes. Inpatient/Outpatient History & Physical on Chart: Yes. If H&P is completed, is and addenduem needed: No. Visualize and Verify Site with Patient/Guarantor: N/A. Relevant Radiology Images available: Yes. The risks, benefits, and alternatives of sedation and/or procedure were discussed by physician. The patient agrees to continue. Procedure started. [facility] Clinical Fraility Score: 3: Managing Well. It Consulting Manager Indications: Stable Known CAD, SOB, Abnormal stress test. Chest Pain Symptom Assessment: Typical Angina Symptoms. Cardiovascular Instability: No. Correct patient, site and procedure confirmed by cath team. PERRLA. Strong, equal hand treating engineer helper bilaterally. Lungs clear x 5 lobes. IV Site on Arrival: 20 gauge in the right anticubital. IV Fluids: 0.9% NaCl at KVO. 0 mL infused prior to laboratory tester. Pre Procedural Pulses: bilateral posterior tibial was Doppled. Pre Procedural Pulses: bilateral radial was 3+. Pre Procedural Pulses: right dorsalis pedis was Doppled. Pre Procedural Pulses: left dorsalis pedis was 3+. Oxygen started at 2liters/min via nasal canula. right groin was prepped with chloroprep then draped in the usual sterile fashion. right radial was prepped with chloroprep then draped in the usual sterile fashion. Physician notified. Baseline sample Acquired. HR: 92 BPM. Patient's family in CPRU room #3. Dr. Justin will update at the completion of the procedure. Equipment: 6F - Radial. Cardiac Cath Pack. ACIST Manifold Kit Model BT 2000. Heparinized Saline (2 units/mL), 1000 mL bag. Physician arrived. Physician scrubbed in. Immediate Pre-Procedure Time Out. Correct Patient: Yes; Correct Procedure: Yes; Correct Site: Yes; Correct Patient Position: Yes; Correct Supplies: Yes; Dried Flammable Prep: Yes; Blood Products Available: N/A;. Lidocaine 1% infiltrated to the right radial. Arterial access obtained. A 5 spanish Charles catheter in over the exchange J wire. Multiple views taken of left coronary artery. Catheter redirected to the RCA. Catheter removed over the exchange J wire. A 5 spanish JL4 catheter in over the exchange J wire. EDP Sample taken: LV 117/1,14; HR: 79 BPM; SpO2: 94%. Pullback taken: LV 117/2,15; AO 117/65(87); Mean: 0mmHg, Peak to Peak: 0mmHg, SEP: 6sec/min; HR: 78 BPM; SpO2: 94%. Multiple views taken of right coronary artery. Dr. Bruno called to view cineography. Catheter removed over the exchange J wire. Side port of sheath attached to Heparinized Saline flush at KVO to maintain patency. Dr. Justin scrubbed out. Dr. Bruno scrubbed in to perform intervention. Patient's family updated. 6 spanish XB 3 guide catheter was inserted over the wire. FFR guidewire was advanced through the guide catheter to lesion in the OM. iFR of the OM = 0.97 woth a pullback of 0.99. Wire out. Guide catheter out over the exchange J wire. Dr. Bruno scrubbed out. A TR Band was successful obtaining hemostatsis at the Right Radial artery insertion site. Post Procedure: Pulses reassessed and unchanged. PERRLA. Strong, equal hand treating engineer helper bilaterally. No VTE prophylaxis required. Medication's Wasted: Lidocaine 1% = 18 mL. Medication's Wasted: Nitro = 49.8 mg. Medication's Wasted: Heparin = 1000 units. Total IV fluids: 50 mL. Post-op diagnosis: Non-obstructive CAD. Complications: none. Estimated blood loss: 5mL-10mL. Responsiveness - Normal response to verbal stimuli; alert and oriented, PERRLA. Airway - Unaffected, no intervention required; spontaneous ventilation. Circulation: W/N/L, pulses unchanged. Nausea/Vomiting: No. Vital chart was stopped. Procedure completed. Patient transferred by wheelchair to CPRU. Access Site Site: Right Radial artery Sheath Size: 6 Fr Hemostasis Method: TR Band Hemostasis Success: Successful Procedure Medications Start: 8:27 AM Stop: 8:27 AM Medication: Fentanyl Amount: 25 mcg Route: I.V. Start: 8:27 AM Stop: 8:27 AM Medication: Versed Amount: 1 mg Route: I.V. Start: 8:32 AM Stop: 8:32 AM Medication: Versed Amount: 1 mg Route: I.V. Start: 8:32 AM Stop: 8:32 AM Medication: Fentanyl Amount: 25 mcg Route: I.V. Start: 8:35 AM Stop: 8:35 AM Medication: Nitrogylcerin Amount: 200 mcg Route: I.A. Start: 8:35 AM Stop: 8:35 AM Medication: Verapamil Amount: 5 mg Route: I.A. Start: 8:37 AM Stop: 8:37 AM Medication: Heparin Amount: 5000 units Route: I.V. Start: 8:46 AM Stop: 8:46 AM Medication: Fentanyl Amount: 25 mcg Route: I.V. Start: 8:57 AM Stop: 8:57 AM Medication: Heparin Amount: 5000 units Route: I.V. I, the attending physician, have reviewed and verified all procedure medications. Yes, all medications given per verbal order History/Risk Factors Hypertension: Yes Dyslipidemia: Yes Peripheral Arterial Disease (PAD): No Myocardial Infarction (NM): No Obesity: Yes Renal Disease: No Tobacco Use: Former Prior Interventions PCI: Yes CABG: No Valve Surgery: No Date of PCI: 01/05/2018 Report Signatures Interventional Workflow Finalized by Paul Bruno MD on 03/18/2025 12:23 PM Diagnostic Workflow Finalized by Dr Mervin Justin MD [facility] on 03/07/2025 09:48 PM
--- NOTE | 2025-03-07 08:07 | W.PM.OPSUD ---
Surgery/Procedure H&P Update DATE OF PROCEDURE: March 07, 2025 DATE H&P PERFORMED: 02/22/25 H&P UPDATE INFORMATION: I have reviewed H&P completed within last 30 days, I have examined patient prior to procedure and No changes to prior documentation PREOP DIAGNOSIS: ASHD PRIMARY INDICATION FOR PROCEDURE: Chest pain/abnormal stress test/previous PCI PLANNED PROCEDURE: Operation Date: 03/07/25 08:30 Proposed Procedures p Cardiac Catheterization(Left) - Mervin Justin MD PATIENT REASSESSED PRIOR TO SEDATION, WITH NO CHANGE NOTED: Yes PHYSICAL EXAM: alert, oriented x 3, clear to auscultation bilaterally and regular rate & rhythm AIRWAY EVAL/ANESTHESIA PLAN: normal airway, see other exam findings, ASA III, Monitored Anesthesia, Local Anesthesia, Risks, benefits & alternatives of sedation and/or procedure discussed and Patient agrees to continue as planned
== END 2025-03-07 14:00 | disposition home or self-care (01) ==
PROVIDERS: Internal Medicine; PCP Nurse Practitioner Family; Visit Provider Internal Medicine Cardiovascular Disease
DX: I25.10 Atherosclerotic heart disease of native coronary artery without angina pectoris (principal); I25.82 Chronic total occlusion of coronary artery; I10 Essential (primary) hypertension; E78.5 Hyperlipidemia, unspecified; E66.9 Obesity, unspecified; Z68.41 Body mass index [BMI] 40.0-44.9, adult; Z87.891 Personal history of nicotine dependence; E11.9 Type 2 diabetes mellitus without complications; Z79.82 Long term (current) use of aspirin; Z79.02 Long term (current) use of antithrombotics/antiplatelets; Z79.4 Long term (current) use of insulin; F41.8 Other specified anxiety disorders; Z79.891 Long term (current) use of opiate analgesic
CPT/HCPCS: 36415; 93458; 93571; 99152; 99153; C1769; C1887; C1894; J1644; J2250; J3010; J3490; J7030; J9999; Q0163; Q9967

== ENCOUNTER 2025-03-08 07:34 | Oncology outpatient (recurring) (ONCR) | payer MEDICARE, SELFPAY ==
[2025-03-08 07:47] LABS: Hematocrit 45.1 % (37-53); Hemoglobin 14.60 g/dL (11.27-16.99); Mean Corpuscular HGB Conc 32.4 g/dL (30-55); Mean Corpuscular Hemoglobin 25.3 pg (27-33); Mean Corpuscular Volume 78.3 fl (82-101); Nucleated Red Blood Cells % 0 %; Platelet Count 289 10^3/cmm (157-399); Red Blood Count 5.76 10^6/uL (3.85-5.65); White Blood Count 5.47 10^3/uL (3.29-11.43)
[2025-03-08 08:20] LABS: Alanine Aminotransferase 19 U/L (0-41); Albumin Level 3.9 g/dL (3.5-5.2); Alkaline Phosphatase 61 U/L (40-130); Anion Gap 12.7 (5-19); Aspartate Amino Transferase 17 U/L (0-40); Blood Urea Nitrogen 21 mg/dL (8-23); Calcium 9.5 mg/dL (8.5-10.5); Carbon Dioxide 28 mmol/L (22-29); Chloride 100 mmol/L (98-107); Globulin 3.5 g/dL (1.3-4.6); Glucose 131 mg/dL (65-115); Iron 40 ug/dL (59-158); Osmolality Calculated 287 mOsm/kg (285-295); Potassium 4.7 mmol/L (3.5-5.1); Sodium 136 mmol/L (136-145); Total Iron Binding Capacity 475 mcg/dl; Total Protein 7.4 g/dL (6.6-8.7); Unsaturated Iron Binding 435 ug/dL (112-347)
== END 2025-03-20 23:59 | disposition home or self-care (01) ==
PROVIDERS: Nurse Practitioner; PCP Nurse Practitioner Family; Visit Provider Nurse Practitioner Family
DX: Z53.9 Procedure and treatment not carried out, unspecified reason; D75.1 Secondary polycythemia
CPT/HCPCS: 36415; 80053; 83540; 83550; 85025

== ENCOUNTER 2025-04-06 09:22 | Oncology outpatient (recurring) (ONCR) | payer MEDICARE, SELFPAY ==
[2025-04-06 09:51] LABS: Hematocrit 46.5 % (37-53); Hemoglobin 15.00 g/dL (11.27-16.99); Mean Corpuscular HGB Conc 32.3 g/dL (30-55); Mean Corpuscular Hemoglobin 25.4 pg (27-33); Mean Corpuscular Volume 78.7 fl (82-101); Nucleated Red Blood Cells % 0 %; Platelet Count 271 10^3/cmm (157-399); Red Blood Count 5.91 10^6/uL (3.85-5.65); White Blood Count 5.32 10^3/uL (3.29-11.43)
[2025-04-06 10:13] LABS: Alanine Aminotransferase 21 U/L (0-41); Albumin Level 3.9 g/dL (3.5-5.2); Alkaline Phosphatase 64 U/L (40-130); Anion Gap 17.6 (5-19); Aspartate Amino Transferase 21 U/L (0-40); Blood Urea Nitrogen 15 mg/dL (8-23); Calcium 9.6 mg/dL (8.5-10.5); Carbon Dioxide 22 mmol/L (22-29); Chloride 102 mmol/L (98-107); Ferritin 21 ng/mL (30-400); Globulin 3.3 g/dL (1.3-4.6); Glucose 113 mg/dL (65-115); Iron 38 ug/dL (59-158); Osmolality Calculated 286 mOsm/kg (285-295); Potassium 4.6 mmol/L (3.5-5.1); Sodium 137 mmol/L (136-145); Total Iron Binding Capacity 467 mcg/dl; Total Protein 7.2 g/dL (6.6-8.7); Unsaturated Iron Binding 429 ug/dL (112-347)
== END 2025-04-20 23:59 | disposition home or self-care (01) ==
PROVIDERS: Nurse Practitioner; PCP Nurse Practitioner Family; Visit Provider Nurse Practitioner Family
DX: D75.1 Secondary polycythemia (principal); Z87.891 Personal history of nicotine dependence; Z99.89 Dependence on other enabling machines and devices
CPT/HCPCS: 36415; 80053; 82728; 83540; 83550; 85025; 99213

== ENCOUNTER → 2025-04-07 15:54 | Outpatient (BNVA) | payer MEDICARE, SELFPAY | PROVIDERS: PCP Nurse Practitioner Family; Visit Provider Nurse Practitioner Family | DX: I25.10 Atherosclerotic heart disease of native coronary artery without angina pectoris (principal); I10 Essential (primary) hypertension; Z51.89 Encounter for other specified aftercare; E78.2 Mixed hyperlipidemia; E11.9 Type 2 diabetes mellitus without complications; Z79.84 Long term (current) use of oral hypoglycemic drugs; D50.9 Iron deficiency anemia, unspecified; Z87.891 Personal history of nicotine dependence | CPT/HCPCS: 99214 ==